=== PATIENT | female | born 1930 | race Caucasian/White ===

== ENCOUNTER 2017-06-29 17:35 | Observation (INO) | payer MEDICARE, BC ==
[2017-06-29] MEDS ORDERED: Labetalol IV* 5 MG/ML 20 ML VIAL IV PUSH ONE ×2 (18:03→19:36)
[2017-06-29 18:31] LABS: Hematocrit 44 % (35-47); Hemoglobin 14.5 g/dl (12.0-16.0); Mean Corpuscular HGB Conc 33 g/dl (31-36); Mean Corpuscular Hemoglobin 30 pg (27-31); Mean Corpuscular Volume 90 fL (80-97); Mean Platelet Volume 8 um3 (7.4-10.4); Red Blood Count 4.85 10^6/ul (4.0-5.4); Red Cell Distribution Width 14 % (10.5-15); White Blood Count 6.7 10^3/ul (3.5-10.8)
[2017-06-29 18:48] LABS: BUN/Creatinine Ratio 17.7 (8-20); Calcium 9.4 mg/dL (8.6-10.3); EGFR African American 88.3 (>60); EGFR Non-African American 68.7 (>60); Globulin 3.7 g/dL (2-4); Potassium 3.5 mmol/L (3.5-5.0); Total Bilirubin 0.4 mg/dL (0.2-1.0); Total Protein 7.7 g/dL (6.4-8.9)
[2017-06-29 18:49] LABS: Troponin I 0.01 ng/mL (<0.04)
[2017-06-29 19:21] LABS: Urine Bacteria Absent (Absent); Urine Bilirubin Negative (Negative); Urine Glucose Negative (Negative); Urine Nitrite Negative (Negative)
[2017-06-29 19:27] LABS: TSH (Thyroid Stimulating Horm) 6.06 mcIU/mL (0.34-5.60)
--- NOTE | 2017-06-29 19:29 | RAD ---
INDICATION: Headache and hypertension COMPARISON: CT of the brain dated November 24, 2015 TECHNIQUE: Contiguous axial sections of the brain were obtained from the skull base to the vertex without contrast. FINDINGS: The ventricles, cisterns and sulci exhibit symmetrical extensive involutional changes unchanged from the prior CT examination. There is mild to moderate periventricular and subcortical white matter hypoattenuation, similar in appearance to the prior CT examination, most consistent with chronic microvascular disease.. The haynes-white matter differentiation is adequately maintained and there is no sulcal effacement. No significant focal abnormality or mass effect is present. There is no evidence for intracranial hemorrhage. Similar the prior CT examination, the left vertebral artery is either absent or extremely diminutive relative to the right. No significant focal osseous abnormality is present. The visualized portion of the paranasal sinuses and mastoid air cells appear clear. IMPRESSION: Chronic involutional and microvascular changes not significantly changed since the November 24, [address]
--- NOTE | 2017-06-29 19:33 | RAD ---
INDICATION: Hypertension COMPARISON: Chest x-ray dated November 24, 2015 TECHNIQUE: Single AP portable view of the chest was obtained. FINDINGS: Image quality is compromised due to the relative inferiority of a portable chest x-ray. The left upper chest cardiac pacemaker with 2 leads overlying the heart is unchanged from prior chest x-ray. The heart and mediastinum exhibit normal size and contour. Similar the prior chest x-ray, the lungs appear hyperaerated on the AP view. The lungs are grossly clear. There is no evidence of a large pleural effusion. Visualized bones are normal for the patient's age. IMPRESSION: No radiographic evidence for acute cardiopulmonary abnormality on this portable chest x-ray.
[2017-06-29] MEDS ORDERED: Ondansetron INJ* 2 MG/ML VIAL IV ONE (19:54)
[2017-06-29] MEDS ORDERED: Morphine INJ* 2 MG/ML 1 ML CARPUJECT IV ONE (19:54)
[2017-06-29] MEDS ORDERED: Iohexol 350* (CONTRAST) 500 ML MDV IV ONE (20:00)
[2017-06-29] MEDS ORDERED: Morphine INJ* 4 MG/ML 1 ML CARPUJECT ONE (20:36)
[2017-06-29] MEDS ORDERED: Morphine INJ* 4 MG/ML 1 ML CARPUJECT IV ONE (20:40)
--- NOTE | 2017-06-29 21:27 | RAD ---
CPT II: CPT II Codes: 3100F INDICATION: High blood pressure, diaphoresis and neck pain COMPARISON: None TECHNIQUE: A CT angiogram of the head and neck was performed with 80 cc of Omnipaque 350. Contiguous axial sections were obtained from the thoracic inlet through the the [place]. Images were reconstructed in the sagittal, coronal planes and in a 3-D volume rendered format. The distal cervical internal carotid artery diameter is used as the denominater for stenosis measurement. 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 The left common carotid artery branches directly from the arch of the aorta. The branch vessels of the aorta are tortuous and there are distribution but appear to be thoroughly patent. The common and internal carotid arteries are patent without hemodynamically significant stenosis. Right: Below the carotid bifurcation the common carotid artery measures 7 mm in short axis diameter. There is partially calcified atherosclerosis of the carotid bulb narrowing the lumen to 6 mm yielding 14% degree stenosis Left: Below the carotid bifurcation the common carotid artery measures 6 mm in diameter. There is mixed attenuation atherosclerosis of the carotid bulb narrowing the lumen to just under 5 mm yielding approximately 17% degree stenosis. The left vertebral artery is diminutive relative to the right. CTA of the brain: The internal carotid, anterior and middle cerebral arteries appear are patent without high grade stenosis or occlusion. The vertebral, basilar and posterior cerebral arteries appear patent without high grade stenosis or occlusion. The the [place] is complete with bilateral posterior communicating arteries identified. No focal luminal filling defect, aneurysm or vascular malformation is seen. NON-ARTERIAL FINDINGS: Degenerative changes of the cervical spine includes kyphotic deformity of the upper cervical spine and multilevel loss of intervertebral disc height. IMPRESSION: 1. No acute arterial abnormalities. 2. Degenerative changes as well as congenital variants described in body the report.
[2017-06-29] MEDS ORDERED: Acetaminophen TAB* 325 MG PO PRN (22:28)
[2017-06-29] MEDS ORDERED: Ondansetron INJ* 2 MG/ML VIAL IV PRN (22:28)
[2017-06-29] MEDS: hydrALAZINE IV* 20 MG/ML VIAL IV SLOW PU PRN (22:54)
[2017-06-29] MEDS ORDERED: amLODIPine TAB* 5 MG PO SCH (23:00)
[2017-06-29 23:16] LABS: T4 8.85 mcg/mL (6.09-12.23)
[2017-06-29 23:20] LABS: Free T3 3.4 pg/mL (2.5-3.9)
[2017-06-29 23:21] LABS: Free T4 1.24 ng/dL (0.61-1.12)
[2017-06-29 23:25] LABS: Total T3 0.83 ng/mL (0.87-1.78)
[2017-06-30] MEDS: cloNIDine TAB* 0.1 MG PO SCH ×2 (00:10→08:17)
[2017-06-30] MEDS: Carvedilol TAB* 6.25 MG PO SCH ×2 (00:10→08:18)
[2017-06-30] MEDS: hydrALAZINE IV* 20 MG/ML VIAL IV SLOW PU PRN (00:41)
--- NOTE | 2017-06-30 01:37 | HP ---
CC: Dr. Mitchell * HISTORY AND PHYSICAL: DATE OF ADMISSION: 06/29/17 PRIMARY CARE PROVIDER: Dr. Mitchell. ATTENDING PHYSICIAN WHILE IN THE HOSPITAL: Rajinder Urena MD * (report dictated by Vinnie Shah NP) CHIEF COMPLAINT: Headache. HISTORY OF PRESENT ILLNESS: Ms. Morgan is an 87-year-old female who over the last week has been having difficulty with blood pressure management. She has been checking it at home, following it closely and she has been following with her primary with attempts to get control of the blood pressure. She does have a visiting nurse who came in today and checked the blood pressure, it was noted to be in the 200s systolically. They tried getting in touch with her PCP but they were unsuccessful. The patient was instructed that should she have any symptoms of headache or chest pain that she should be evaluated. Later this afternoon she started developing pain in the back of her head, having headache, it was very severe. She did not have vision change, no chest pain, no shortness of breath. There has been no swelling or weight gain. There was concern though, because she was starting to have symptoms of headache. The patient decided to come into the ER today to be evaluated. Again, she denied having any chest pain. No weight change. When she came in here, blood pressures were in the 200s and initially responded to blood pressure medication here. They were coming down in the 160s systolically; however, she still had headache and the blood pressure was noted to go back up in the 180s and because of this we were asked to evaluate for admission. She does state that she has been under some stress recently as her sister did earlier this fall and that has been causing her some increased stress. She denies having any increased salt in her diet and states that she has not missed any blood pressure medications and there has not been any recent stoppages of blood pressure meds or changes. She came into the ER, was evaluated because of the labile blood pressure and the fact that her symptoms still had returned, but not as severe as previously, we were asked to evaluate for admission. PAST MEDICAL HISTORY: Significant for: 1. Hypertension. 2. Hiatal hernia. 3. GERD. 4. Depression. 5. Anxiety. 6. History of small bowel obstruction. PAST SURGICAL HISTORY: 1. She has had a pacemaker placement. 2. Appendectomy. 3. She has had small bowel resection. MEDICATIONS: Home meds, this is from Dr. Mitchell. We will try to clarify this tomorrow, but includes: 1. Ativan 0.5 mg p.o. daily as needed. 2. Catapres 0.3 mg p.o. b.i.d. 3. Lisinopril 40 mg daily. 4. B12, 1000 mcg p.o. daily. 5. D3, 1000 units p.o. daily. 6. Coreg 12.5 mg p.o. b.i.d. 7. Aspirin 81 mg daily. 8. Norvasc 5 mg at bedtime. 9. Tylenol 325 mg every 6 hours as needed. 11. Colace 200 mg p.o. at bedtime. ALLERGIES TO MEDICATIONS: No known drug allergies. FAMILY HISTORY: Mother had history of CAD. Father had history of prostate cancer. SOCIAL HISTORY: She does not smoke, does not drink. Surrogate decision maker is her son. REVIEW OF SYSTEMS: There is no documented fever. She denied having any significant weight changes. There was no double vision. There was no ear discharge. She denied having any rhinorrhea. There was no sore throat, no thyroid enlargement. Denied having any chest pain. There was no orthopnea, no nocturnal dyspnea. There was no abdominal pain. No nausea, no vomiting, no dysuria, no frequency, no seizure. There was no loss of consciousness. No pruritus. No skin ulceration. Review of 14 systems was completed, all others negative. PHYSICAL EXAMINATION GENERAL: At this time, Ms. Morgan is an 87-year-old female patient. She appears to be well nourished, well developed. She does not appear to be in any acute distress. She is sitting in the ER stretcher. VITAL SIGNS: Blood pressure 177/77, the last one in the room was 186/80. Heart rate was 65, respirations 16, O2 sat 96%, temperature 97.4. HEENT: Head: Atraumatic, normocephalic. Eyes: EOMs are intact. Sclerae anicteric and not pale. Throat: Oral mucosa appears to be moist. No oropharyngeal erythema. NECK: Supple. LUNGS: Clear to auscultation bilaterally. No wheezes, rales or rhonchi. HEART: Sounds S1 and S2. Regular rate and rhythm. No murmurs, rubs or gallops. ABDOMEN: Soft, flat, nontender. Bowel sounds present. EXTREMITIES: Pulses 2+ throughout. She is able to move all 4 extremities with 5/5 strength. NEUROLOGIC: The patient is awake. She is alert. She is oriented x3. Tongue is midline. Kettle Skimmer are equal. Hwxlzx-ip-hsho intact bilaterally. No gross focal deficits. SKIN: Intact. LABORATORY DATA/DIAGNOSTIC STUDIES: Labs revealed WBC of 6.7, RBC of 4.85, hemoglobin 14.5, hematocrit 44, platelet count 183,000. Sodium 133, potassium 3.5, chloride 99, bicarb 29, BUN 14, creatinine 0.79, glucose 94, calcium 9.4. Total bilirubin 0.4. AST 17, ALT 10, alk phos of 70. Troponin 0.01. BNP 114. TSH of 6.06. Urine obtained showed low specific gravity, 2+ protein, 1+ blood , 1+ RBC. The patient had a chest x-ray obtained today, impression: Showed no radiographic evidence for acute cardiopulmonary abnormality on this portable x- ray. She had a brain CT obtained today, showed chronic involutional change and microvascular changes not significantly changed since 2016 exam. Head CTA was obtained today, which showed no acute arterial abnormalities, degenerative changes, as well as congenital variants described in the body of the report. EKG obtained today shows a normal sinus rhythm, rate of 69. She did have some ST depressions in V5 and V6. No ST elevations. It was reviewed with previous EKGs, previous EKGs were paced. I looked back to unpaced rhythms previously, this ST depression is similar. Old medical records were reviewed. ASSESSMENT AND PLAN: Ms. Morgan is an 87-year-old female patient coming into the ER today with complaints of headache, found to have uncontrolled blood pressure. She will be admitted under observation status for: 1. Hypertensive urgency. Blood pressure now is in the 180s, it has gone up, they had it down in the 160s here in the ED. She has a little bit of pain in the back of her head, it is not as bad as it was before. I am going to give her p.r.n. hydralazine now. We will increase her Norvasc. We will give her her p.m. medications and we will increase the Norvasc to 10 mg daily. We could consider increasing the carvedilol as well that she is on 12.5, we could go up to 25 b.i.d., but I would like to do stepwise approach. We will place her on telemetry, cycle her troponins and get an echo. 2. Gastroesophageal reflux disease. Continue meds as prescribed. 3. Depression and anxiety. She has p.r.n. Ativan, we will continue with supportive care. 4. Hiatal hernia. Again she has a PPI therapy. 5. DVT prophylaxis. Because of the elevated blood pressure, I am just going to put her on SCDs and once the blood pressure is better controlled, we can consider adding heparin. 6. Code status, full code. 7. Fluid, electrolytes and nutrition. She can have a heart healthy diet. TIME SPENT: On the admission 60 minutes; greater than half the time was spent face- to-face with the patient obtaining my history and physical, other half of time was spent going over the plan of care and implementing plan of care. I did discuss the plan of care with my attending, Dr. Urena; he is in agreement. VINNIE SHAH, ANGELIQUE [id number]/CPS #: [id number] CHAYO
[2017-06-30 06:35] LABS: Hematocrit 42 % (35-47); Hemoglobin 14.2 g/dl (12.0-16.0); Mean Corpuscular HGB Conc 34 g/dl (31-36); Mean Corpuscular Hemoglobin 30 pg (27-31); Mean Corpuscular Volume 89 fL (80-97); Mean Platelet Volume 8 um3 (7.4-10.4); Red Blood Count 4.78 10^6/ul (4.0-5.4); Red Cell Distribution Width 14 % (10.5-15); White Blood Count 7.8 10^3/ul (3.5-10.8)
[2017-06-30 06:48] LABS: BUN/Creatinine Ratio 15.9 (8-20); Calcium 9.7 mg/dL (8.6-10.3); EGFR African American 84.6 (>60); EGFR Non-African American 65.8 (>60)
[2017-06-30] MEDS ORDERED: Lisinopril TAB* 10 MG PO SCH (09:00)
[2017-06-30] MEDS ORDERED: Aspirin EC Low Dose* 81 MG TAB.EC PO SCH (09:00)
[2017-06-30] MEDS ORDERED: Omeprazole CAP* 20 MG PO SCH (09:00)
--- NOTE | 2017-06-30 10:25 | ECHO ---
Patient: GINETTE CARR Rec#: [id number] : 1930 Date: 06/30/2017 Age: 87y Weight: kg / NaN lbs Sex: F Room#: 451 Admit Date#: 06/29/2017 Type: Inpatient Referring: Vinnie Shah NP Reading: Bahman Hannah MD Offc Spec: Belkys Lindsay RDCS CC: Jake Mitchell DO Transthoracic Echocardiogram Indication: Hypertension BP: 124/58 HR: 61 Rhythm: Paced Findings History: HTN,GERD,depression-anxiety,s/p Pacer for SSS. Technical Comments: The study quality is good. Completed at 0840. Left Ventricle: The left ventricular chamber size is decreased. Mild to moderate concentric left ventricular hypertrophy is observed. Global left ventricular wall motion and contractility are within normal limits. There is normal left ventricular systolic function. The estimated ejection fraction is 60-65%. There is abnormal ventricular septal wall motion consistent with right ventricular pacemaker. Left Atrium: The left atrial chamber size is normal. Right Ventricle: The right ventricular cavity size is normal. The right ventricular global systolic function is normal. The septum has abnormal paradoxical motion consistent with RV pacemaker. A pacemaker wire is visualized in the right ventricle. Right Atrium: The right atrial cavity size is normal. A pacemaker wire is visualized in the right atrium. Aortic Valve: The aortic valve is trileaflet. There is mild to moderate aortic regurgitation. There is no evidence of aortic stenosis. Mitral Valve: The mitral valve leaflets appear normal. There is mitral annular calcification. The mitral valve leaflets are mildly thickened. Tricuspid Valve: There is mild to moderate tricuspid regurgitation. There is evidence of mild to moderate pulmonary hypertension. There is no tricuspid stenosis. Pulmonic Valve: The pulmonic valve appears normal. There is a trace pulmonic regurgitation. There is no pulmonic stenosis. Pericardium: The pericardium appears normal. Aorta: There is no dilatation of the ascending aorta. There is no dilatation of the aortic arch. There is no dilation of the aortic root. Pulmonary Artery: The main pulmonary artery appears normal. Venous: The inferior vena cava appears normal in size. There is a greater than 50% respiratory change in the inferior vena cava dimension. Conclusions The left ventricular chamber size is decreased. Mild to moderate concentric left ventricular hypertrophy is observed. There is normal left ventricular systolic function. The estimated ejection fraction is 60-65%. There is abnormal ventricular septal wall motion consistent with right ventricular pacemaker. A pacemaker wire is visualized in the right ventricle. A pacemaker wire is visualized in the right atrium. There is mild to moderate aortic regurgitation. There is mild to moderate tricuspid regurgitation. There is evidence of mild to moderate pulmonary hypertension. There is a trace pulmonic regurgitation. Compared to report of study from 02/28/2010 the LV hypertrophy is now seen. The aortic regurgitation is mildly increased (was mild). Measurements Name Value Normal Range RVIDd (AP) 2D 3 cm (0.9 - 2.6) RVDdMajor (2D) 3.3 cm (2.2 - 4.4) RAd ISD 4CH 5.1 cm (3.4 - 4.9) RA (A4C)W 3.5 cm (2.9 - 4.6) IVSd (2D) 1.5 cm (0.6 - 1) LVPWd (2D) 1.2 cm (0.6 - 1) LVIDd (2D) 3.1 cm (3.6 - 5.4) LVIDs (2D) 2.5 cm - LV FS (2D) 19 % (25 - 45) Aortic Annulus 1.9 cm (1.4 - 2.6) Ao root diameter (2D) 3.2 cm (2.1 - 3.5) Ascending Ao 3.2 cm (2.1 - 3.4) Aortic arch 2.2 cm (1.8 - 3.4) Descending Ao 0.3 cm - LA dimension (AP) 2D 2.6 cm (2.3 - 3.8) LAd ISD 4CH 5.2 cm (2.9 - 5.3) LA ISD 4CH W 3.5 cm (2.5 - 4.5) Name Value Normal Range LA ESV SP 4CH (A/L) 49 ml - LA ESV SP 2CH (A/L) 62 ml - LA ESV BP (A/L) 59 ml - LA ESV BP (A/L) index 43.01 ml/m2 - LA ESV SP 4CH (MOD) 41 ml - LA ESV SP 2CH (MOD) 58 ml - Name Value Normal Range MV E-wave Vmax 0.4 m/sec - MV deceleration time 304 msec - MV A-wave Vmax 1.2 m/sec - MV E:A ratio 0.34 ratio - LV septal e' Vmax 0.02 m/sec - LV lateral e' Vmax 0.08 m/sec - LV E:e' septal ratio 20 ratio - LV E:e' lateral ratio 5 ratio - Name Value Normal Range AV Vmax 1.4 m/sec - AV VTI 31.7 cm - AV peak gradient 7.99 mmHg - AV mean gradient 3.96 mmHg - LVOT Vmax 1 m/sec - LVOT VTI 27.8 cm - LVOT peak gradient 4.4 mmHg - LVOT mean gradient 1.97 mmHg - AR PHT 539 msec - AR peak gradient 74.17 mmHg - Name Value Normal Range TR Vmax 3.2 m/sec - TR peak gradient 40 mmHg - RAP 3 mmHg - RVSP 43 mmHg - IVC diameter 1.4 cm - Name Value Normal Range PV Vmax 0.7 m/sec - PV peak gradient 2.08 mmHg -
[2017-06-30 11:46] VITALS: BP 117/57
--- NOTE | 2017-07-01 10:34 | DS ---
CC: Dr. Jake Mitchell * DISCHARGE SUMMARY: DATE OF ADMISSION: 06/29/17 DATE OF DISCHARGE: 06/30/17 ADMISSION DIAGNOSES: 1. Headache. 2. Hypertensive urgency. 3. GERD. 4. Hiatal hernia. 5. Depression. 6. Anxiety. DISCHARGE DIAGNOSES: 1. Headache. 2. Hypertensive urgency. 3. GERD. 4. Hiatal hernia. 5. Depression. 6. Anxiety. HOSPITAL COURSE: The patient is an 87-year-old woman who presents to the [facility] with a chief complaint of headache. She had been having difficulty with blood pressure management. Please see HPI for further details. The patient was admitted with systolic in 180s. The patient was placed on hydralazine. Her Norvasc was increased. The patient improved dramatically overnight. Her blood pressure on discharge was 117/57. Her headache resolved. The patient was stable for discharge to home. PHYSICAL EXAMINATION: On the day of discharge, well-developed, well-nourished woman, sitting up in bed, in no acute distress. Vital Signs: Temperature 97.8 degrees, heart rate 62 beats per minute, respiratory rate 16 breaths per minute , pulse ox 98%, blood pressure 117/57. HEENT: Normocephalic and atraumatic. Pupils are equal, round, and reactive to light. Moist mucous membranes. Neck: Supple. No JVD, bruits, palpable thyroid or lymphadenopathy. Chest: Clear to auscultation and percussion bilaterally. Cardiovascular: S1, S2 appreciated. Abdominal Exam: Positive bowel sounds in all 4 quadrants. Soft, nontender, and nondistended. No hepatosplenomegaly. Extremities: No cyanosis , clubbing, or edema. +2 peripheral pulses bilaterally. Neuro: Alert and oriented x3. Moves all extremities. Skin: No rashes or abnormalities. STUDIES DONE WHILE IN THE HOSPITAL: Chest x-ray, 06/29/17. Impression: No radiographic evidence for acute cardiopulmonary abnormality on this portable chest x-ray. Brain CT, 06/29/17. Impression: Chronic involutional microvascular changes, not significantly changed since 12/04/[address] Head CTA, 06/29/17. Impression: No acute arterial abnormalities, degenerative changes, as well as congenital variant described in the body of the report. Transthoracic echocardiogram, 06/29/17. Impression: Left ventricular chamber size is decreased, [id number] left ventricular hypertrophy observed. Normal left ventricular systolic function. Estimated ejection fraction is 60% to 65%. Abnormal ventricular septal wall motion consistent with right ventricular pacemaker. Pacemaker wire is visualized in the right ventricle. Pacemaker wire is visualized in the right atrium. Zjbo-vk-weactyes aortic regurg , riko-co-umodepie tricuspid regurg, evidence feuc-ex-jacojtch pulmonary hypertension, trace pulmonic regurgitation. Compared to report and study of 31/05, LV hypertrophy is now seen, the aortic regurgitation is mildly increased , it was mild. DISCHARGE MEDICATIONS: 1. Lorazepam 0.5 mg daily as needed. 2. Clonidine 0.3 mg twice daily. 3. Omeprazole 20 mg daily. 4. Lisinopril 40 mg daily. 5. Vitamin B12 1000 micrograms daily. 6. Cholecalciferol 1000 units daily. 7. Carvedilol 12.5 mg twice daily. 8. Aspirin 81 mg daily. 9. Acetaminophen 325 mg every 6 hours as needed. 10. Docusate 200 mg at bedtime. 11. Amlodipine 10 mg at bedtime. DISCHARGE PLAN: The patient will be discharged home. She is to follow up with her PCP within 1 week. The patient will return to the ED if symptoms recur. TIME SPENT: Over 35 minutes were spent on this discharge, more than 20 minutes of which was spent in direct qxwj-ts-fgrm contact with the patient, in evaluation, physical exam, counseling, and coordination of care. [id number]/CPS #: [id number] MTDD
--- NOTE | 2017-07-01 13:15 | ED ---
Navya Dumont Alfonso, scribed for Geoff Barksdale MD on 06/29/17 at 1802 . Complex/Multi-Sys Presentation - HPI Summary HPI Summary: This patient is an 87 year old F presenting to [facility] accompanied by son with a chief complaint of high blood pressure since two weeks ago. The patient rates the aching pain 5/10 in severity. Symptoms aggravated and alleviated by nothing. Patient reports diaphoresis, fatigue, and occipital headache. Patient denies extremity weakness, and blurred vision. - History Of Current Complaint Chief Complaint: EDHypertension Time Seen by Provider: 06/29/17 17:52 Hx Obtained From: Patient Onset/Duration: Gradual Onset, Lasting Weeks - 2, Still Present Timing: Constant Aggravating Factor(s): nothing Alleviating Factor(s): nothing Associated Signs And Symptoms: Positive: Other - diaphoresis, fatigue, and occipital headache. Patient denies extremity weakness, and blurred vision. - Allergies/Home Medications Allergies/Adverse Reactions: Allergies Allergy/AdvReac Type Severity Reaction Status Date / Time No Known Allergies Allergy Verified 02/25/17 15:19 PMH/Surg Hx/FS Hx/Imm Hx Cardiovascular History: Reports: Hx Hypertension, Hx Pacemaker/ICD - ICD GI History: Reports: Hx Hiatal Hernia, Hx Obstructive Bowel Sensory History: Reports: Hx Contacts or Glasses Opthamlomology History: Reports: Hx Contacts or Glasses EENT History: Denies: Hx Deafness - Surgical History Surgery Procedure, Year, and Place: pacemaker, bowels x2, appendectomy Infectious Disease History: No Infectious Disease History: Denies: Traveled Outside the [place] in Last 30 Days - Family History Known Family History: Positive: Hypertension - Social History Alcohol Use: Daily Alcohol Amount: 1 glass of wine a day Hx Substance Use: No Substance Use Type: Reports: None Hx Tobacco Use: No Smoking Status (MU): Never Smoked Tobacco Review of Systems Positive: Fatigue, Skin Diaphoresis. Negative: Fever Negative: Blurred Vision Positive: Other - High blood pressure Positive: Headache. Negative: Weakness All Other Systems Reviewed And Are Negative: Yes Physical Exam - Summary Physical Exam Summary: VITAL SIGNS: Reviewed. GENERAL: Patient is an elderly and nourished female who is lying comfortable in the stretcher. Patient is not in any acute respiratory distress. HEAD AND FACE: No signs of trauma. No ecchymosis, hematomas or skull depressions. No sinus tenderness. EYES: PERRLA, EOMI x 2, No injected conjunctiva, no nystagmus. Normal fundoscopy exam. EARS: Hearing grossly intact. Ear canals and tympanic membranes are within normal limits. MOUTH: Oropharynx within normal limits. NECK: Supple, trachea is midline, no adenopathy, no JVD, no carotid bruit, no c- spine tenderness, neck with full ROM. CHEST: Symmetric, no tenderness at palpation LUNGS: Clear to auscultation bilaterally. No wheezing or crackles. CVS: Regular rate and rhythm, S1 and S2 present, no murmurs or gallops appreciated. ABDOMEN: Soft, non-tender. No signs of distention. No rebound no guarding, and no masses palpated. Bowel sounds are normal. EXTREMITIES: FROM in all major joints, no edema, no cyanosis or clubbing. NEURO: Alert and oriented x 3. No acute neurological deficits. Speech is normal and follows commands. SKIN: Dry and warm Triage Information Reviewed: Yes Vital Signs On Initial Exam: Initial Vitals Temp Pulse Resp BP Pulse Ox 97.4 F 80 14 200/102 97 06/29/17 17:41 06/29/17 17:41 06/29/17 17:41 06/29/17 17:41 06/29/17 17:41 Vital Signs Reviewed: Yes - [place] Coma Scale Best Eye Response: 4 - Spontaneous Best Motor Response: 6 - Obeys Commands Best Verbal Response: 5 - Oriented Coma Scale Total: 15 Diagnostics - Vital Signs Vital Signs Temp Pulse Resp BP Pulse Ox 06/29/17 17:41 97.4 F 80 14 200/102 97 - Laboratory Result Diagrams: 06/29/17 18:25 06/29/17 18:25 Lab Statement: Any lab studies that have been ordered have been reviewed, and results considered in the medical decision making process. - Radiology CXR Radiology Interpretation Completed By: Radiologist - Pending official interpretation from radiologist. See [employer] - CT Brain CT Interpretation Completed By: Radiologist - Pending official interpretation from radiologist. See [employer] - EKG 1813 Cardiac Rate: NL EKG Rhythm: Sinus Rhythm - 71 BPM EKG Interpretation: Q waves in II and AVF. LVH. EKG Comparison: No Significant Change - 02/26/17 Complex Multi-Symp Course/Dx Assessment/Plan: This patient is an 87 year old F presenting to [facility] accompanied by son with a chief complaint of high blood pressure since two weeks ago. The patient rates the aching pain 5/10 in severity. Symptoms aggravated and alleviated by nothing. Patient reports diaphoresis, fatigue, and occipital headache. Patient denies extremity weakness, and blurred vision. An EKG reveals Sinus Rhythm, Q waves in II and AVF, and LVH. Initially the patient was placed on panel monitor, IV access was obtained, and she was given labetalol for the hypertension. The patient is still waiting CT brain, CXR, and blood results. The patients blood pressure has improved to 180/85 at this time. This patient will be signed out to Dr. Garcia to follow up test results, and for further assessment and disposition. The patient is hemodynamically stable, alert and oriented x3. - Diagnoses Provider Diagnoses: Uncontrolled hypertension Discharge - Discharge Plan Condition: Stable Disposition: OTHER Discharge Disposition Comment: Signed out to Dr. Garcia, pending disposition, awaiting CT, CXR, and labs. Referrals: Jake Mitchell DO [Primary Care Provider] - The documentation as recorded by the Navya fairbanks Alfonso accurately reflects the service I personally performed and the decisions made by , Geoff Barksdale MD.
== END 2017-06-30 16:33 | disposition home or self-care (01) ==
LOC: ED 17:35 → MEDTELE 22:26
PROVIDERS: ADMIT Hospitalist; ATTEND Internal Medicine
DX: I16.0 Hypertensive urgency (principal); R51 Headache; K21.9 Gastro-esophageal reflux disease without esophagitis; K44.9 Diaphragmatic hernia without obstruction or gangrene; F32.9 Major depressive disorder, single episode, unspecified; F41.9 Anxiety disorder, unspecified; Z95.0 Presence of cardiac pacemaker; Z79.82 Long term (current) use of aspirin; Z79.899 Other long term (current) drug therapy
CPT/HCPCS: 36415; 70450; 70496; 70498; 71010; 80048; 80053; 81003; 81015; 83880; 84436; 84439; 84443; 84479; 84481; 84484; 85025; 85610; 93005; 93306; 96374; 96375; 99285; A9270-GY; G0378; J0360; J2270; J2405; Q9967

== ENCOUNTER 2017-07-01 16:16 | Inpatient (IN) | payer MEDICARE, BC ==
[2017-07-01] MEDS ORDERED: NS 0.9% 1000 ML* 1,000 ML IV ONE (17:01)
[2017-07-01] MEDS ORDERED: fentaNYL* 50 MCG/ML 2 ML VIAL (100 MCG VIAL) IV SLOW PU ONE (17:28)
--- NOTE | 2017-07-01 18:08 | RAD ---
INDICATION: Fainting COMPARISON: Most recent comparison chest x-rays dated June 29, 2017 TECHNIQUE: Single AP portable view of the chest was obtained. FINDINGS: Image quality is compromised due to the relative inferiority of a portable chest x-ray. Again seen is a left upper chest cardiac pacemaker with 2 leads overlying the heart. The heart and mediastinum exhibit normal size and contour. The lungs are grossly clear. There is no evidence of a large pleural effusion. Visualized bones are normal for the patient's age. IMPRESSION: No radiographic evidence for acute cardiopulmonary abnormality on this portable chest x-ray.
[2017-07-01 18:13] LABS: Urine Bacteria Absent (Absent); Urine Bilirubin Negative (Negative); Urine Glucose Negative (Negative); Urine Nitrite Negative (Negative)
[2017-07-01 18:26] LABS: Hematocrit 42 % (35-47); Mean Corpuscular HGB Conc 33 g/dl (31-36); Mean Corpuscular Hemoglobin 30 pg (27-31); Mean Corpuscular Volume 90 fL (80-97); Mean Platelet Volume 8 um3 (7.4-10.4); Red Blood Count 4.66 10^6/ul (4.0-5.4); Red Cell Distribution Width 14 % (10.5-15); White Blood Count 17.9 10^3/ul (3.5-10.8)
[2017-07-01 18:42] LABS: Albumin 3.5 g/dL (3.2-5.2); BUN/Creatinine Ratio 23.1 (8-20); Calcium 8.6 mg/dL (8.6-10.3); EGFR African American 64.3 (>60); Globulin 3.2 g/dL (2-4); Potassium 3.7 mmol/L (3.5-5.0); Total Bilirubin 0.8 mg/dL (0.2-1.0); Total Protein 6.7 g/dL (6.4-8.9)
[2017-07-01 18:43] LABS: Troponin I 0.01 ng/mL (<0.04)
--- NOTE | 2017-07-01 19:01 | ED ---
Eun Dumont Gabriel, scribed for Sherry Sherman MD on 07/01/17 at 1657 . Syncope/Near Syncope - HPI Summary HPI Summary: This patient is an 87 year old F BIBA to [facility] accompanied by family with a chief complaint of a near syncopal episode that occurred this afternoon. Patient reports pain in the back of her neck, body tremors, weakness, and BP spikes. 5 days prior her BP was elevated and went to her PCP there a PA suggested upping her medication by 5mg but it did not prevent future spikes. She was hospitalized for it 2 nights ago. Today she drank prune juice for BM which induced diarrhea. - History Of Current Complaint Chief Complaint: EDGeneral Time Seen by Provider: 07/01/17 16:28 Hx Obtained From: Patient Onset/Duration: Lasting Hours - earlier in the day, Still Present Alleviating Factor(s): Nothing Associated Signs And Symptoms: Other - reports pain in the back of her neck, body tremors, weakness, and BP spikes Related History: Similar Episode/Dx as - 5 and 2 days ago - Allergies/Home Medications Allergies/Adverse Reactions: Allergies Allergy/AdvReac Type Severity Reaction Status Date / Time No Known Allergies Allergy Verified 02/25/17 15:19 Home Medications: Home Medications Acetaminophen TAB* [Tylenol TAB*] 325 mg PO Q6H PRN 07/01/17 [History Confirmed 07/01/17] Carvedilol TAB* [Coreg TAB*] 12.5 mg PO BID 07/01/17 [History Confirmed 07/01/17 ] Lisinopril [Lisinopril 40 MG-] 40 mg PO DAILY 07/01/17 [History Confirmed ] PMH/Surg Hx/FS Hx/Imm Hx Previously Healthy: No Cardiovascular History: Reports: Hx Auto Implanted Cardiovert Defib, Hx Hypertension, Hx Pacemaker/ICD - ICD GI History: Reports: Hx Hiatal Hernia, Hx Obstructive Bowel Sensory History: Reports: Hx Contacts or Glasses Denies: Hx Deafness, Hx Hearing Aid Opthamlomology History: Reports: Hx Contacts or Glasses - Surgical History Surgery Procedure, Year, and Place: pacemaker, bowels x2, appendectomy Infectious Disease History: No Infectious Disease History: Denies: Traveled Outside the [place] in Last 30 Days - Family History Known Family History: Positive: Hypertension Negative: Diabetes - Social History Alcohol Use: Daily Alcohol Amount: 1 glass of wine a day Hx Substance Use: No Substance Use Type: Reports: None Hx Tobacco Use: No Smoking Status (MU): Never Smoked Tobacco Review of Systems Constitutional: Other - body tremors Positive: Other - BP spikes Positive: Diarrhea - due to prune juice Positive: Other - pain in the back of neck Positive: Weakness Positive: Other - near syncopal episode All Other Systems Reviewed And Are Negative: Yes Physical Exam - Summary Physical Exam Summary: General: Well appearing, no pain distress Skin: Warm, Skin Color Reflects Adequate Perfusion, Dry Eyes: EOMI, DARRYN ENT: Pharynx normal, TMs normal Neck: Supple, nontender Respiratory: CTA, breath sounds present, no rhonchi, no wheezes, no rales Cardiovascular: RRR, no murmur, no rub, no gallop Abdomen: Soft, nontender, Non-distended, no guarding, no rebound Bowel: Present Musculoskeletal: JOEL, No edema, pain with raising right leg Neuro: Sensory/motor intact, A&Ox3, CN intact 2-12 Psych: Affect/mood appropriate Triage Information Reviewed: Yes Vital Signs On Initial Exam: Initial Vitals Temp Pulse Resp BP Pulse Ox 100.3 F 84 16 178/84 96 07/01/17 16:31 07/01/17 16:31 07/01/17 16:31 07/01/17 16:31 07/01/17 16:31 Vital Signs Reviewed: Yes Diagnostics - Vital Signs Vital Signs Temp Pulse Resp BP Pulse Ox 07/01/17 16:31 100.3 F 84 16 178/84 96 - Laboratory Lab Results: Lab Results 07/01/17 07/01/17 07/01/17 Range/Units 17:42 18:15 18:15 WBC 17.9 H (3.5-10.8) 10^3/ul RBC 4.66 (4.0-5.4) 10^6/ul Hgb 14.0 (12.0-16.0) g/dl Hct 42 (35-47) % MCV 90 (80-97) fL MCH 30 (27-31) pg MCHC 33 (31-36) g/dl RDW 14 (10.5-15) % Plt Count 154 (150-450) 10^3/ul MPV 8 (7.4-10.4) um3 Neut % (Auto) 94.7 H (38-83) % Lymph % (Auto) 1.3 L (25-47) % [place] % (Auto) 3.6 (1-9) % Eos % (Auto) 0.3 (0-6) % Baso % (Auto) 0.1 (0-2) % Absolute Neuts (auto) 16.9 H (1.5-7.7) 10^3/ul Absolute Lymphs (auto) 0.2 L (1.0-4.8) 10^3/ul Absolute Monos (auto) 0.6 (0-0.8) 10^3/ul Absolute Eos (auto) 0.1 (0-0.6) 10^3/ul Absolute Basos (auto) 0 (0-0.2) 10^3/ul Absolute Nucleated RBC 0 10^3/ul Nucleated RBC % 0 INR (Anticoag Therapy) 0.93 (0.89-1.11) APTT 26.9 (26.0-36.3) seconds Sodium (133-145) mmol/L Potassium (3.5-5.0) mmol/L Chloride (101-111) mmol/L Carbon Dioxide (22-32) mmol/L Anion Gap (2-11) mmol/L BUN (6-24) mg/dL Creatinine (0.51-0.95) mg/dL Est GFR ( Amer) (>60) Est GFR (Non-Af Amer) (>60) BUN/Creatinine Ratio (8-20) Glucose (70-100) mg/dL Lactic Acid (0.5-2.0) mmol/L Calcium (8.6-10.3) mg/dL Total Bilirubin (0.2-1.0) mg/dL AST (13-39) U/L ALT (7-52) U/L Alkaline Phosphatase (34-104) U/L Troponin I (<0.04) ng/mL Total Protein (6.4-8.9) g/dL Albumin (3.2-5.2) g/dL Globulin (2-4) g/dL Albumin/Globulin Ratio (1-3) Urine Color Yellow Urine Appearance Clear Urine pH 5.0 (5-9) Ur Specific [place] 1.010 (1.010-1.030) Urine Protein Negative (Negative) Urine Ketones Negative (Negative) Urine Blood 1+ H (Negative) Urine Nitrate Negative (Negative) Urine Bilirubin Negative (Negative) Urine Urobilinogen Negative (Negative) Ur Leukocyte Esterase Negative (Negative) Urine WBC (Auto) Trace(0-5/hpf) (Absent) Urine RBC (Auto) Trace(0-2/hpf) (Absent) Ur Squamous Epith Cells Present H (Absent) Urine Bacteria Absent (Absent) Urine Glucose Negative (Negative) 07/01/17 07/01/17 Range/Units 18:15 18:15 WBC (3.5-10.8) 10^3/ul RBC (4.0-5.4) 10^6/ul Hgb (12.0-16.0) g/dl Hct (35-47) % MCV (80-97) fL MCH (27-31) pg MCHC (31-36) g/dl RDW (10.5-15) % Plt Count (150-450) 10^3/ul MPV (7.4-10.4) um3 Neut % (Auto) (38-83) % Lymph % (Auto) (25-47) % [place] % (Auto) (1-9) % Eos % (Auto) (0-6) % Baso % (Auto) (0-2) % Absolute Neuts (auto) (1.5-7.7) 10^3/ul Absolute Lymphs (auto) (1.0-4.8) 10^3/ul Absolute Monos (auto) (0-0.8) 10^3/ul Absolute Eos (auto) (0-0.6) 10^3/ul Absolute Basos (auto) (0-0.2) 10^3/ul Absolute Nucleated RBC 10^3/ul Nucleated RBC % INR (Anticoag Therapy) (0.89-1.11) APTT (26.0-36.3) seconds Sodium 131 L (133-145) mmol/L Potassium 3.7 (3.5-5.0) mmol/L Chloride 99 L (101-111) mmol/L Carbon Dioxide 24 (22-32) mmol/L Anion Gap 8 (2-11) mmol/L BUN 24 (6-24) mg/dL Creatinine 1.04 H (0.51-0.95) mg/dL Est GFR ( Amer) 64.3 (>60) Est GFR (Non-Af Amer) 50.0 (>60) BUN/Creatinine Ratio 23.1 H (8-20) Glucose 98 (70-100) mg/dL Lactic Acid 1.1 (0.5-2.0) mmol/L Calcium 8.6 (8.6-10.3) mg/dL Total Bilirubin 0.80 (0.2-1.0) mg/dL AST 19 (13-39) U/L ALT 10 (7-52) U/L Alkaline Phosphatase 64 (34-104) U/L Troponin I 0.01 (<0.04) ng/mL Total Protein 6.7 (6.4-8.9) g/dL Albumin 3.5 (3.2-5.2) g/dL Globulin 3.2 (2-4) g/dL Albumin/Globulin Ratio 1.1 (1-3) Urine Color Urine Appearance Urine pH (5-9) Ur Specific [place] (1.010-1.030) Urine Protein (Negative) Urine Ketones (Negative) Urine Blood (Negative) Urine Nitrate (Negative) Urine Bilirubin (Negative) Urine Urobilinogen (Negative) Ur Leukocyte Esterase (Negative) Urine WBC (Auto) (Absent) Urine RBC (Auto) (Absent) Ur Squamous Epith Cells (Absent) Urine Bacteria (Absent) Urine Glucose (Negative) Result Diagrams: 07/01/17 18:15 07/01/17 18:15 Lab Statement: Any lab studies that have been ordered have been reviewed, and results considered in the medical decision making process. - Radiology CXR Radiology Interpretation Completed By: Radiologist - No radiographic evidence for acute cardiopulmonary abnormality on this portable chest x-ray. ED physician has reviewed this radiology report and agrees. Course/Dx Course Of Treatment: 87 yo female who went home yesterday from [facility] [place] with dx of hypertension had rigors a recorded low bp at home followed by a normal bp and she was brought back in. her wbc is 18 and the case has been discussed with Dr. Bear for admission - Diagnoses Provider Diagnoses: Near syncope, Leukocytosis - Physician Notifications Discussed Care of Patient With: Zak Hearn Time Discussed With Above Provider: 18:40 Instructed by Provider To: Other - We discussed patient care with Dr. Hearn, hospitalist and they have agreed to admit the patient. Discharge - Discharge Plan Condition: Stable Disposition: ADMITTED TO [facility] Referrals: Jake Mitchell DO [Primary Care Provider] - The documentation as recorded by the Eun fairbanks Gabriel accurately reflects the service I personally performed and the decisions made by me, Sherry Sherman MD.
[2017-07-01 19:43] LABS: Hematocrit 41 % (35-47); Hemoglobin 13.5 g/dl (12.0-16.0); Mean Corpuscular HGB Conc 33 g/dl (31-36); Mean Corpuscular Hemoglobin 30 pg (27-31); Mean Corpuscular Volume 89 fL (80-97); Mean Platelet Volume 8 um3 (7.4-10.4); Red Blood Count 4.57 10^6/ul (4.0-5.4); Red Cell Distribution Width 14 % (10.5-15); White Blood Count 17.3 10^3/ul (3.5-10.8)
[2017-07-01] MEDS ORDERED: Ondansetron INJ* 2 MG/ML VIAL IV PRN (20:25)
[2017-07-01] MEDS ORDERED: LORazepam TAB(*) 0.5 MG PO PRN (20:29)
[2017-07-01] MEDS ORDERED: NS 0.9% 1000 ML* 1,000 ML IV SCH (20:30)
[2017-07-01] MEDS ORDERED: Iodixanol* (CONTRAST) 320 MG/ML 100 ML SDV IV ONE (20:51)
[2017-07-01 20:52] LABS: C Reactive Protein 2.29 mg/L (< 5.00)
[2017-07-01] MEDS ORDERED: cefTRIAXone(*) 2 GM in NS 0.9% 100 ML* 100 ML IVPB SCH (21:00)
[2017-07-01] MEDS ORDERED: NS 0.9% IVPB SCH (21:00)
[2017-07-01] MEDS ORDERED: ACYCLOVIR IVPB SCH (21:00)
[2017-07-01] MEDS ORDERED: cefTRIAXone(*) 2 GM in NS 0.9% 100 ML* 100 ML IVPB ONE (21:00)
[2017-07-01 21:24] LABS: Erythrocyte Sed Rate 10 mm/Hr (0-40)
--- NOTE | 2017-07-01 21:46 | RAD ---
CLINICAL HISTORY: High blood pressure. Relevant surgical history includes appendectomy and "bowels x 2" COMPARISON: CT abdomen pelvis dated June 08, 2015 TECHNIQUE: Contrast enhanced CT examination of the abdomen and pelvis from the lung bases through the initial tuberosities. The patient received 80 mL Visipaque 320 intravenously prior to imaging.The patient received oral contrast as well prior to imaging. FINDINGS: VISUALIZED LUNG BASES: There is a stable moderate hiatal hernia causing compressive atelectasis along the medial margin of the left lower lobe with air bronchograms. There is pleural-based density along the lateral margin of the right middle lobe similar in appearance to the previous CT examination. The remaining visualized lung bases are clear. ABDOMEN AND PELVIS: In the right lobe of the liver there is an 8 mm hypodensity that is incompletely characterized on this CT examination. The remainder the liver is homogenous in attenuation. The spleen, pancreas and adrenal glands are grossly normal in appearance. The gallbladder is normal. Low-density foci are seen in the kidney that are too small to characterize completely on this CT examination. At the lower pole left kidney there is a low-density cyst measuring 23 Hounsfield unit likely a minimally complex benign cyst. Otherwise the kidneys are normal in appearance without focal mass, calcification or signs of hydronephrosis. Contrast is excreted in the bilateral collecting systems and proximal ureters on the delayed phase imaging. Evaluation of the gastrointestinal tract is limited without oral contrast. The small bowel is nondilated. There is surgical material the base of the cecum and the appendix is not seen consistent with the patient's reported surgical history. At the distal transverse colon and splenic flexure there appears to be wall thickening measuring up to 1.4 cm (axial image 38). Determination of wall thickening is limited without oral contrast. There are rectosigmoid diverticula without definite focal inflammatory change. There is no gross retroperitoneal or mesenteric lymphadenopathy. The pelvic viscera is normal in appearance. There is a small amount of simple fluid in the left inguinal canal. The moderately calcified abdominal aorta and iliac arteries exhibit ectatic curvature bladder otherwise grossly normal Degenerative changes include multilevel loss of intervertebral disc height involving the lower thoracic and lumbar spine, multilevel vacuum disc phenomenon and marginal osteophyte formation.There are no sinister bone lesions. IMPRESSION: 1. At the distal transverse and splenic flexure of the colon there is likely wall thickening measuring up to 1.4 cm in thickness. Evaluation is limited without oral contrast. Please correlate to signs or symptoms of colitis. A neoplastic etiology is not completely excluded. 2. Extensive chronic, degenerative and postsurgical changes that are not substantially changed when compared to the June 08, 2015 CT examination.
--- NOTE | 2017-07-01 21:53 | RAD ---
INDICATION: High blood pressure COMPARISON: None TECHNIQUE: A CT scan of the neck was performed with intravenous contrast following intravenous injection of 50 ml of Omnipaque 300 nonionic contrast. Contiguous axial sections were obtained from the skull base through the lung apices. Images were reconstructed in the coronal and sagittal planes. FINDINGS: The airway is patent. The epiglottis and aryepiglottic folds appear within normal limits. No retropharyngeal soft tissue swelling is noted. No significant enlarged nodes are seen. The parotid and submandibular glands appear to be within normal limits. The thyroid gland appears normal. At the right thyroid there is an 8 mm low-attenuation focus. The lung apices appear clear. The visualized portion of the paranasal sinuses and mastoid air cells appear clear. Degenerative changes of the cervical spine include loss of intervertebral disc height most severely affecting C4/C5 where there is articulating endplates sclerosis. There is a small degree of grade 1 anterolisthesis of C5 over C6. The visualized arteries including the arch of the aorta and branch vessels are adequately patent. There is calcified atherosclerosis at the bilateral carotid bulbs. The left carotid artery appears to become diminutive in its distal portion and is not well seen joining with the right to form the basilar artery. IMPRESSION: 1. Age-appropriate chronic and degenerative changes described above without CT apparent acute pathologic abnormality. 2. 8 mm low-attenuation focus in the right lobe of the thyroid that can be further characterized with nonemergent ultrasound if clinically warranted.
[2017-07-01] MEDS: amLODIPine TAB* 5 MG PO SCH (22:34)
[2017-07-01] MEDS: Carvedilol TAB* 6.25 MG PO SCH (22:35)
--- NOTE | 2017-07-01 22:35 | HP ---
CC: Dr. Mitchell * HISTORY AND PHYSICAL: DATE OF ADMISSION: 07/01/17 PRIMARY CARE PROVIDER: Dr. Mitchell. ATTENDING PHYSICIAN WHILE IN THE HOSPITAL: Rajinder Urena MD * (report dictated by Vinnie Shah NP) CHIEF COMPLAINT: 1. Neck pain. 2. Rigors. 3. Fever. HISTORY OF PRESENT ILLNESS: Ms. Morgan is an 87-year-old female patient who was recently here 2 days ago with uncontrolled hypertension. She had a headache then that seemed to be responsive to decreasing in her blood pressure. She was admitted overnight. She was discharged yesterday. She said she was feeling good yesterday, not having any complaints of neck pain or headache. She was not feeling weak, not having any cough, chills, shortness of breath, chest discomfort, or any diarrhea or vomiting. There was no fevers documented and her white count and labs remained stable. She went to home and around 3 o' clock today it was noted that she was shaking. The family was concerned, they checked her blood pressure, it was significantly low in the 70s systolic. They were concerned, called 911 immediately, 911 got there and they said her systolic blood pressures were in the 200s. They gave her 5 of Lopressor and the patient came into the ER. Unfortunately, her temperature was not documented or taken according to the family and when she got here, it was 100.3. She says the only thing that the family and the patient has been complaining of is that she is having some neck pain. There has been no confusion, no headache, no photophobia. There has been no recent illnesses except that she did have a stye in her right eye which is improving. The family is putting ointment in the eye and has also been using compresses. There has been no congestion, no sore throat, no shortness of breath. She does admit to having some left hip pain and there has been no open areas or rashes noted as well. She is just complaining of feeling weak. There has been no dysuria or any vomiting or any focal joint pain. The patient came in today, was evaluated in the ED, was noted to have a fever and noted to have a white count of 17,000. Noted to have a procalcitonin of 2.6 and because of this, the hospitalist service was asked to evaluate for admission. PAST MEDICAL HISTORY: Significant for: 1. Hypertension. 2. Hiatal hernia. 3. GERD. 4. Depression. 5. Anxiety. 6. History of SBO. PAST SURGICAL HISTORY: 1. The patient has had a pacemaker. 2. Appendectomy. MEDICATIONS: Home medications from yesterday's discharge include: 1. Tylenol 325 mg every 6 hours as needed. 2. Amlodipine 10 mg at bedtime. 3. Prilosec 20 mg daily. 4. Colace 200 mg at bedtime. 5. Vitamin D3, 1000 units p.o. daily. 6. Coreg 12.5 mg p.o. b.i.d. 7. Aspirin 81 mg daily. 8. Catapres 0.3 mg p.o. b.i.d. 9. Lisinopril 40 mg daily. 10. Ativan 0.5 mg daily as needed. 11. B12, 1000 mcg p.o. daily. ALLERGIES TO MEDICATIONS: Include no known drug allergies. FAMILY HISTORY: Mother had a history of CAD, father had prostate cancer. SOCIAL HISTORY: She does not smoke, does not drink. Surrogate decision maker is her son. REVIEW OF SYSTEMS: There is a documented fever here. She denied any significant weight change. No double vision, no ear discharge, no rhinorrhea, no sore throat, and no thyroid enlargement. Denies having any chest pain. There is no orthopnea. There is no nocturnal dyspnea. There was no abdominal pain, no nausea, no vomiting. There was no dysuria, no frequency. There was no seizure. No loss of consciousness, no pruritus, and no skin ulcerations. Review of 14 systems completed and all others negative. PHYSICAL EXAMINATION GENERAL: At this time, Mrs. Morgan is an 87-year-old female patient. She appears to be well nourished and well developed. She does not appear to be in any acute distress. VITAL SIGNS: Blood pressure 156/76, pulse 86, respirations 22, O2 sat 96%, and temperature 100.3. HEENT: Head atraumatic and normocephalic. Eyes: EOMs are intact. Sclerae anicteric and not pale. NECK: Supple. Throat; oral mucosa appears to be dry. No oropharyngeal erythema. LUNGS: Clear to auscultation. No wheezes, rales, or rhonchi. HEART: Sounds S1 and S2. Regular rate and rhythm. No murmurs, rubs, or gallops. ABDOMEN: Soft, flat, and nontender. Bowel sounds present. EXTREMITIES: Pulses were 2+ throughout. She did have pain with manipulation and movement of the left hip. There was no obvious erythema and no obvious pain when palpating the joint. The joint is mobile, but it has pain with movement. She had no pain with neck flexion or extension or rotation. It appeared to be supple at this point. She complains subjectively as having pain. NEUROLOGIC: She is awake, alert, and oriented x3. Tongue midline, chemical waste management technician are equal. No gross focal deficits were noted. SKIN: Intact. LABORATORY DATA/DIAGNOSTIC STUDIES: Today revealed a WBC of 17.3, RBC of 4.57 , hemoglobin 13.5, hematocrit 41, and platelet count of 127,000. She did have a left shift. ESR pending. INR 0.93. PTT of 26.9. Sodium of 131, potassium 3.7, chloride of 99, bicarb 24, BUN 24, creatinine of 1.04 which is up from her baseline of 0.8. Glucose was 98, lactic 1.1, calcium 8.6, total bili 0.8. AST is 19, ALT 10, alk phos 54, troponin 0.01. Albumin was 3.5. Her CRP was normal at 2.29, procalcitonin was 2.6. Urine was obtained, it showed 1+ blood. Serology was obtained; it was negative for flu. She had a chest x-ray obtained today which revealed no radiographic evidence for acute cardiopulmonary abnormality on the portable chest. Old medical records were reviewed. ASSESSMENT AND PLAN: Ms. Morgan is an 87-year-old female patient coming into the emergency department today with complaints of having neck pain, again now having fevers, chills, and now noted to have a white count and elevated procalcitonin. We were asked to evaluate for admission. She will be admitted under inpatient status for: 1. Systemic inflammatory response syndrome. Etiology is unclear. I would like to get a CT of the neck with contrast to make sure that there is not any underlying abscess. If this is negative, I would proceed with a spinal tap which I have asked the ER provider to do if the CT of neck is negative. I also placed her empirically on vanco, ceftriaxone, and acyclovir. I have also ordered CSF studies for cell count, culture, Gram stain, glucose, total protein , and herpes simplex virus. Should we need to proceed if the CT is positive, then I will cancel those orders. I am also ordering a CT of the abdomen and pelvis because of the hip pain she was having to make sure there is no underlying abscesses that we are missing. We did get bryan cultures. I did put her on empiric antibiotics and will hydrate her and will continue to follow her closely. 2. Hypertension. Her blood pressure is controlled in the setting of acute illness. I am going to hold that Salvador inhibitor, but I will continue her other meds. 3. Hiatal hernia and a history of gastroesophageal reflux disease. Continue her PPI therapy. 4. Depression and anxiety. Continue supportive care. 5. DVT prophylaxis. She will be placed on heparin subcu. 6. Code status. Full code. 7. Fluids, electrolytes, and nutrition. She can have a heart-healthy diet. TIME SPENT: On admission 60 minutes, greater than half the time was spent face- to- face with the patient obtaining my history and physical, other half of the time spent going over the plan of care with the patient and implementing the plan of care. I discussed the plan of care with my attending, Dr. Urena, who is in agreement. VINNIE SHAH, ANGELIQUE [id number]/[facility] #: [id number] CHAYO
[2017-07-01] MEDS: cloNIDine TAB* 0.1 MG PO SCH (22:36)
[2017-07-01] MEDS: Docusate CAP* 100 MG PO SCH (22:36)
[2017-07-01] MEDS ORDERED: Ciprofloxacin IV(*) 400 MG in D5W 250 ML BAG* 160 ML IVPB SCH (23:00)
--- NOTE | 2017-07-01 23:21 | HP ---
H&P (Free Text) History and Physical: Mrs Morgan is an 87YO female recently admitted to [facility] for hypertensive urgency, discharged yesterday who today developed rigors and chills and was brought in to [facility] ED via EMS for re-evaluation which found colitis on CT. She continues to have neck pain likely of musculoskeletal etiology. CT C-spine W is negative for acute finding or infection. She cannot have an MRI 2nd pacer. She will be admitted for IV ABX and monitoring.
[2017-07-02] MEDS: metroNIDAZOLE TAB* 250 MG PO SCH ×4 (00:34→20:43)
[2017-07-02] MEDS: Ciprofloxacin 400MG IVPREMIX(* 400 MG/200 ML BAG IVPB SCH ×3 (00:34→22:41)
[2017-07-02] MEDS: Heparin VIAL(*) 5000 UNITS/ML VIAL (FIVE THOUSAND) SUBCUT SCH ×4 (00:34→22:41)
[2017-07-02 07:20] LABS: Hematocrit 38 % (35-47); Hemoglobin 12.7 g/dl (12.0-16.0); Mean Corpuscular HGB Conc 33 g/dl (31-36); Mean Corpuscular Hemoglobin 30 pg (27-31); Mean Corpuscular Volume 91 fL (80-97); Mean Platelet Volume 9 um3 (7.4-10.4); Red Blood Count 4.23 10^6/ul (4.0-5.4); Red Cell Distribution Width 14 % (10.5-15); White Blood Count 10.5 10^3/ul (3.5-10.8)
[2017-07-02 07:21] LABS: BUN/Creatinine Ratio 21.6 (8-20); Blood Urea Nitrogen 21 mg/dL (6-24); CO2 Carbon Dioxide 22 mmol/L (22-32); Calcium 8.4 mg/dL (8.6-10.3); Chloride 102 mmol/L (101-111); EGFR African American 69.7 (>60); EGFR Non-African American 54.2 (>60); Glucose 91 mg/dL (70-100); Sodium 129 mmol/L (133-145)
[2017-07-02 08:10] LABS: Anion Gap 5 mmol/L (2-11)
[2017-07-02] MEDS ORDERED: Pneumococcal *Vac Polyvalent 0.5 ML VIAL IM ONE (09:00)
[2017-07-02] MEDS: cloNIDine TAB* 0.1 MG PO SCH ×2 (09:55→20:41)
[2017-07-02] MEDS: Carvedilol TAB* 6.25 MG PO SCH ×2 (09:55→20:42)
[2017-07-02] MEDS: Cyanocobalamin TAB* 500 MCG PO SCH (09:55)
[2017-07-02] MEDS: Omeprazole CAP* 20 MG PO SCH (09:55)
[2017-07-02] MEDS: Aspirin EC Low Dose* 81 MG TAB.EC PO SCH (09:56)
--- NOTE | 2017-07-02 10:46 | PN ---
Subjective Date of Service: 07/02/17 Interval History: This is an 87 yo female who presented with c/o fever and neck pain after recent hospitalization for hypertensive urgency. Imaging revealed possible colitis in LUQ, but patient denies abd pain, n/v/d. She was empirically treated with Cipro and Flagyl and she feels much better this am. The neck pain she was complaining of has resolved. No new symptoms. Objective Active Medications: Amlodipine Besylate (Norvasc Tab*) 10 mg PO BEDTIME [facility] Last Admin: 07/01/17 22:34 Dose: 10 mg Aspirin (Aspirin Ec Low Dose*) 81 mg PO DAILY [facility] Last Admin: 07/02/17 09:56 Dose: 81 mg Carvedilol (Coreg Tab*) 12.5 mg PO BID [facility] Last Admin: 07/02/17 09:55 Dose: 12.5 mg Clonidine HCl (Catapres Tab*) 0.3 mg PO BID [facility] Last Admin: 07/02/17 09:55 Dose: 0.3 mg Cyanocobalamin (Vitamin B12 Tab*) 1,000 mcg PO DAILY [facility] Last Admin: 07/02/17 09:55 Dose: 1,000 mcg Docusate Sodium (Colace Cap*) 200 mg PO BEDTIME [facility] Last Admin: 07/01/17 22:36 Dose: 200 mg Heparin Sodium (Porcine) (Heparin Vial(*)) 5,000 units SUBCUT Q8HR [facility] Last Admin: 07/02/17 05:30 Dose: 5,000 units Sodium Chloride (Ns 0.9% 1000 Ml*) 1,000 mls @ 100 mls/hr IV PER RATE [facility] Stop: 07/03/17 06:29 Last Admin: 07/02/17 00:34 Dose: 100 mls/hr Ciprofloxacin/Dextrose (Cipro 400 Mg Ivpremix(*)) 400 mg in 200 mls @ 200 mls/ hr IVPB Q12H [facility] Last Admin: 07/02/17 00:34 Dose: 200 mls/hr Lorazepam (Ativan Tab(*)) 0.5 mg PO DAILY PRN PRN Reason: ANXIETY Last Admin: 07/01/17 22:47 Dose: 0.5 mg Metronidazole (Flagyl Tab*) 500 mg PO TID [facility] Last Admin: 07/02/17 09:55 Dose: 500 mg Omeprazole (Prilosec Cap*) 20 mg PO DAILY [facility] Last Admin: 07/02/17 09:55 Dose: 20 mg Ondansetron HCl (Zofran Inj*) 4 mg IV Q6H PRN PRN Reason: NAUSEA Vital Signs: Temp Pulse Resp BP Pulse Ox 97.6 F 65 16 143/65 99 07/02/17 08:02 07/02/17 08:02 07/02/17 08:02 07/02/17 08:02 07/02/17 08:02 Oxygen Devices in Use Now: None Appearance: Well appearing elderly female in NAD. She is sitting up in a chair and accompanied by family. Respiratory: Symmetrical Chest Expansion and Respiratory Effort, Clear to Auscultation Cardiovascular: NL Sounds; No Murmurs; No JVD, RRR Abdominal: NL Sounds; No Tenderness; No Distention Extremities: - - trace LE edema Skin: No Rash or Ulcers Neurological: Alert and Oriented x 3 Result Diagrams: 07/02/17 06:48 07/02/17 08:47 Additional Lab and Data: . Diagnostic Imaging: CT neck - NAD, incidental finding a thyroid nodule CT abd/pelvis - focal wall thickening at the splenic flexure, possibly indicative of colitis CXR - NAD Assess/Plan/Problems-Billing Assessment: This is an 87 yo female with HTN, GERD, depression and anxiety who was recently hospitalized with a hypertensive urgency who returned with fever and neck pain. - Patient Problems (1) Febrile illness Comment: Etiology is not clear CT was suggestive of colitis, but no corresponding symptoms Fever and leukocytosis have resolved Cont Cipro/Flagyl (2) Hyponatremia Comment: h/o SIADH Stop IVF, repeat BMP in am (3) Hypertension Comment: Recent admission for hypertensive urgency Appears well controlled at this time Cont home antihypertensives (4) GERD (gastroesophageal reflux disease) (5) Depression Comment: Stable, no home medications (6) Full code status (7) DVT prophylaxis Comment: HSQ Status and Disposition: Inpatient. Anticipate possible dc tomorrow
[2017-07-02] MEDS ORDERED: Calcium Carbonate CHEW TAB* 500 MG (TUMS) PO PRN (14:32)
[2017-07-02] MEDS: Docusate CAP* 100 MG PO SCH (20:42)
[2017-07-02] MEDS: amLODIPine TAB* 5 MG PO SCH (20:43)
[2017-07-03] MEDS: Heparin VIAL(*) 5000 UNITS/ML VIAL (FIVE THOUSAND) SUBCUT SCH (05:41)
[2017-07-03 06:53] LABS: BUN/Creatinine Ratio 18.2 (8-20); EGFR Non-African American 60.6 (>60)
[2017-07-03 07:12] LABS: Hematocrit 37 % (35-47); Hemoglobin 12.2 g/dl (12.0-16.0); Mean Corpuscular HGB Conc 33 g/dl (31-36); Mean Corpuscular Hemoglobin 30 pg (27-31); Mean Corpuscular Volume 89 fL (80-97); Mean Platelet Volume 8 um3 (7.4-10.4); Red Blood Count 4.14 10^6/ul (4.0-5.4); Red Cell Distribution Width 14 % (10.5-15); White Blood Count 7.1 10^3/ul (3.5-10.8)
[2017-07-03] MEDS: Aspirin EC Low Dose* 81 MG TAB.EC PO SCH (07:44)
[2017-07-03] MEDS: Carvedilol TAB* 6.25 MG PO SCH (07:44)
[2017-07-03] MEDS: cloNIDine TAB* 0.1 MG PO SCH (07:45)
[2017-07-03] MEDS: Cyanocobalamin TAB* 500 MCG PO SCH (07:46)
[2017-07-03] MEDS: metroNIDAZOLE TAB* 250 MG PO SCH (07:47)
[2017-07-03] MEDS: Omeprazole CAP* 20 MG PO SCH (07:47)
[2017-07-03] MEDS ORDERED: Lisinopril TAB* 10 MG PO SCH (09:00)
[2017-07-03 09:20] VITALS: BP 177/76
--- NOTE | 2017-07-04 00:18 | DS ---
CC: Dr. Jake Mitchell * DISCHARGE SUMMARY: DATE OF ADMISSION: 07/01/17 DATE OF DISCHARGE: 07/03/17 PRIMARY CARE PROVIDER: Dr. Jake Mitchell. DISCHARGING PROVIDER: AKSHAT Amato SUPERVISING PHYSICIAN: Aneta Blunt DO * (DICTATED BY AKSHAT AMATO) PRIMARY DISCHARGE DIAGNOSES: 1. Febrile illness with elevated procalcitonin and of unclear source. 2. Hyponatremia. SECONDARY DISCHARGE DIAGNOSES: 1. Hypertension. 2. Gastroesophageal reflux disease. 3. Depression and anxiety. DISCHARGE MEDICATIONS: 1. Amlodipine 10 mg p.o. at bedtime. 2. Aspirin 81 mg p.o. daily. 3. Carvedilol 12.5 mg p.o. twice daily. 4. Vitamin D3, 1000 units p.o. daily. 5. Cipro 500 mg p.o. twice daily x5 days. 6. Clonidine 0.3 mg p.o. twice daily. 7. Vitamin B12, 1000 mcg p.o. daily. 8. Docusate 200 mg p.o. at bedtime. 9. Lisinopril 40 mg p.o. daily. 10. Lorazepam 0.5 mg p.o. daily. 11. Omeprazole 20 mg p.o. daily. MEDICATION CHANGES: Cipro x5 days. HOSPITAL IMAGIN. Chest x-ray shows no acute process. 2. CT of the abdomen and pelvis shows splenic flexure, bowel wall thickening with limited evaluation without oral contrast. 3. CT of the neck shows chronic and degenerative changes but no acute pathology. HOSPITAL COURSE: This is an 87-year-old female with history of hypertension, GERD, depression and anxiety who was admitted earlier in the week with hypertensive urgency and returned to the emergency department for re-evaluation within 24 hours due to fever and rigors with some associated neck pain. The patient did not have any similar episodes during her hospital stay earlier in the week. Her initial labs demonstrated significant leukocytosis with a white blood cell count of 17,900. Chemistry panel was significant for mild hyponatremia, procalcitonin was significantly elevated to 2.6, lactic acid was normal at 1.1. CRP interestingly within normal limits. Her urinalysis was unremarkable. Influenza testing was negative. Chest x-ray negative. Imaging including a CT scan of the cervical spine was unremarkable. She had a CT completed of her abdomen and pelvis as well, which showed some nonspecific thickening at the splenic flexure, possibly indicative of colitis. The patient had no complaints of abdominal pain. She was nontender in the left upper quadrant and had no complaints of nausea, vomiting or diarrhea, making colitis much less likely. The patient was empirically treated with Cipro and Flagyl for a presumed GI source of infection and her white blood cell count returned to normal and she remained afebrile. Her complaints of neck pain also resolved spontaneously. The exact etiology of patient's infection is not clear at the time of discharge. The only focal evidence of infection was bowel wall thickening on the CT, but her symptoms did not correspond. She has improved with antibiotics. DISPOSITION AND FOLLOWUP PLAN: The patient is being discharged to home with an additional 5 days of Cipro. Her blood pressure was noted to be well controlled during her hospital stay. We would recommend following up with her primary care provider next week to reevaluate symptoms. AKSHAT AMATO [id number]/[facility] #: [id number] MTDGuille
== END 2017-07-03 10:20 | disposition home health service (06) | DRG 392 ==
LOC: ED 16:16 → MED 20:23
PROVIDERS: ADMIT Hospitalist; ATTEND Hospitalist
DX: K52.9 Noninfective gastroenteritis and colitis, unspecified (principal); E87.1 Hypo-osmolality and hyponatremia; I10 Essential (primary) hypertension; F32.9 Major depressive disorder, single episode, unspecified; K21.9 Gastro-esophageal reflux disease without esophagitis; K44.9 Diaphragmatic hernia without obstruction or gangrene; R79.89 Other specified abnormal findings of blood chemistry; M54.2 Cervicalgia; F41.9 Anxiety disorder, unspecified; Z80.42 Family history of malignant neoplasm of prostate; Z23 Encounter for immunization; Z79.82 Long term (current) use of aspirin; Z95.810 Presence of automatic (implantable) cardiac defibrillator; Z82.49 Family history of ischemic heart disease and other diseases of the circulatory system
CPT/HCPCS: 36415; 70491; 71010; 74177; 80048; 80053; 81003; 81015; 83605; 84145; 84484; 85025; 85610; 85652; 85730; 86140; 87040; 87502; 90732; 94760; A9270-GY; J0744; J1644; J3010; Q9967

== ENCOUNTER 2017-07-05 10:42 | Observation (INO) | payer MEDICARE, BC ==
--- NOTE | 2017-07-05 12:18 | RAD ---
INDICATION: Syncope. COMPARISON: Comparison is made with a prior CT of the brain from June 29, 2017. Correlation is also made with a prior study from November 24, 2015. TECHNIQUE: Contiguous axial sections of the brain were obtained from the skull base to the vertex without contrast. FINDINGS: The ventricles, cisterns and sulci are enlarged. The ventricles are disproportionately enlarged although unchanged from prior studies. There are areas of decreased attenuation in the subcortical and periventricular white matter most consistent with moderate chronic small vessel ischemic changes. No other focal abnormality or mass effect is seen. There is no evidence for hemorrhage. No significant focal osseous abnormality is seen. The visualized portion of the paranasal sinuses and mastoid air cells appear clear. IMPRESSION: 1. NO EVIDENCE FOR ACUTE INTRACRANIAL ABNORMALITY. 2. ATROPHY AND FINDINGS CONSISTENT WITH CHRONIC SMALL VESSEL ISCHEMIC CHANGES WHICH APPEAR UNCHANGED FROM THE PRIOR STUDY.
--- NOTE | 2017-07-05 12:56 | RAD ---
INDICATION: Syncope. COMPARISON: Comparison is made with a prior chest x-ray study from June 29, 2017. TECHNIQUE: AP and lateral views of the chest were obtained. FINDINGS: The heart appears mildly enlarged and unchanged from the prior exam. There is a dual-chamber transvenous pacemaker present. The lungs are hyperinflated and clear. No pleural effusion is seen. IMPRESSION: NO EVIDENCE FOR ACUTE FINDING.
--- NOTE | 2017-07-05 13:01 | RAD ---
INDICATION: Right shoulder injury. TECHNIQUE: 4 views of the right shoulder were obtained. FINDINGS: The bones are osteopenic. There is widening of the acromioclavicular joint consistent with acromioclavicular separation. No fracture is seen. There is decreased space between the top of the humeral head and acromion process consistent with an underlying rotator cuff tear. There is severe osteoarthritic change in the glenohumeral joint. IMPRESSION: 1. AC SEPARATION, AGE INDETERMINATE, NO FRACTURE IS SEEN. 2. SEVERE OSTEOARTHRITIC CHANGE IN THE GLENOHUMERAL JOINT. 3. DECREASED ACROMIAL HUMERAL INTERVAL CONSISTENT WITH UNDERLYING ROTATOR CUFF TEAR.
--- NOTE | 2017-07-05 13:05 | RAD ---
INDICATION: Right humerus injury. TECHNIQUE: 2 views of the right humerus were obtained. FINDINGS: The bones are in normal alignment. No fracture is seen. There is severe osteoarthritic change in the glenohumeral joint and decreased humeral acromial interval consistent with a rotator cuff tear. IMPRESSION: NO EVIDENCE FOR FRACTURE.
[2017-07-05 13:11] LABS: Hematocrit 41 % (35-47); Hemoglobin 13.5 g/dl (12.0-16.0); Mean Corpuscular HGB Conc 33 g/dl (31-36); Mean Corpuscular Hemoglobin 30 pg (27-31); Mean Corpuscular Volume 90 fL (80-97); Mean Platelet Volume 8 um3 (7.4-10.4); Red Cell Distribution Width 14 % (10.5-15); White Blood Count 10.1 10^3/ul (3.5-10.8)
[2017-07-05 13:28] LABS: Albumin 3.5 g/dL (3.2-5.2); BUN/Creatinine Ratio 16.2 (8-20); EGFR African American 63.6 (>60); EGFR Non-African American 49.5 (>60); Globulin 3.3 g/dL (2-4); Magnesium 1.8 mg/dL (1.9-2.7); Potassium 3.6 mmol/L (3.5-5.0); Total Bilirubin 0.7 mg/dL (0.2-1.0); Total Protein 6.8 g/dL (6.4-8.9)
[2017-07-05 13:30] LABS: Troponin I 0.02 ng/mL (<0.04)
[2017-07-05] MEDS ORDERED: Magnesium Oxide TAB* 400 MG PO ONE (13:30)
[2017-07-05 13:46] LABS: TSH (Thyroid Stimulating Horm) 4.97 mcIU/mL (0.34-5.60)
[2017-07-05 14:12] LABS: Urine Bacteria 1+ (Absent); Urine Bilirubin Negative (Negative); Urine Glucose Negative (Negative); Urine Nitrite Negative (Negative)
[2017-07-05] MEDS ORDERED: Acetaminophen TAB* 325 MG PO PRN (17:17)
[2017-07-05] MEDS ORDERED: LORazepam TAB(*) 0.5 MG PO PRN (17:27)
[2017-07-05] MEDS ORDERED: Enoxaparin(*) 30 MG/0.3 ML SYR SUBCUT SCH (18:00)
--- NOTE | 2017-07-05 18:27 | ED ---
Navya Dumont Alfonso scribed for Geoff Barksdale MD on 07/05/17 at 1152 . Syncope/Near Syncope - HPI Summary HPI Summary: This patient is an 87 year old F BIBA to [facility] accompanied by male with a chief complaint of a witnessed syncopal episode earlier today. Male reports her eyes rolled, she was going backwards, and I caught her. The patient rates the pain 6/10 in severity. Symptoms aggravated by nothing. Symptoms alleviated by spontaneous resolution. Male reports confusion and RUE pain (since yesterday) . Male denies trauma. Patient denies abdominal pain. - History Of Current Complaint Chief Complaint: EDSyncope Time Seen by Provider: 07/05/17 11:20 Hx Obtained From: Patient Onset/Duration: Sudden Onset, Resolved Timing: Constant Context: Witnessed, Loss Of Consciousness Aggravating Factor(s): Nothing Alleviating Factor(s): Spontaneous Resolution Associated Signs And Symptoms: Other - Male reports confusion and RUE pain ( since yesterday). Male denies trauma. Patient denies abdominal pain. 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 Musculoskeletal History: Reports: Other Musculoskeletal History - CT scan shows DDD Sensory History: Reports: Hx Contacts or Glasses Denies: Hx Deafness, Hx Hearing Aid Opthamlomology History: Reports: Hx Contacts or Glasses - Surgical History Surgery Procedure, Year, and Place: pacemaker, bowels x2, appendectomy Infectious Disease History: No Infectious Disease History: Denies: Traveled Outside the [place] in Last 30 Days - Family History Known Family History: Positive: Hypertension Negative: Diabetes - Social History Alcohol Use: one glass of wine a day Alcohol Amount: 1 glass of wine a day Hx Substance Use: No Substance Use Type: Reports: None Hx Tobacco Use: No Smoking Status (MU): Never Smoked Tobacco Review of Systems Negative: Abdominal Pain Positive: Other - RUE pain (since yesterday); negative trauma Neurological: Other - Confusion Positive: Syncope All Other Systems Reviewed And Are Negative: Yes Physical Exam - Summary Physical Exam Summary: VITAL SIGNS: Reviewed. GENERAL: Patient is an elderly, fragile and nourished female who is lying comfortable in the stretcher. Patient is not in any acute respiratory distress. HEAD AND FACE: No signs of trauma. No ecchymosis, hematomas or skull depressions. No sinus tenderness. EYES: PERRLA, EOMI x 2, No injected conjunctiva, no nystagmus. EARS: Hearing grossly intact. Ear canals and tympanic membranes are within normal limits. MOUTH: Oropharynx within normal limits. Dry nasal and oral mucosa. NECK: Supple, trachea is midline, no adenopathy, no JVD, no carotid bruit, no c- spine tenderness, neck with full ROM. CHEST: Symmetric, no tenderness at palpation LUNGS: Clear to auscultation bilaterally. No wheezing or crackles. CVS: Regular rate and rhythm, S1 and S2 present, no gallops appreciated. Ejection systolic murmur 2/6. ABDOMEN: Soft, non-tender. No signs of distention. No rebound no guarding, and no masses palpated. Bowel sounds are normal. EXTREMITIES: FROM in all major joints, no edema, no cyanosis or clubbing. Multiple bruises at RUE. NEURO: Alert and oriented x 3. No acute neurological deficits. Speech is normal and follows commands. SKIN: Dry and warm Triage Information Reviewed: Yes Vital Signs On Initial Exam: Initial Vitals BP 110/55 07/05/17 11:05 Vital Signs Reviewed: Yes - Hewett Coma Scale Best Eye Response: 4 - Spontaneous Best Motor Response: 6 - Obeys Commands Best Verbal Response: 5 - Oriented Coma Scale Total: 15 Diagnostics - Vital Signs Vital Signs Temp Pulse Resp BP Pulse Ox 07/05/17 11:12 102/55 07/05/17 11:09 65 96 07/05/17 11:07 97.3 F 65 18 110/55 96 07/05/17 11:05 110/55 - Laboratory Result Diagrams: 07/05/17 12:40 07/05/17 12:40 Lab Statement: Any lab studies that have been ordered have been reviewed, and results considered in the medical decision making process. - Radiology Shoulder XR Radiology Interpretation Completed By: Radiologist - 1. AC SEPARATION, AGE INDETERMINATE, NO FRACTURE IS SEEN. 2. SEVERE OSTEOARTHRITIC CHANGE IN THE GLENOHUMERAL JOINT. 3. DECREASED ACROMIAL HUMERAL INTERVAL CONSISTENT WITH UNDERLYING ROTATOR CUFF TEAR. ED physician has reviewed this radiology report and agrees. Humerus XR Radiology Interpretation Completed By: Radiologist - NO EVIDENCE FOR FRACTURE. ED physician has reviewed this radiology report and agrees. CXR Radiology Interpretation Completed By: Radiologist - NO EVIDENCE FOR ACUTE FINDING. ED physician has reviewed this radiology report and agrees. - CT Brain CT Interpretation Completed By: Radiologist - 1. NO EVIDENCE FOR ACUTE INTRACRANIAL ABNORMALITY. 2. ATROPHY AND FINDINGS CONSISTENT WITH CHRONIC SMALL VESSEL ISCHEMIC CHANGES WHICH APPEAR UNCHANGED FROM THE PRIOR STUDY. ED physician has reviewed this radiology report and agrees. - EKG 1154 Cardiac Rate: NL EKG Rhythm: Sinus Rhythm - 67 BPM EKG Interpretation: Q wave in III and aVF. EKG Comparison: No Significant Change - 06/29/17 Course/Dx Assessment/Plan: This patient is an 87 year old F BIBA to [facility] accompanied by male with a chief complaint of a witnessed syncopal episode earlier today. Male reports her eyes rolled, she was going backwards, and I caught her. The patient rates the pain 6/10 in severity. Symptoms aggravated by nothing. Symptoms alleviated by spontaneous resolution. Male reports confusion and RUE pain (since yesterday). Male denies trauma. Patient denies abdominal pain. An EKG reveals Sinus Rhythm at 67 BPM, and Q wave in III and aVF. CXR reveals, per radiologist, NO EVIDENCE FOR ACUTE FINDING. ED physician has reviewed this radiology report and agrees. CT Brain reveals, per radiologist, 1. NO EVIDENCE FOR ACUTE INTRACRANIAL ABNORMALITY. 2. ATROPHY AND FINDINGS CONSISTENT WITH CHRONIC SMALL VESSEL ISCHEMIC CHANGES WHICH APPEAR UNCHANGED FROM THE PRIOR STUDY. ED physician has reviewed this radiology report and agrees. Humerus XR reveals, per radiologist, NO EVIDENCE FOR FRACTURE. ED physician has reviewed this radiology report and agrees. Shoulder XR reveals, per radiologist, 1. AC SEPARATION, AGE INDETERMINATE, NO FRACTURE IS SEEN. 2. SEVERE OSTEOARTHRITIC CHANGE IN THE GLENOHUMERAL JOINT. 3. DECREASED ACROMIAL HUMERAL INTERVAL CONSISTENT WITH UNDERLYING ROTATOR CUFF TEAR. ED physician has reviewed this radiology report and agrees. Test results with no significant abnormalities. In the ED course the patient has remained asymptomatic; however had a true witnessed syncopal episode with LOC. I consulted Dr. Velasquez (hospitalist) at 1611 who recommends pacemaker integration and admission. Patient will be admitted to [facility] with follow up from Dr. Velasquez. The patient is agreeable with this plan. The patient is hemodynamically stable, alert and oriented x3. - Diagnoses Provider Diagnoses: Syncope - Physician Notifications Discussed Care of Patient With: Stephanie Velasquez Time Discussed With Above Provider: 16:11 Instructed by Provider To: Other - Consulted Dr. Velasquez (hospitalist) at 1611 who agrees to admit. Discharge - Discharge Plan Condition: Stable Disposition: ADMITTED TO [facility] Referrals: Jake Mitchell DO [Primary Care Provider] - The documentation as recorded by the Navya fairbanks Alfonso accurately reflects the service I personally performed and the decisions made by , Geoff Barksdale MD.
[2017-07-05] MEDS ORDERED: amLODIPine TAB* 5 MG PO SCH (21:00)
[2017-07-05] MEDS: cloNIDine TAB* 0.1 MG PO SCH (21:02)
[2017-07-05] MEDS: Carvedilol TAB* 6.25 MG PO SCH (21:02)
--- NOTE | 2017-07-05 22:32 | HP ---
CC: Dr. Jake Mitchell * HISTORY AND PHYSICAL: DATE OF ADMISSION: 07/05/17 PRIMARY CARE PROVIDER: Dr. Jake Mitchell. ADMITTING PROVIDER: AKSHAT Amato SUPERVISING PHYSICIAN: Dr. Aneta Blunt* (DICTATED BY AKSHAT AMATO) CHIEF COMPLAINT: Syncope. HISTORY OF PRESENT ILLNESS: This is an 87-year-old female with hypertension, depression, and anxiety, who unfortunately has returned for the third time in nearly a week to the emergency department for a different complaint. The patient was seen for hypertensive urgency just about 1 week ago. At that time, her amlodipine was increased from 5 mg daily to 10 mg daily. No other medication changes are made. The patient then returned about 24 hours later with fever and chills. She had leukocytosis, but no obvious source of infection. CT scan of the abdomen and pelvis at that time identified a possible colitis, but her symptoms were not consistent with this. She was empirically treated with Cipro and Flagyl and discharged with ciprofloxacin. Since the time of discharge, the patient states that she did develop some diarrhea. No complaints of abdominal pain, nausea, or vomiting. She also developed some spontaneous right arm pain, which seems to be difficult to locate but somewhere in the shoulder or elbow region, but did not have any trauma. She denies any dizziness, head congestion, ear pain, or presyncopal events. Earlier this morning, the patient walked herself into the bathroom with the use of a walker. Her daughter states that she seems kind of slumped over, but was able to make it into the bathroom where she urinated and then upon leaving the bathroom, the patient called out for help and her daughter and son-in-law rushed in, when she was losing consciousness and helped her slowly lower to the floor. The patient was without consciousness for only a couple of seconds, at which point, she came to and stated that she was hungry. She did not lose bowel or bladder control, no tonic- clonic movements and she quickly became reoriented to the situation. PAST MEDICAL HISTORY: 1. Hypertension. 2. GERD. 3. Depression and anxiety. 4. Pacemaker in place. PAST SURGICAL HISTORY: 1. Pacemaker insertion. 2. Appendectomy. HOME MEDICATIONS: 1. Acetaminophen 325 mg p.o. q.6 hours as needed for pain. 2. Amlodipine 10 mg p.o. at bedtime. 3. Aspirin 81 mg p.o. daily. 4. Carvedilol 12.5 mg p.o. twice daily. 5. Vitamin D3 1000 units p.o. daily. 6. Cipro 500 mg p.o. twice daily for 5 days. 7. Clonidine 0.3 mg p.o. twice daily. 8. Vitamin B12 1000 mg p.o. daily. 9. Docusate 200 mg p.o. at bedtime. 10. Lisinopril 40 mg p.o. daily. 11. Ativan 0.5 mg p.o. daily as needed for anxiety. 12. Prilosec 20 mg p.o. daily. SOCIAL HISTORY: The patient lives at home with her daughter and son-in-law. REVIEW OF SYSTEMS: As noted above in the HPI. All other systems reviewed and considered negative. PHYSICAL EXAMINATION GENERAL: This is a very pleasant 87-year-old female accompanied by her son and [id number]. VITAL SIGNS: Temperature 97.3 degrees Fahrenheit, pulse 66 beats per minute, respiratory rate 18 per minute, oxygen saturation 96% on room air, blood pressure 110/55 mmHg. HEENT: Head is normocephalic, atraumatic. Mucous membranes are pink and moist. RESPIRATORY: Lungs are clear to auscultation without wheezes, crackles, or rhonchi. CARDIOVASCULAR: Heart has a regular rate and rhythm without murmurs, rubs, or gallops. ABDOMEN: Soft and nontender to palpation. EXTREMITIES: No edema appreciated. PSYCH: The patient is alert and appropriately oriented. DIAGNOSTIC STUDIES/LAB DATA: CBC is essentially within normal limits with a white blood cell count of 10,100, hemoglobin of 13.5 g/dL, and a platelet count of 193,000. INR normal at 0.96, PTT normal at 30. Sodium slightly low at 130 mmol/L, BUN 17, creatinine 1.05, random glucose of 102, magnesium was 1.8. BNP 336. Troponin negative at 0.02. TSH was 4.9. Urinalysis within normal limits. Imagin. CT brain shows no acute process. 2. Chest x-ray shows no acute disease. 3. EKG is sinus rhythm without acute ischemia. 4. X-ray of the humerus shows no fracture or other acute process. 5. Shoulder x-ray shows AC separation of uncertain acuity and some degenerative changes. ASSESSMENT AND PLAN: This is an 87-year-old female, who presents for the third time in a week to the emergency department after a syncopal episode. She will be admitted to a period of observation for further evaluation. 1. Syncope - etiology is unclear. Orthostatic vital signs were completed in the emergency department, which were within normal limits. The patient did express dizziness while standing with those, but no change in heart rates or really any change in blood pressure whatsoever. Review of EMS records showed that her blood pressure was 140/90 when they arrived to the home. The only recent medication change is the introduction of Cipro for an unspecified infection with some mild diarrhea, but again no evidence of orthostasis or dehydration on exam. Her pacemaker will be interrogated, [facility] has already been contacted and apparently the information that can be reviewed remotely was unremarkable. We will plan to place her on continuous telemetry monitoring to evaluate for dysrhythmia. Based on the circumstances of her complaints of right arm pain along with a trip to the bathroom that preceded her syncopal episode, I feel like the most likely explanation is vasovagal, maybe associated orthostasis. She is on very high doses of clonidine, which can certainly be associated with orthostatic hypotension and her dose of the amlodipine was also recently increased. We will decrease her clonidine dose to 0.1 mg twice daily from 0.3 mg and continue amlodipine at 10 mg daily. I plan to discontinue her Cipro altogether as she is having some nonspecific orthopedic complaints in her right arm. Imaging of her head and neck vasculature has recently been completed. She had a CTA of the head and neck on 06/29/17, which showed no significant stenosis or aneurysm. 2. Hypertension - the patient is normotensive in the emergency department. We will change antihypertensive medications as described above. 3. Depression and anxiety. The patient appears euthymic. 4. Code status. The patient is full code. 5. DVT prophylaxis. The patient will be started on Lovenox subcu. 6. Healthcare proxy is the patient's son. DISPOSITION: The patient is being admitted to observation status with anticipated discharge tomorrow. AKSHAT AMATO [id number]/[facility] #: [id number] [facility] CENTERGuille
[2017-07-06 06:21] LABS: Hematocrit 38 % (35-47); Hemoglobin 12.7 g/dl (12.0-16.0); Mean Corpuscular HGB Conc 34 g/dl (31-36); Mean Corpuscular Hemoglobin 30 pg (27-31); Mean Corpuscular Volume 89 fL (80-97); Mean Platelet Volume 9 um3 (7.4-10.4); Red Blood Count 4.23 10^6/ul (4.0-5.4); Red Cell Distribution Width 14 % (10.5-15); White Blood Count 8.3 10^3/ul (3.5-10.8)
[2017-07-06 06:38] LABS: BUN/Creatinine Ratio 17.6 (8-20); EGFR African American 81.2 (>60); EGFR Non-African American 63.1 (>60)
[2017-07-06 07:48] LABS: Potassium 3.8 mmol/L (3.5-5.0)
[2017-07-06] MEDS ORDERED: Omeprazole CAP* 20 MG PO SCH (09:00)
[2017-07-06] MEDS ORDERED: Lisinopril TAB* 10 MG PO SCH (09:00)
[2017-07-06] MEDS: cloNIDine TAB* 0.1 MG PO SCH (09:32)
[2017-07-06] MEDS: Carvedilol TAB* 6.25 MG PO SCH (09:34)
[2017-07-06 12:21] VITALS: BP 124/75
--- NOTE | 2017-07-06 13:34 | DCNOTE ---
Subjective Date of Service: 07/06/17 Interval History: Patient seen and examined at bedside. Patient denies dizziness at this time. Has not yet been out of bed. Patient does not remember being dizzy before her episode yesterday. BP controlled here. Not orthostatic. Family History: Unchanged from Admission Social History: Unchanged from Admission Past Medical History: Unchanged from Admission Objective Active Medications: Acetaminophen (Tylenol Tab*) 650 mg PO Q4H PRN Amlodipine Besylate (Norvasc Tab*) 10 mg PO BEDTIME QASIM Carvedilol (Coreg Tab*) 12.5 mg PO BID QASIM Clonidine HCl (Catapres Tab*) 0.1 mg PO BID QASIM Enoxaparin Sodium (Lovenox(*)) 30 mg SUBCUT Q24H QASIM Lisinopril (Prinivil Tab*) 40 mg PO DAILY QASIM Lorazepam (Ativan Tab(*)) 0.5 mg PO DAILY PRN Omeprazole (Prilosec Cap*) 20 mg PO DAILY QASIM Vital Signs Temp Pulse Resp BP Pulse Ox 99.1 F 90 16 124/75 98 07/06/17 11:56 07/06/17 12:19 07/06/17 11:56 07/06/17 12:19 07/06/17 11:56 Oxygen Devices in Use Now: None Appearance: sitting up in bed, NAD Eyes: No Scleral Icterus, PERRLA Ears/Nose/Mouth/Throat: NL Teeth, Lips, Gums Neck: NL Appearance and Movements; NL JVP Respiratory: Symmetrical Chest Expansion and Respiratory Effort, Clear to Auscultation Cardiovascular: NL Sounds; No Murmurs; No JVD, RRR Abdominal: NL Sounds; No Tenderness; No Distention Extremities: No Edema Skin: No Rash or Ulcers Neurological: Alert and Oriented x 3, NL Muscle Strength and Tone Lines/Tubes/Other Access: Clean, Dry and Intact Peripheral IV Nutrition: Taking PO's Result Diagrams: 07/06/17 05:43 07/06/17 05:43 Assess/Plan/Problems-Billing 87 y/o F w/ hx of HTN, GERD, SSS s/p pacer, with 2 recent admissions to [facility] who presented to the ED 07/05 after a syncopal episode. - Patient Problems (1) Syncope (2) GERD (gastroesophageal reflux disease) (3) Hypertension (4) DVT prophylaxis (5) Full code status Status and Disposition: OBV for syncope. Pt stable to be discharged home. See full dictated discharge summary for detail.
--- NOTE | 2017-07-07 06:19 | DS ---
CC: Dr. Reilly * DISCHARGE SUMMARY: DATE OF ADMISSION: 07/05/17 DATE OF DISCHARGE: 07/06/17 PRIMARY CARE PROVIDER: Dr. Mitchell. ATTENDING PHYSICIAN: Dr. Aneta Blunt * (reported dictated by Torin Aragon NP ). FRAME ASSEMBLER: Dr. Reilly. PRIMARY DIAGNOSES: 1. Syncope. 2. Hypertension. 3. Gastroesophageal reflux disease. 4. Sick sinus syndrome, with pacemaker in place. 5. Depression and anxiety. STUDIES WHILE IN THE HOSPITAL: 1. Right humerus x-ray: No evidence for acute fracture. 2. Chest x-ray, 07/05/17: No evidence for acute finding. 3. Shoulder, right, 2 views, 07/05/17: AC separation, age indeterminate, no fracture seen, severe osteoarthritic change in the glenohumeral joint. Decreased acromiohumeral interval consistent with underlying rotator cuff tear. 4. CT of the brain, 07/05/17: No evidence for acute intracranial abnormality, atrophy, and findings consistent with chronic small vessel ischemic changes which appear unchanged from prior study. MEDICATIONS AT THE TIME OF DISCHARGE: Changed medications: 1. Clonidine decreased from 0.3 mg twice daily to 0.1 mg twice daily. Ciprofloxacin has been discontinued. Following medications are all medications the patient came in on: 1. Prilosec 20 mg oral daily. 2. Colace 200 mg oral at bedtime. 3. B12 1000 mcg oral daily. 4. Vitamin D3 1000 units oral daily. 5. Aspirin 81 mg oral daily. 6. Ativan 0.5 mg oral daily as needed. 7. Amlodipine 10 mg oral at bedtime. 8. Carvedilol 12.5 mg oral twice daily. 9. Lisinopril 40 mg in the evening. 10. Tylenol 325 mg oral every 6 hours as needed. HISTORY OF PRESENT ILLNESS AND HOSPITAL COURSE: Ms. Morgan is an 87-year- old female with a history of hypertension, depression, and anxiety, who returned to the emergency room on 07/05/17 for the third time in nearly a week after a syncopal episode. The patient was admitted earlier in the week for hypertensive urgency. At that time, her amlodipine was increased. She then returned 24 hours later with fever and chills. At that time, she was placed on Cipro and Flagyl and discharged on ciprofloxacin. Yesterday, when the patient was walking, she slumped over. The patient was placed on the telemetry floor. The patient recently had vascular imaging of her head and neck which was normal. In addition, the patient has also had recent echocardiogram. The patient's clonidine was decreased to 0.1 mg from 0.3 mg because of the fact it causes orthostatic hypotension. With this decrease, the patient's blood pressure has remained controlled. Around noon, the patient's blood pressure was 129/68. She had vital signs performed at this time, which were negative for any orthostasis. The patient's pacer was interrogated. The pacer interrogation will be faxed to Dr. Reilly's office. The pacer interrogation did show multiple very short AMS episodes that look to be atrial noise that were interpreted as atrial fibrillation. The patient's almond roaster was notified and the patient has followup on 07/14/17 with her almond roaster. Prior to discharge, the patient was ambulated with Nursing with a walker. At this point, the patient appeared to be at baseline and was stable to be discharged home. I gave strict instructions for both the patient and her son regarding monitoring of her blood pressure. They should take her blood pressure every morning and notify her primary care provider if the systolic is less than 120. The patient had a urinalysis done while she was here that was negative, yet the culture grew Staph aureus and Staph epidermidis; this appears to be a contaminant and she will not be treated as she is not symptomatic at this time. In addition, the patient had vague orthopedic complaints of her arm and x-ray was performed and this showed rotator cuff repair of unknown age. The patient should have orthopedic followup if she continues to have pain with her right arm. On 07/06/17, vitals were as follows: Temperature 99.1, heart rate 90, respiratory rate 16, blood pressure 124/75, oxygen saturation 98% on room air. At this point, the patient was stable for discharge. DISCHARGE PLAN: The patient is discharged on a low-sodium diet. The patient has an appointment with her primary care provider, Dr. Mitchell, tomorrow, 07/07/17 , and additionally has an appointment with her almond roaster, Dr. Reilly, on 12/24. The patient should return to the hospital if she experiences any further syncopal episodes or high fever. I have reviewed other instructions with the patient and she is agreeable with the discharge today. This is a summarized report of a complex medical history and hospital stay. For more details, please see the entire medical record. TIME SPENT: Time for the discharge was 50 minutes, and 25 minutes was spent with the patient discussing medications, discharge, and followup instructions. CONDITION ON DISCHARGE: Stable. TORIN ARAGON NP [id number]/[facility] #: [id number] [facility]
== END 2017-07-06 16:00 | disposition home or self-care (01) ==
LOC: ED 10:42 → MEDTELE 17:23
PROVIDERS: ADMIT Internal Medicine; ATTEND Hospitalist
DX: R55 Syncope and collapse (principal); I10 Essential (primary) hypertension; K21.9 Gastro-esophageal reflux disease without esophagitis; Z95.0 Presence of cardiac pacemaker; I49.5 Sick sinus syndrome; F32.9 Major depressive disorder, single episode, unspecified; F41.9 Anxiety disorder, unspecified; Z79.82 Long term (current) use of aspirin; Z79.899 Other long term (current) drug therapy; R94.31 Abnormal electrocardiogram [ECG] [EKG]
CPT/HCPCS: 36415; 70450; 71020; 80048; 80053; 81003; 81015; 83605; 83735; 83880; 84443; 84484; 85025; 85610; 85730; 87077; 87086; 87186; 93005; 96372; 99285; A9270-GY; G0378; J1650

== ENCOUNTER 2017-07-31 01:57 | Emergency (ER) | payer MEDICARE, BC ==
--- OUTSIDE RECORDS SUMMARY | 2017-07-31 02:11 | XMS REPORT ---
:1930 External Reference #:[id number] Author Organization [employer] [facility] Address [address] [place] [address] Phone [phone] Care Team Providers Name Role Phone Asad Bliss MD Primary Care Physician Unavailable Payers Type Date Identification Numbers Payment Provider Subscriber Medicare Primary Effective: Policy Number: Medicare - NGS Ynes Morgan 1995 [id number] PayID: [id number] [address] [place] [address] Commercial Policy Number: [id number] [place] Plan Ynes Morgan PayID: [id number] [address] [place] [address] Problems Date Description Provider Status Onset: Permanent cardiac pacemaker procedure Active Onset: Gastroesophageal reflux disease Active Onset: Essential hypertension Active Onset: Osteoarthritis Active Onset: Incontinence Active Onset: 12/21/2014 Venous retinal branch occlusion Ryann Villa O.D. Active Onset: 12/21/2014 Chalazion Ryann Villa O.D. Active Onset: 12/25/2014 Tear film insufficiency Kennedy Dominguez M.D. Active Onset: 12/25/2014 Pseudophakia Kennedy Dominguez M.D. Active Onset: 03/13/2015 Blepharitis Kennedy Dominguez M.D. Active Onset: 03/13/2015 Neoplastic disease Kennedy Dominguez M.D. Active Onset: 11/05/2015 Internal hordeolum Ryann Villa O.D. Active Onset: 11/05/2015 Myopia Ryann Villa O.D. Active Onset: 11/05/2015 Regular astigmatism Ryann Villa O.D. Active Onset: 11/05/2015 Presbyopia Ryann Villa O.D. 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 Active Family History Date Family Member(s) Problem(s) Comments Father Prostate Cancer Mother No Current Problems Social History Type Date Description Comments Marital Status Legal Status: Occupation [employer] Work Status Retired ETOH Use Consumes 1 glass of wine per day Smoking Patient has never smoked Recreational Drug Use Never Used Drugs Daily Caffeine Consumes on average 2 cups of regular coffee per day Allergies, Adverse Reactions, Alerts Date Description Reaction Status Severity Comments 12/21/2014 Codeine active 12/21/2014 Fosamax active Medications Medication Date Status Form Strength Qnty SIG Indications Ordering Provider Lid Scrubs 10/20/ Active once a Ryann Kaminski 2015 day Roxy Villa Systane Ultra 03/12/ Active Solution 0.4-0.3% 1 drop Kennedy Devries 2014 both eyes Arleo, 3-4 times M.D. a day Warm Compresses 12/20/ Active every day Ryann Kaminski 2014 Roxy Villa Tylenol / Active Tablets 325mg 1 tab Unknown 0000 four times a day as needed Lisinopril / Active Tablets 40mg Shackelford, 0000 Edith M.DKurt Clonidine HCL / Active Tablets 0.2mg Stephen, Cordell 0000 D.O Omeprazole / Active Capsules 40mg Stephen, Cordell 0000 DR D.O Vitamin D / Active Tablets 2000Unit every day Unknown 0000 Vitamin B12 / Active Tablets 100mcg Unknown 0000 Carvedilol / Active Tablets 12.5mg Unknown 0000 Amlodipine / Active Tablets 5mg Nephi, Cordell Besylate 0000 D.O Sertraline HCL / Active Tablets 25mg Stephen, Cordell 0000 D.O Erythromycin 03/14/ Hx Ointment 5mg/GM 1Tube apply to H01.001 Ryann Kaminski 2015 - all four Allen, 12/07/ lids at O.D. 2016 bedtime for 3 weeks Erythromycin 12/25/ Hx Ointment 5mg/GM 1Tubes apply Kennedy Devries 2014 - thin Soraidao, to M.Maribel 2014 left upper lid three times a day for five days Nadolol 00/00/ Hx Tablets 40mg Nephi, Cordell 0000 - D.O 2015 Amlodipine 00/00/ Hx Tablets 5mg Nephi, Cordell Besylate 0000 - D.O 2015 Tylenol Allergy / Hx Tablets 2-5-325mg Unknown Multi-Symptom - 2014 Medications Administered in Office Medication Date Status Form Strength Qnty SIG Indications Ordering Provider Avastin Administered Injection Shlomo Bevacizumab Ml Rosales M.D. Avastin Administered Injection Shlomo Bevacizumab Ml Rosales M.D. Avastin Administered Injection Shlomo Bevacizumab Ml Rosales M.D. Vital Signs Date Vital Result Comment 03/25/2017 BP Systolic 158 mmHg BP Diastolic 72 mmHg Heart Rate 64 /min Respiratory Rate 15 /min 01/28/2017 BP Systolic 159 mmHg BP Diastolic 90 mmHg Heart Rate 67 /min Respiratory Rate 14 /min 12/03/2016 BP Systolic 176 mmHg BP Diastolic 86 mmHg Heart Rate 74 /min Respiratory Rate 12 /min Results Description No Information Procedures Date CPT Code Description Status 04/09/2017 84144 Scanning Computerized Opthalmic Diagnostic Posterior Completed Seg Retina 03/25/2017 61313 Injection Intravitreal Of A Pharmacologic Agent Completed 01/28/2017 92622 Injection Intravitreal Of A Pharmacologic Agent Completed 12/03/2016 28104 Injection Intravitreal Of A Pharmacologic Agent Completed 11/27/2016 83636 Scanning Computerized Opthalmic Diagnostic Posterior Completed Seg Retina 11/27/2016 44642 Determination Of Refractive State Completed 11/27/2016 23095 Est Patient Comprehensive Exam Completed 11/27/2015 00258 Scanning Computerized Opthalmic Diagnostic Posterior Completed Seg Retina 11/27/2015 77149 Est Patient Comprehensive Exam Completed 11/05/2015 24296 Determination Of Refractive State Completed 10/22/2015 98839 Est Patient Intermediate Exam Completed 03/13/2015 62742 Est Patient Comprehensive Exam Completed 01/08/2015 96788 Excision Chalazion Single Completed 12/25/2014 23290 Est Patient Intermediate Exam Completed 05/08/2014 30266 Remove Secondary Cataract, Laser (Yag) Completed 03/28/2014 43796 Fundus Photography With Interpretation And Report Completed 03/28/2014 16925 Est Patient Comprehensive Exam Completed 03/31/2013 95084 Scanning Computerized Opthalmic Diagnostic Posterior Completed Seg Retina 03/31/2013 07169 Est Patient Intermediate Exam Completed 11/29/2012 11842 Scanning Computerized Opthalmic Diagnostic Posterior Completed Seg Retina 11/29/2012 39540 Est Patient Intermediate Exam Completed 08/31/2012 48898 Est Patient Intermediate Exam Completed 05/31/2012 54902 Destruction Lesion Retina, Photocoagulation Completed 03/23/2012 88589 Est Patient Comprehensive Exam Completed 03/23/2012 19044 Fundus Photography With Interpretation And Report Completed 03/19/2011 63780 Extracapsular Cataract Extraction W/Intraocular Lens Completed 03/12/2011 02271 Extracapsular Cataract Extraction W/Intraocular Lens Completed 03/03/2011 47216 Ophthalmic Biometry Completed 03/03/2011 81735 Ophthalmic Biometry Completed 03/03/2011 65547 Scanning Computerized Opthalmic Diagnostic Posterior Completed Seg Retina 02/06/2011 71546 Est Patient Comprehensive Exam Completed 02/05/2010 09319 Scanning Laser W/Interp And Report Completed 02/05/2010 18247 Determination Of Refractive State Completed 02/05/2010 91760 Est Patient Comprehensive Exam Completed 09/20/2007 09948 Est Patient Intermediate Exam Completed 09/20/2007 25796 Determination Of Refractive State Completed 09/20/2007 47589 Scanning Laser W/Interp And Report Completed 12/11/2006 16698 Destruction Lesion Retina, Photocoagulation Completed 12/03/2006 56972 Fluorescein Angiography Completed 11/27/2006 90471 Determination Of Refractive State Completed 11/27/2006 37441 Est Patient Comprehensive Exam Completed 11/18/2005 92900 Determination Of Refractive State Completed 11/18/2005 95184 Est Patient Comprehensive Exam Completed 11/22/2004 98293 Determination Of Refractive State Completed 11/22/2004 16043 Est Patient Comprehensive Exam Completed 08/13/2004 76862 Cancelled Appointment Completed 07/18/2004 48155 Rescheduled Appointment Completed 04/18/2004 25036 New Patient Comprehensive Exam Completed 04/03/2004 17464 Rescheduled Appointment Completed Encounters Type Date Location Provider CPT E/M Dx Office Visit 04/09/2017 Kennedy Dominguez MD, Shlomo Rosales, 47652 H34.8310 1:00p Angelo Z96.1 Office Visit 11/05/2015 2:00p Kennedy Dominguez MD, Ryann Villa O.D. 04825 H00.021 pc H00.024 H52.13 H52.223 H52.4 Office Visit 12/21/2014 1:45p Kennedy Dominguez MD, Ryann Villa O.D. 40415 373.2 pc Office Visit 03/03/2011 12:00p Kennedy Dominguez MD, Kennedy Dominguez M.D. 83490 366.16 pc 362.36 Office Visit 05/28/2005 1:45p Kennedy Dominguez MD, Jean-Pierre Paz M.D. 68197 373.00 pc Plan of Care 07/28/2017 - Shlomo Rosales M.D.H34.8310 [facility] vein occlusion, right eye , with macular edemaComments:Smoking can increase the risk of developing or worsening any eye related disease, as well as affect your overall health. If you are a smoker, we strongly recommend that you quit.If you are not a smoker, we strongly recommend that you do not start. 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 This is when the small veins of the retina have become blocked. Please follow any instructions given to you by Dr. Rosales.Follow up:6 Month Follow Up DFE OCT MAC You can expect to have your eyes dilated at your next visit. If Dr. Rosales orders any additional testing, it may require extra time. We recommend that you bring sunglasses, as dilation drops often make you light sensitive until they wear off. We always recommend you bring someone to drive you home if you are uncomfortable driving with your eyes dilated. If you have any questions before your next visit, feel free to call our office at .Z96.1 Presence of intraocular lensComments: The artificial lens implants in both eyes appear to be stable at this time.
[2017-07-31] MEDS ORDERED: cloNIDine TAB* 0.1 MG PO ONE (02:28)
[2017-07-31 02:44] LABS: Urine Bacteria Absent (Absent); Urine Bilirubin Negative (Negative); Urine Glucose Negative (Negative); Urine Nitrite Negative (Negative)
[2017-07-31 03:06] LABS: Hematocrit 42 % (35-47); Hemoglobin 14.2 g/dl (12.0-16.0); Mean Corpuscular HGB Conc 34 g/dl (31-36); Mean Corpuscular Hemoglobin 30 pg (27-31); Mean Corpuscular Volume 88 fL (80-97); Mean Platelet Volume 7 um3 (7.4-10.4); Red Blood Count 4.77 10^6/ul (4.0-5.4); Red Cell Distribution Width 14 % (10.5-15); White Blood Count 6.1 10^3/ul (3.5-10.8)
[2017-07-31 03:14] LABS: Albumin 3.8 g/dL (3.2-5.2); BUN/Creatinine Ratio 14.7 (8-20); Calcium 9.4 mg/dL (8.6-10.3); EGFR Non-African American 81.7 (>60); Globulin 3.8 g/dL (2-4); Potassium 3.5 mmol/L (3.5-5.0); Total Bilirubin 0.5 mg/dL (0.2-1.0); Total Protein 7.6 g/dL (6.4-8.9)
[2017-07-31 03:16] LABS: Troponin I 0.01 ng/mL (<0.04)
[2017-07-31] MEDS ORDERED: NS 0.9% 1000 ML* 1,000 ML IV ONE (03:50)
--- NOTE | 2017-07-31 04:29 | ED ---
Yonis Dumont Tiffany, scribcarlos alberto for Moses Castillo on 07/31/17 at 0230 . Complex/Multi-Sys Presentation - HPI Summary HPI Summary: This patient is an 87 year old F presenting to [facility] accompanied by son and [id number] with a chief complaint of headache since one hour ago. The patient rates the pain 8/10 in severity. Symptoms aggravated by nothing. Symptoms alleviated by nothing. Patient reports high blood pressure, frequent urination with little output, neck pain and weakness. Patient denies fever and numbness. Per [id number], the patient checks her blood pressure several times a day due to history of hypertension. The patients hypertension medication was recently changed. Yesterday was the patients first day on her new medication. - History Of Current Complaint Chief Complaint: EDHypertension Time Seen by Provider: 07/31/17 02:11 Hx Obtained From: Patient, Family/Document Reviewer - [id number] Onset/Duration: Lasting Hours - 1 hour ago, Still Present Timing: Constant Severity Currently: Severe - 8/10 Aggravating Factor(s): Nothing Alleviating Factor(s): Nothing Associated Signs And Symptoms: Positive: Other - high blood pressure, frequent urination with little output, neck pain and weakness; NEGATIVE: fever and numbness - Allergies/Home Medications Allergies/Adverse Reactions: Allergies Allergy/AdvReac Type Severity Reaction Status Date / Time No Known Allergies Allergy Verified 02/25/17 15:19 Home Medications: Home Medications Sertraline* [Zoloft*] 25 mg PO QAM 07/31/17 [History Confirmed 07/31/17] hydrALAZINE TAB* [Apresoline TAB*] 25 mg PO TID 07/31/17 [History Confirmed ] PMH/Surg Hx/FS Hx/Imm Hx Previously Healthy: No Cardiovascular History: Reports: Hx Auto Implanted Cardiovert Defib, Hx Hypertension, Hx Pacemaker/ICD GI History: Reports: Hx Hiatal Hernia, Hx Obstructive Bowel, Other GI Disorders - 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 Musculoskeletal History: Reports: Other Musculoskeletal History - CT scan shows DDD Sensory History: Reports: Hx Contacts or Glasses Denies: Hx Deafness, Hx Hearing Aid Opthamlomology History: Reports: Hx Contacts or Glasses Psychiatric History: Reports: Hx Anxiety, Hx Depression - Surgical History Surgery Procedure, Year, and Place: pacemaker, bowels x2, appendectomy Infectious Disease History: Yes Infectious Disease History: Denies: Traveled Outside the [place] in Last 30 Days - Family History Known Family History: Positive: Hypertension Negative: Diabetes - Social History Alcohol Use: Daily Alcohol Amount: 1 glass of wine a day Hx Substance Use: No Substance Use Type: Reports: None Hx Tobacco Use: No Smoking Status (MU): Never Smoked Tobacco Review of Systems Positive: Other - high blood pressure. Negative: Fever Positive: frequency - frequent urination with little output Positive: Other - Neck pain Neurological: Other - NEGATIVE: numbness Positive: Headache, Weakness All Other Systems Reviewed And Are Negative: Yes Physical Exam - Summary Physical Exam Summary: Appearance: Well appearing, no pain distress Skin: warm, dry, reflects adequate perfusion Head/face: normal Eyes: EOMI, DARRYN ENT: normal Neck: supple, non-tender Respiratory: CTA, breath sounds present Cardiovascular: RRR, pulses symmetrical Abdomen: non-tender, soft Bowel: present Musculoskeletal: normal, strength/ROM intact Neuro: normal, sensory motor intact, A&Ox3 Triage Information Reviewed: Yes Vital Signs On Initial Exam: Initial Vitals Temp Pulse Resp BP Pulse Ox 97.7 F 81 16 164/91 99 07/31/17 01:58 07/31/17 01:58 07/31/17 01:58 07/31/17 01:58 07/31/17 01:58 Vital Signs Reviewed: Yes Diagnostics - Vital Signs Vital Signs Temp Pulse Resp BP Pulse Ox 07/31/17 01:58 97.7 F 81 16 164/91 99 - Laboratory Lab Results: Lab Results 07/31/17 07/31/17 07/31/17 Range/Units 02:18 02:45 02:45 WBC 6.1 (3.5-10.8) 10^3/ul RBC 4.77 (4.0-5.4) 10^6/ul Hgb 14.2 (12.0-16.0) g/dl Hct 42 (35-47) % MCV 88 (80-97) fL MCH 30 (27-31) pg MCHC 34 (31-36) g/dl RDW 14 (10.5-15) % Plt Count 228 (150-450) 10^3/ul MPV 7 L (7.4-10.4) um3 Neut % (Auto) 78.4 (38-83) % Lymph % (Auto) 10.1 L (25-47) % [place] % (Auto) 9.0 (1-9) % Eos % (Auto) 2.2 (0-6) % Baso % (Auto) 0.3 (0-2) % Absolute Neuts (auto) 4.8 (1.5-7.7) 10^3/ul Absolute Lymphs (auto) 0.6 L (1.0-4.8) 10^3/ul Absolute Monos (auto) 0.6 (0-0.8) 10^3/ul Absolute Eos (auto) 0.1 (0-0.6) 10^3/ul Absolute Basos (auto) 0 (0-0.2) 10^3/ul Absolute Nucleated RBC 0.01 10^3/ul Nucleated RBC % 0.1 INR (Anticoag Therapy) 0.92 (0.77-1.02) APTT 31.9 (26.0-36.3) seconds Sodium (133-145) mmol/L Potassium (3.5-5.0) mmol/L Chloride (101-111) mmol/L Carbon Dioxide (22-32) mmol/L Anion Gap (2-11) mmol/L BUN (6-24) mg/dL Creatinine (0.51-0.95) mg/dL Est GFR ( Amer) (>60) Est GFR (Non-Af Amer) (>60) BUN/Creatinine Ratio (8-20) Glucose (70-100) mg/dL Lactic Acid (0.5-2.0) mmol/L Calcium (8.6-10.3) mg/dL Total Bilirubin (0.2-1.0) mg/dL AST (13-39) U/L ALT (7-52) U/L Alkaline Phosphatase (34-104) U/L Troponin I (<0.04) ng/mL Total Protein (6.4-8.9) g/dL Albumin (3.2-5.2) g/dL Globulin (2-4) g/dL Albumin/Globulin Ratio (1-3) Urine Color Straw Urine Appearance Clear Urine pH 8.0 (5-9) Ur Specific [place] 1.008 L (1.010-1.030) Urine Protein 2+(100 mg/dl) H (Negative) Urine Ketones Negative (Negative) Urine Blood Negative (Negative) Urine Nitrate Negative (Negative) Urine Bilirubin Negative (Negative) Urine Urobilinogen Negative (Negative) Ur Leukocyte Esterase Negative (Negative) Urine WBC (Auto) Absent (Absent) Urine RBC (Auto) 1+(3-5/hpf) H (Absent) Ur Squamous Epith Cells Present H (Absent) Urine Bacteria Absent (Absent) Urine Glucose Negative (Negative) 07/31/17 07/31/17 Range/Units 02:45 02:45 WBC (3.5-10.8) 10^3/ul RBC (4.0-5.4) 10^6/ul Hgb (12.0-16.0) g/dl Hct (35-47) % MCV (80-97) fL MCH (27-31) pg MCHC (31-36) g/dl RDW (10.5-15) % Plt Count (150-450) 10^3/ul MPV (7.4-10.4) um3 Neut % (Auto) (38-83) % Lymph % (Auto) (25-47) % [place] % (Auto) (1-9) % Eos % (Auto) (0-6) % Baso % (Auto) (0-2) % Absolute Neuts (auto) (1.5-7.7) 10^3/ul Absolute Lymphs (auto) (1.0-4.8) 10^3/ul Absolute Monos (auto) (0-0.8) 10^3/ul Absolute Eos (auto) (0-0.6) 10^3/ul Absolute Basos (auto) (0-0.2) 10^3/ul Absolute Nucleated RBC 10^3/ul Nucleated RBC % INR (Anticoag Therapy) (0.77-1.02) APTT (26.0-36.3) seconds Sodium 127 L (133-145) mmol/L Potassium 3.5 (3.5-5.0) mmol/L Chloride 93 L (101-111) mmol/L Carbon Dioxide 27 (22-32) mmol/L Anion Gap 7 (2-11) mmol/L BUN 10 (6-24) mg/dL Creatinine 0.68 (0.51-0.95) mg/dL Est GFR ( Amer) 105.0 (>60) Est GFR (Non-Af Amer) 81.7 (>60) BUN/Creatinine Ratio 14.7 (8-20) Glucose 123 H (70-100) mg/dL Lactic Acid 0.9 (0.5-2.0) mmol/L Calcium 9.4 (8.6-10.3) mg/dL Total Bilirubin 0.50 (0.2-1.0) mg/dL AST 17 (13-39) U/L ALT 10 (7-52) U/L Alkaline Phosphatase 98 (34-104) U/L Troponin I 0.01 (<0.04) ng/mL Total Protein 7.6 (6.4-8.9) g/dL Albumin 3.8 (3.2-5.2) g/dL Globulin 3.8 (2-4) g/dL Albumin/Globulin Ratio 1.0 (1-3) Urine Color Urine Appearance Urine pH (5-9) Ur Specific [place] (1.010-1.030) Urine Protein (Negative) Urine Ketones (Negative) Urine Blood (Negative) Urine Nitrate (Negative) Urine Bilirubin (Negative) Urine Urobilinogen (Negative) Ur Leukocyte Esterase (Negative) Urine WBC (Auto) (Absent) Urine RBC (Auto) (Absent) Ur Squamous Epith Cells (Absent) Urine Bacteria (Absent) Urine Glucose (Negative) Result Diagrams: 07/31/17 02:45 07/31/17 02:45 Lab Statement: Any lab studies that have been ordered have been reviewed, and results considered in the medical decision making process. - Radiology CXR Radiology Interpretation Completed By: ED Physician - CXR is normal - CT Brain CT Interpretation Completed By: Radiologist - No definitive evidence of acute intracranial hemorrhage, intracranial mass effect, hydrocephalus, or depressed calvarial fracture is appreciated. The visualized portions of the paranasal sinuses are clear. There is white matter that is likely the result of chronic ischemic demyelation. If symptoms or concern persists, correlation with follow up CT or MRI is advised, at your clinical discretion. ED physician has reviewed this radiology report. - EKG 02:31 Cardiac Rate: NL EKG Rhythm: Sinus Rhythm - 76 BPM EKG Interpretation: No acute changes Complex Multi-Symp Course/Dx Course Of Treatment: This patient is an 87 year old F presenting to [facility] accompanied by son and [id number] with a chief complaint of headache since one hour ago. An EKG sinus rhythm 76 BPM and no acute changes. CXR reveals, per ED physician, normal. CT Brain reveals, per radiologist, No definitive evidence of acute intracranial hemorrhage, intracranial mass effect, hydrocephalus, or depressed calvarial fracture is appreciated. The visualized portions of the paranasal sinuses are clear. There is white matter that is likely the result of chronic ischemic demyelation. If symptoms or concern persists, correlation with follow up CT or MRI is advised, at your clinical discretion. Bloodwork/UA obtained. In the ED course the patient was given Catapres. Patient will be discharged and follow up from PCP. The patient is agreeable with this plan. - Diagnoses Differential Diagnoses/HQI/PQRI: Urinary Tract Infection, Other - headache, htn Provider Diagnoses: Headache, Hypertension, Hyponatremia Discharge - Discharge Plan Condition: Stable Disposition: HOME Patient Education Materials: Hyponatremia (ED), Hypertension (ED), General Headache (ED) Referrals: Jake Mitchell, [Primary Care Provider] - 3 Days Additional Instructions: Follow up with your Primary Care Provider in 3 days. Return to the Emergency Room if current symptoms worsen or if new symptoms develop. The documentation as recorded by the Yonis fairbanks Tiffany accurately reflects the service I personally performed and the decisions made by Anna marques Emmanuel.
[2017-07-31 05:13] VITALS: BP 190/86
[2017-07-31 06:03] LABS: Urine Bacteria Absent (Absent); Urine Bilirubin Negative (Negative); Urine Glucose Negative (Negative); Urine Nitrite Negative (Negative)
--- NOTE | 2017-07-31 08:07 | RAD ---
Indication: Headache. CT of the brain was performed without IV contrast. Ventricular structures are midline. No midline shift is noted. Central and cortical atrophy is noted. There is no evidence of intracranial mass or hemorrhage. No other high or low density lesions are identified. IMPRESSION: There is no evidence of intracranial mass or hemorrhage noted.
--- NOTE | 2017-07-31 08:08 | RAD ---
HISTORY: Dizziness COMPARISONS: July 05, 2017, CT dated July 01, 2017 VIEWS: 1: frontal portable view of the chest at 2:38 AM FINDINGS: LINES AND TUBES: Left-sided pacemaker is noted CARDIOMEDIASTINAL SILHOUETTE: The aorta is tortuous. The cardiomediastinal silhouette is otherwise normal for portable technique. PLEURA: The costophrenic angles are sharp. No pleural abnormalities are noted. LUNG PARENCHYMA: There is hyperinflation. There is a focal density of the right lower lung corresponding to the findings noted on previous CT. ABDOMEN: The upper abdomen is clear. There is no subphrenic gas. BONES AND SOFT TISSUES: Degenerative changes are noted along the spine IMPRESSION: 1. HYPERINFLATION. 2. FOCAL DENSITY OF THE RIGHT LOWER LUNG CORRESPONDING TO THE FINDINGS NOTED ON PREVIOUS CT. 3. NO ACTIVE CARDIOPULMONARY DISEASE.
== END 2017-07-31 05:48 | disposition home or self-care (01) ==
LOC: ED 01:57
DX: R51 Headache (principal); I10 Essential (primary) hypertension; E87.1 Hypo-osmolality and hyponatremia; Z95.810 Presence of automatic (implantable) cardiac defibrillator
CPT/HCPCS: 36415; 70450; 71010; 80053; 81003; 81015; 83605; 84484; 85025; 85610; 85730; 93005; 96360; 99283; A9270-GY

== ENCOUNTER 2017-10-03 18:32 | Inpatient (IN) | payer MEDICARE, BC ==
[2017-10-03] MEDS ORDERED: Morphine INJ* 4 MG/ML 1 ML SYRINGE (NEW SYRINGE VERSION) IV ONE ×2 (19:09→21:04)
[2017-10-03] MEDS ORDERED: Ondansetron INJ* 2 MG/ML VIAL IV ONE (19:09)
--- NOTE | 2017-10-03 19:17 | ED ---
Lower Extremity - HPI Summary HPI Summary: 87F presents with left hip pain s/p fall today. She was using her walker which she normal uses. She tried to reach for a jelly brandt and step away from walker and fell onto her left side. She did hit her head. no LOC. she is not on blood thinners. She denies any previous injury to this area. She denies any neck or back pain. She denies any chest pain or shortness breath. All was mechanical fall. Fall was not witnessed. She denies any numbness or tingling. She denies any ankle or knee pain. She has a pacemaker and htn. Her leg is shortened and external rotated. 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 Musculoskeletal History: Reports: Other Musculoskeletal History - CT scan shows DDD Sensory History: Reports: Hx Contacts or Glasses Denies: Hx Deafness, Hx Hearing Aid Opthamlomology History: Reports: Hx Contacts or Glasses Psychiatric History: Reports: Hx Anxiety, Hx Depression - Surgical History Surgery Procedure, Year, and Place: pacemaker, bowels x2, appendectomy Infectious Disease History: No Infectious Disease History: Denies: Traveled Outside the [place] in Last 30 Days - Family History Known Family History: Positive: Hypertension Negative: Diabetes - Social History Alcohol Use: Daily Alcohol Amount: 1 glass of wine a day Hx Substance Use: No Substance Use Type: Reports: None Hx Tobacco Use: No Smoking Status (MU): Never Smoked Tobacco Review of Systems Negative: Fever Negative: Chest Pain Negative: Shortness Of Breath Positive: Myalgia - left hip pain All Other Systems Reviewed And Are Negative: Yes Physical Exam Triage Information Reviewed: Yes Vital Signs On Initial Exam: Initial Vitals Temp Pulse Resp BP Pulse Ox 98.3 F 76 16 183/77 96 10/03/17 18:39 10/03/17 18:39 10/03/17 18:39 10/03/17 18:39 10/03/17 18:39 Vital Signs Reviewed: Yes Appearance: Positive: Well-Appearing Skin: Positive: Warm, Dry Head/Face: Positive: Normal Head/Face Inspection Eyes: Positive: Normal, EOMI, DARRYN, Conjunctiva Clear ENT: Positive: Normal ENT inspection, Pharynx normal, TMs normal Respiratory/Lung Sounds: Positive: Clear to Auscultation, Breath Sounds Present Cardiovascular: Positive: Normal, RRR Musculoskeletal: Positive: Limited @ - left hip, Other - shortened and external rotated, good pulses, capillary refill<2secs, sensation grossly intact Neurological: Positive: Sensory/Motor Intact, CN Intact II-III Psychiatric: Positive: Normal - [place] Coma Scale Best Eye Response: 4 - Spontaneous Best Motor Response: 6 - Obeys Commands Best Verbal Response: 5 - Oriented Coma Scale Total: 15 Diagnostics - Vital Signs Vital Signs Temp Pulse Resp BP Pulse Ox 10/03/17 18:39 98.3 F 76 16 183/ 96 - Laboratory Result Diagrams: 10/03/17 19:55 10/03/17 19:55 Lab Statement: Any lab studies that have been ordered have been reviewed, and results considered in the medical decision making process. - Radiology hip Xray Interpretation: Positive (See Comments) - IMPRESSION: Intertrochanteric fracture of the left hip. Radiology Interpretation Completed By: Radiologist chest Xray Interpretation: Positive (See Comments) - IMPRESSION: LEFT HILAR ATELECTASIS. PACEMAKER LEADS ARE IN PLACE. Radiology Interpretation Completed By: Radiologist - CT brain CT Interpretation: No Acute Changes CT Interpretation Completed By: Radiologist - EKG No standard instances Cardiac Rate: NL EKG Rhythm: Sinus Rhythm EKG Interpretation: sinus rhythm EKG Comparison: No Significant Change Lower Extremity Course/Dx - Course Course Of Treatment: 87F presents with left hip pain s/p fall today. She was using her walker which she normal uses. She tried to reach for a jelly brandt and step away from walker and fell onto her left side. She did hit her head. no LOC. she is not on blood thinners. She denies any previous injury to this area. She denies any neck or back pain. She denies any chest pain or shortness breath. All was mechanical fall. Fall was not witnessed. She denies any numbness or tingling. She denies any ankle or knee pain. She has a pacemaker and htn. Her leg is shortened and external rotated. Neurovascularly intact. normal neuro exam. due to age got CT. CT brain normal. X-ray showed intratrochanteric fracture. Spoke with dr uriarte reccomends admission to hospitalist. Dr. Jimenez agrees to admit. - Diagnoses Differential Diagnosis/HQI/PQRI: Positive: Fracture (Closed), Sprain, Strain Provider Diagnoses: Fracture, intertrochanteric, left femur, Fall, Head injury - Physician Notifications Discussed Care Of Patient With: dr uriarte Time Discussed With Above Provider: 20:30 - will see in morning for surgery Discharge - Discharge Plan Condition: Stable Disposition: ADMITTED TO [facility] Referrals: Jake Mitchell DO [Primary Care Provider] -
--- NOTE | 2017-10-03 20:07 | RAD ---
Indication: Left hip fracture. 2 views of the left femur demonstrates intertrochanteric fracture of the left hip. The diaphysis intact. Degenerative changes of the knee joint is noted. IMPRESSION: Intertrochanteric fracture of the left hip. Remainder of the femur is intact with degenerative changes of the knee joint.
--- NOTE | 2017-10-03 20:08 | RAD ---
Indication: Left hip fracture. Single view of the pelvis demonstrates intertrochanteric fracture of the left hip. Pelvic ring is intact. IMPRESSION: Intertrochanteric fracture of the left hip.
--- NOTE | 2017-10-03 20:09 | RAD ---
Indication: Hip fracture, preop. Single frontal view of the chest performed at 1950 hours was reviewed. Comparison is made with previous exam dated July 29, 2017. No mediastinal shift is noted. Heart is of normal size and configuration. Left perihilar atelectasis is noted. Pacemaker leads are in place. IMPRESSION: LEFT HILAR ATELECTASIS. PACEMAKER LEADS ARE IN PLACE.
[2017-10-03 20:12] LABS: ABS Basophils 0 10^3/ul (0-0.2); ABS Eosinophils 0.1 10^3/ul (0-0.6); ABS Lymphocytes 0.7 10^3/ul (1.0-4.8); ABS Monocytes 0.6 10^3/ul (0-0.8); ABS Neutrophils 10.3 10^3/ul (1.5-7.7); ABS Nucleated RBC 0 10^3/ul; Eosinophil % 0.8 % (0-6); Hematocrit 38 % (35-47); Hemoglobin 12.5 g/dl (12.0-16.0); Lymphocyte % 5.7 % (25-47); Mean Corpuscular HGB Conc 33 g/dl (31-36); Mean Corpuscular Hemoglobin 29 pg (27-31); Mean Corpuscular Volume 88 fL (80-97); Mean Platelet Volume 8 um3 (7.4-10.4); Nucleated Red Blood Cells % 0; Platelet Count 243 10^3/ul (150-450); Red Blood Count 4.27 10^6/ul (4.0-5.4); Red Cell Distribution Width 15 % (10.5-15); White Blood Count 11.7 10^3/ul (3.5-10.8)
[2017-10-03 20:26] LABS: INR 0.91 (0.77-1.02)
[2017-10-03 20:31] LABS: EGFR Non-African American 69.7 (>60)
--- NOTE | 2017-10-03 20:46 | RAD ---
Indication: Head injury. CT of the brain was performed without IV contrast. Comparison is made with previous exam dated July 31, 2017. Ventricular structures are midline. No midline shift is noted. The extra-axial spaces are unremarkable. There is no evidence of intracranial mass or hemorrhage. No other high or low density lesions are identified. Periventricular lucency consistent with chronic ischemic white matter changes noted. No intracranial mass or hemorrhage is noted. Mastoid air cells and paranasal sinuses are clear. IMPRESSION: No intracranial mass or hemorrhage is noted.
[2017-10-03] MEDS ORDERED: fentaNYL* 50 MCG/ML 2 ML VIAL (100 MCG VIAL) ONE (22:45)
[2017-10-03] MEDS: fentaNYL* 50 MCG/ML 2 ML VIAL (100 MCG VIAL) IV SLOW PU PRN (22:47)
[2017-10-03] MEDS ORDERED: Ondansetron INJ* 2 MG/ML VIAL IV PRN (22:50)
[2017-10-03] MEDS ORDERED: CMCS Melatonin (NF) 3 MG TAB PO PRN (22:50)
[2017-10-04] MEDS: fentaNYL* 50 MCG/ML 2 ML VIAL (100 MCG VIAL) IV SLOW PU PRN (00:47)
[2017-10-04 00:51] LABS: Urine Appearance Clear; Urine Blood Negative (Negative); Urine Color Yellow; Urine Ketones Negative (Negative); Urine Protein 2+(100 mg/dL) (Negative); Urine Specific Gravity 1.011 (1.010-1.030); Urine Urobilinogen Negative (Negative)
[2017-10-04] MEDS: oxyCODONE TAB* 5 MG TAB PO PRN ×2 (01:39→18:15)
[2017-10-04] MEDS: HYDROmorphone INJ* 1 MG/ML CARPUJECT SYRINGE IV PRN ×3 (03:05→08:32)
--- NOTE | 2017-10-04 05:24 | HP ---
H&P (Free Text) History and Physical: PCP: Linda Mitchell DO Date/Time: 10/03/2017 0518 CC: L hip pain s/p mechanical fall HPI: Mrs Morgan is an 87YO female HX HTN, depression, anxiety who was walking through her home when she let go of her walker to bend and get some jelly beans from a bowl, lost her balance, & fell landing on her L hip and striking the back of her head. There was no LOC or prodromal symptoms, specifically no chest pain, focal weakness, palpitations, light-headedness, or other issue. She experienced immediate L hip pain and was unable to stand. Upon her arrival to ED it was noted her LLE was shortened and externally rotated. XRY confirmed displaced L intertrochanteric hip FX. Thiago Mclean MD orthopedic surgeon was consulted by ED & agreed to evaluate in the AM. She denies any recent chest pain, palpitations, or SOB. PMedHx HTN SBO hiatal hernia GERD depression/anxiety Ambulatory Orders Omeprazole CAP* [Prilosec CAP* 20 MG] 20 mg PO QPM 06/02/15 Aspirin EC Low Dose* [Ecotrin EC Low Dose 81 MG*] 81 mg PO QPM 11/24/15 Cholecalciferol (Vitamin D3) [Vitamin D3] 1,000 unit PO QAM 11/24/15 Cyanocobalamin TAB* [Vitamin B12 TAB*] 1,000 mcg PO QAM 11/24/15 Docusate CAP* [Colace Cap*] 200 mg PO BEDTIME 11/24/15 LORazepam TAB(*) [Ativan 0.5 MG TAB (*)] 0.25 mg PO QPM 06/29/17 amLODIPine TAB* [Norvasc 5 mg TAB*] 10 mg PO BEDTIME #30 tab 06/30/17 Acetaminophen TAB* [Tylenol TAB*] 325 mg PO Q6H PRN 07/01/17 Carvedilol TAB* [Coreg TAB*] 12.5 mg PO BID 07/01/17 Lisinopril [Lisinopril 40 MG-] 40 mg PO DAILY 07/01/17 Sertraline* [Zoloft*] 25 mg PO QAM 07/31/17 hydrALAZINE TAB* [Apresoline TAB*] 25 mg PO TID 07/31/17 Allergies No Known Allergies Allergy (Verified 02/25/17 15:19) PSurgHx pacer placement appendectomy SocHx: no tobacco, alcohol, or recreational drugs; full code status FamHx: reviewed, non-contributory to her presentation ROS: as above, otherwise reviewed and all were negative vitals: Vital Signs Temp 36.2 C 10/04/17 03:26 Pulse 78 10/04/17 03:26 Resp 18 10/04/17 04:23 BP 115/60 10/04/17 03:26 Pulse Ox 92 10/04/17 03:26 Intake & Output 10/03/17 10/03/17 10/04/17 11:59 23:59 11:59 Weight 51.256 kg 51.256 kg Constitutional: NAD, normally developed, well-nourished elderly white female HEENM: atraumatic; sclera/conjunctiva: anicteric/clear; hearing: clinically intact; oropharynx: clear, mucosa moist Neck: soft tissue: non-tender; thyroid: normal Pulmonary: clear to auscultation bilaterally, good aeration, no accessory muscle use CV: RR/RR, normal S1S2, no carotid bruit, no jugular venous distention, 2+ B DP/ PT, no edema Abdominal: soft, non-distended, non-tender, no rebound/guarding/rigidity, normoactive bowel sounds, no hepatosplenomegaly or masses, no costovertebral angle tenderness Musculoskeletal: general: LLE shortened and externally rotated; gait: currently non-ambulatory Integumental: normal appearance and texture of exposed skin Psychiatric orientation: AA&O to PPS affect: calm mood: cooperative eye contact: fair content: reliable responses: timely insight: good Testing: Lab Results 10/03/17 10/03/17 10/03/17 Range/Units 19:55 19:55 19:55 WBC 11.7 H (3.5-10.8) 10^3/ul RBC 4.27 (4.0-5.4) 10^6/ul Hgb 12.5 (12.0-16.0) g/dl Hct 38 (35-47) % MCV 88 (80-97) fL MCH 29 (27-31) pg MCHC 33 (31-36) g/dl RDW 15 (10.5-15) % Plt Count 243 (150-450) 10^3/ul MPV 8 (7.4-10.4) um3 Neut % (Auto) 88.2 H (38-83) % Lymph % (Auto) 5.7 L (25-47) % [place] % (Auto) 5.0 (0-7) % Eos % (Auto) 0.8 (0-6) % Baso % (Auto) 0.3 (0-2) % Absolute Neuts (auto) 10.3 H (1.5-7.7) 10^3/ul Absolute Lymphs (auto) 0.7 L (1.0-4.8) 10^3/ul Absolute Monos (auto) 0.6 (0-0.8) 10^3/ul Absolute Eos (auto) 0.1 (0-0.6) 10^3/ul Absolute Basos (auto) 0 (0-0.2) 10^3/ul Absolute Nucleated RBC 0 10^3/ul Nucleated RBC % 0 INR (Anticoag Therapy) 0.91 (0.77-1.02) APTT 36.0 (26.0-36.3) seconds Sodium 131 L (133-145) mmol/L Potassium 3.6 (3.5-5.0) mmol/L Chloride 99 L (101-111) mmol/L Carbon Dioxide 26 (22-32) mmol/L Anion Gap 6 (2-11) mmol/L BUN 16 (6-24) mg/dL Creatinine 0.78 (0.51-0.95) mg/dL Est GFR ( Amer) 89.6 (>60) Est GFR (Non-Af Amer) 69.7 (>60) BUN/Creatinine Ratio 20.5 H (8-20) Glucose 135 H (70-100) mg/dL Lactic Acid (0.5-2.0) mmol/L Calcium 9.3 (8.6-10.3) mg/dL Total Bilirubin 0.40 (0.2-1.0) mg/dL AST 17 (13-39) U/L ALT 10 (7-52) U/L Alkaline Phosphatase 72 (34-104) U/L Troponin I 0.00 (<0.04) ng/mL Total Protein 7.3 (6.4-8.9) g/dL Albumin 3.8 (3.2-5.2) g/dL Globulin 3.5 (2-4) g/dL Albumin/Globulin Ratio 1.1 (1-3) Urine Color Urine Appearance Urine pH (5-9) Ur Specific [place] (1.010-1.030) Urine Protein (Negative) Urine Ketones (Negative) Urine Blood (Negative) Urine Nitrate (Negative) Urine Bilirubin (Negative) Urine Urobilinogen (Negative) Ur Leukocyte Esterase (Negative) Urine WBC (Auto) (Absent) Urine RBC (Auto) (Absent) Urine Bacteria (Absent) Urine Glucose (Negative) Urine Ascorbic Acid (Negative) Blood Type Antibody Screen 10/03/17 10/03/17 10/04/17 Range/Units 19:55 19:55 00:18 WBC (3.5-10.8) 10^3/ul RBC (4.0-5.4) 10^6/ul Hgb (12.0-16.0) g/dl Hct (35-47) % MCV (80-97) fL MCH (27-31) pg MCHC (31-36) g/dl RDW (10.5-15) % Plt Count (150-450) 10^3/ul MPV (7.4-10.4) um3 Neut % (Auto) (38-83) % Lymph % (Auto) (25-47) % [place] % (Auto) (0-7) % Eos % (Auto) (0-6) % Baso % (Auto) (0-2) % Absolute Neuts (auto) (1.5-7.7) 10^3/ul Absolute Lymphs (auto) (1.0-4.8) 10^3/ul Absolute Monos (auto) (0-0.8) 10^3/ul Absolute Eos (auto) (0-0.6) 10^3/ul Absolute Basos (auto) (0-0.2) 10^3/ul Absolute Nucleated RBC 10^3/ul Nucleated RBC % INR (Anticoag Therapy) (0.77-1.02) APTT (26.0-36.3) seconds Sodium (133-145) mmol/L Potassium (3.5-5.0) mmol/L Chloride (101-111) mmol/L Carbon Dioxide (22-32) mmol/L Anion Gap (2-11) mmol/L BUN (6-24) mg/dL Creatinine (0.51-0.95) mg/dL Est GFR ( Amer) (>60) Est GFR (Non-Af Amer) (>60) BUN/Creatinine Ratio (8-20) Glucose (70-100) mg/dL Lactic Acid 1.2 (0.5-2.0) mmol/L Calcium (8.6-10.3) mg/dL Total Bilirubin (0.2-1.0) mg/dL AST (13-39) U/L ALT (7-52) U/L Alkaline Phosphatase (34-104) U/L Troponin I (<0.04) ng/mL Total Protein (6.4-8.9) g/dL Albumin (3.2-5.2) g/dL Globulin (2-4) g/dL Albumin/Globulin Ratio (1-3) Urine Color Yellow Urine Appearance Clear Urine pH 7.0 (5-9) Ur Specific [place] 1.011 (1.010-1.030) Urine Protein 2+(100 mg/dl) H (Negative) Urine Ketones Negative (Negative) Urine Blood Negative (Negative) Urine Nitrate Negative (Negative) Urine Bilirubin Negative (Negative) Urine Urobilinogen Negative (Negative) Ur Leukocyte Esterase Negative (Negative) Urine WBC (Auto) Absent (Absent) Urine RBC (Auto) Absent (Absent) Urine Bacteria Absent (Absent) Urine Glucose Negative (Negative) Urine Ascorbic Acid * H (Negative) Blood Type B Negative Antibody Screen Negative ECG, personally reviewed: NSR rate 79, no ischemia, Q-waves in II/III/AVF, poor R-wave progression CXR, personally reviewed: IMPRESSION: LEFT HILAR ATELECTASIS. PACEMAKER LEADS ARE IN PLACE. CT brain WO, personally reviewed: IMPRESSION: No intracranial mass or hemorrhage is noted. XRY pelvis/L hip, personally reviewed: IMPRESSION: Intertrochanteric fracture of the left hip. XRY L femur, personally reviewed: IMPRESSION: Intertrochanteric fracture of the left hip. Remainder of the femur is intact with degenerative changes of the knee joint. Impression: 87F HX HTN presents with L displaced intertrochanteric hip FX s/p mechanical fall DIAGNOSIS & PLAN Primary L displaced intertrochanteric hip FX s/p mechanical fall : pain control : Thiago Mclean MD orthopedic surgery consulted by ED, will evaluate in AM : obtain an ECHO in AM for further risk stratification, if no significant abnormality she may proceed to surgery : revised cardiac risk index is 0.4% : supportive care : executive secretary social welfare consult for fdc Secondary HTN : continue lisinopril, carvedilol, amlodipine, & hydralazine hiatal hernia : no acute issues GERD : continue omeprazole depression/anxiety : continue lorazepam & sertraline Admission Rational: inpatient for surgical management of L hip FX DVTp: heparin SQ x1 in ED, then post-op as approved by orthopedics Code Status: full HCP: son
[2017-10-04 05:34] LABS: Hematocrit 34 % (35-47); Hemoglobin 11.2 g/dl (12.0-16.0)
[2017-10-04] MEDS ORDERED: Omeprazole CAP* 20 MG PO SCH (06:00)
[2017-10-04] MEDS: Lisinopril TAB* 10 MG PO SCH ×2 (08:34→09:21)
[2017-10-04] MEDS: hydrALAZINE TAB* 25 MG PO SCH ×4 (08:34→20:27)
[2017-10-04] MEDS: Carvedilol TAB* 6.25 MG PO SCH ×2 (08:34→20:26)
[2017-10-04] MEDS: Sertraline* 25 MG TAB PO SCH ×2 (08:34→09:21)
[2017-10-04] MEDS: Docusate CAP* 100 MG PO SCH ×2 (08:34→20:27)
--- NOTE | 2017-10-04 09:16 | PN ---
Hospitalist Progress Note Pt seen and examined. Left Hip Fracture after mechanical fall. HTN, Depression, Anxiety, GERD. Uses walker at baseline ECHO done this morning, EF 60-65%, moder pHTN, moderate AR no EKG changes from prior. one from Jun 2017 with EF 60-65%, RVSP 43, moderate pHTN, mild-mod AVR, mild- mod TVR nausea 6/10 pain. does not want to talk. difficulty swallowing pills. Patient cleared and medically optimized for surgery. RCRI 0.4%
[2017-10-04] MEDS ORDERED: Ondansetron INJ* 2 MG/ML VIAL IV ONE (09:18)
--- NOTE | 2017-10-04 09:42 | ECHO ---
Patient: GINETTE CARR Rec#: [id number] : 1930 Date: 10/04/2017 Age: 87y Height: 149.86 cm / 59.0 in Weight: 50.8 kg / 112.0 lbs Sex: F BSA: 1.44 Room#: 334 Admit Date#: 10/03/2017 Type: Inpatient Referring: Rajinder Urena MD Reading: Buddy Alves DO Special Education Professional: Belkys Ramirez RDCS,RDMS CC: Jake Mitchell DO CC: Edith Reilly MD Transthoracic Echocardiogram Indication: Abnormal EKG BP: 115/60 HR: 78 Rhythm: NSR Findings History: HTN, GERD, SSS, pacemaker Technical Comments: The study quality is good. The study was technically limited due to the patient's inability to lay in the left lateral decubitus position. Left Ventricle: The left ventricular chamber size is decreased. Moderate concentric left ventricular hypertrophy is observed. There is normal left ventricular systolic function. The estimated ejection fraction is 60-65%. Unable to estimate diastolic function due to significant mitral annulus calcification. Left Atrium: The left atrium is mildly dilated. Right Ventricle: The right ventricular chamber size and systolic function are within normal limits. A pacemaker wire is visualized in the right ventricle. Right Atrium: The right atrial cavity size is normal. Aortic Valve: The aortic valve is trileaflet. Systolic excursion of the aortic valve is normal. There is moderate aortic regurgitation. There is no evidence of aortic stenosis. Mitral Valve: Moderate mitral annular calcification present. The mitral valve leaflets are mildly thickened. There is a trace of mitral regurgitation. Tricuspid Valve: The tricuspid valve leaflets are normal. There is mild tricuspid regurgitation. There is evidence of moderate pulmonary hypertension. Pulmonic Valve: The pulmonic valve appears normal. There is trace to mild pulmonic regurgitation. Pericardium: There is no significant pericardial effusion. Aorta: The aortic root appears normal. There is no dilatation of the aortic arch. Pulmonary Artery: The main pulmonary artery is not well visualized. Venous: The inferior vena cava appears normal in size. There is a greater than 50% respiratory change in the inferior vena cava dimension. Conclusions The left ventricular chamber size is decreased. Moderate concentric left ventricular hypertrophy is observed. There is normal left ventricular systolic function. The estimated ejection fraction is 60-65%. The left atrium is mildly dilated. The right ventricular chamber size and systolic function are within normal limits. A pacemaker wire is visualized in the right ventricle. There is moderate aortic regurgitation. There is evidence of moderate pulmonary hypertension. Compared to prior study from 06/2017, no clinically significant changes noted Measurements Name Value Normal Range RVIDd (AP) 2D 2.4 cm (0.9 - 2.6) RAd ISD 4CH 4.5 cm (3.4 - 4.9) RA (A4C)W 4.7 cm (2.9 - 4.6) IVSd (2D) 1.5 cm (0.6 - 1) LVPWd (2D) 1.6 cm (0.6 - 1) LVIDd (2D) 2.9 cm (3.6 - 5.4) LVIDs (2D) 2 cm - LV FS (2D) 31 % (25 - 45) Aortic Annulus 2.1 cm (1.4 - 2.6) Ao root diameter (2D) 2.8 cm (2.1 - 3.5) Ascending Ao 3.1 cm (2.1 - 3.4) Aortic arch 3.2 cm (1.8 - 3.4) LA dimension (AP) 2D 3.6 cm (2.3 - 3.8) LAd ISD 4CH 6.2 cm (2.9 - 5.3) LA ISD 4CH W 3.6 cm (2.5 - 4.5) Name Value Normal Range LA ESV SP 4CH (A/L) 39.3 ml - LA ESV SP 2CH (A/L) 41.5 ml - LA ESV BP (A/L) 42.86 ml - LA ESV BP (A/L) index 30 ml/m2 - LA ESV SP 4CH (MOD) 36.18 ml - LA ESV SP 2CH (MOD) 40.08 ml - Name Value Normal Range MV E-wave Vmax 0.3 m/sec - MV deceleration time 152 msec - MV A-wave Vmax 1.3 m/sec - MV E:A ratio 0.2 ratio - LV septal e' Vmax 0.04 m/sec - LV lateral e' Vmax 0.03 m/sec - LV E:e' septal ratio 8 ratio - LV E:e' lateral ratio 10 ratio - Name Value Normal Range AV Vmax 1.5 m/sec - AV VTI 27 cm - AV peak gradient 9 mmHg - AV mean gradient 4.5 mmHg - LVOT Vmax 1 m/sec - LVOT VTI 18.1 cm - LVOT peak gradient 4 mmHg - LVOT mean gradient 2.1 mmHg - AR PHT 416 msec - AR peak gradient 65.82 mmHg - GERALDO Vmax 0.4 m/sec - Name Value Normal Range MV Vmax 1.5 m/sec - MV VTI 28 cm - MV peak gradient 9 mmHg - MV mean gradient 2.6 mmHg - MV PHT 35 msec - MVA (PHT) 6.3 cm2 - Name Value Normal Range TR Vmax 3.2 m/sec - TR peak gradient 41 mmHg - RAP 8 mmHg - RVSP 49 mmHg - IVC diameter 1.5 cm - Name Value Normal Range PV Vmax 0.7 m/sec - PV peak gradient 2 mmHg -
[2017-10-04] MEDS ORDERED: ceFAZolin 2 GM in 100 MLS NS (*) BAG IVPB ONE (11:58)
[2017-10-04] MEDS ORDERED: Midazolam* 1 MG/ML 2 ML VIAL (2 MG) ONE (12:10)
[2017-10-04] MEDS ORDERED: fentaNYL* 50 MCG/ML 2 ML VIAL (100 MCG VIAL) ONE (12:10)
[2017-10-04] MEDS ORDERED: Bupivacaine 0.5% SDV PF* 10-30ML VIAL ONE ×2 (12:11→13:14)
[2017-10-04] MEDS ORDERED: Naloxone* 0.4 MG/ML 1 ML VIAL IV PRN (13:07)
[2017-10-04] MEDS ORDERED: oxyCODONE/Acetamin 5/325 MG* TAB PO PRN (13:07)
[2017-10-04] MEDS ORDERED: fentaNYL* 50 MCG/ML 2 ML VIAL (100 MCG VIAL) IV PRN (13:07)
--- NOTE | 2017-10-04 14:38 | RAD ---
CPT II Codes: 6045F INDICATION: Traumatic left hip fracture Fluoroscopic services provided for referring physician. 30.1 seconds of fluoroscopy time was used. This placement of a dynamic compression screw into the left hip. IMPRESSION: Status post internal fixation left hip fracture.
[2017-10-04] MEDS: Omeprazole CAP* 20 MG PO SCH (18:15)
[2017-10-04] MEDS: LORazepam TAB(*) 0.5 MG PO SCH (18:15)
[2017-10-04] MEDS ORDERED: Oxycodone IR 10 MG(NF) TAB PO PRN (19:16)
[2017-10-04] MEDS: Acetaminophen TAB* 325 MG PO PRN (20:27)
[2017-10-04] MEDS: ceFAZolin 1 GM in Dextrose (*) 1 GM/50 ML BAG IVPB SCH (20:28)
[2017-10-04] MEDS ORDERED: amLODIPine TAB* 5 MG PO SCH (21:00)
[2017-10-04] MEDS ORDERED: Heparin VIAL(*) 5000 UNITS/ML VIAL (FIVE THOUSAND) SUBCUT ONE (22:50)
[2017-10-04] MEDS ORDERED: NS 0.9% 500 ML* 500 ML IV ONE (23:00)
[2017-10-05] MEDS: NS 0.9% 1000 ML* 1,000 ML IV SCH ×3 (00:25→23:47)
--- NOTE | 2017-10-05 01:52 | OP ---
DATE OF OPERATION: 10/04/17 - ROOM #334 DATE OF : [birth year] SURGEON: Dr. Mclean. TORCH SHEARER: AKSHAT Mcdonald ANESTHESIA: Spinal. PRE-OP DIAGNOSIS: Intertrochanteric fracture of the left hip. POST-OP DIAGNOSIS: Intertrochanteric fracture of the left hip. OPERATIVE PROCEDURE: Left hip open reduction and internal fixation. ESTIMATED BLOOD LOSS: About 50 mL. INDICATIONS FOR PROCEDURE: Ynes is an 87-year-old female who fell at home injuring her left hip. X-ray shows a comminuted fracture, displaced, of the intertrochanteric area of the left hip. She presents for ORIF of the left hip. DESCRIPTION OF PROCEDURE: The patient was brought to the operating room and was given a spinal anesthetic and placed on the fracture table with the left leg in traction and the right leg in stirrups. Preop x-rays showed an adequate reduction in the AP and lateral view. Skin of her left hip and thigh area was prepped and draped in the usual sterile fashion. A lateral longitudinal incision was made and we dissected sharply through the fascia giles and vastus lateralis. The muscle was elevated off the lateral aspect of the femur and then a guidewire from the DHS set was driven through the lateral cortex and into the center of the femoral head on the AP and lateral view. We measured for a 100 mm lag screw and then drilled and reamed over the guidewire, tapped over the guidewire and placed the lag screw. A 4-hole 135 degree side plate was secured with 4 bicortical screws. The position of the hardware and fracture fragments were checked on the C-arm in the AP and lateral views and found to be satisfactory. Wound was copiously irrigated with saline. Hemovac drain was placed. The vastus lateralis was repaired in running fashion with #1 Vicryl suture. Fascia giles was closed in interrupted fashion with #1 Vicryl. Subcutaneous tissue was closed with 2-0 Polysorb and the skin with skin santiago. The wound was dressed with Xeroform, 4x4, and ABD. The patient tolerated the procedure well and was brought to the recovery room in good condition. [id number]/[facility] #: [id number] [facility]
[2017-10-05] MEDS: oxyCODONE TAB* 5 MG TAB PO PRN ×4 (02:52→23:37)
[2017-10-05] MEDS: ceFAZolin 1 GM in Dextrose (*) 1 GM/50 ML BAG IVPB SCH ×2 (03:49→11:43)
[2017-10-05] MEDS: Acetaminophen TAB* 325 MG PO PRN (05:07)
[2017-10-05] MEDS: Lisinopril TAB* 10 MG PO SCH (07:53)
[2017-10-05] MEDS: Carvedilol TAB* 6.25 MG PO SCH ×2 (07:55→20:42)
[2017-10-05] MEDS: Sertraline* 25 MG TAB PO SCH (07:55)
[2017-10-05] MEDS: hydrALAZINE TAB* 25 MG PO SCH (07:55)
[2017-10-05] MEDS: Docusate CAP* 100 MG PO SCH ×2 (07:55→20:41)
--- NOTE | 2017-10-05 08:42 | PN ---
Subjective Date of Service: 10/05/17 Interval History: s/p ORIF left hip. 8/10 pain currently, getting oxycodone 10 now. no nausea. Slept well. low UOP overnight. given 500cc bolus then 75cc/hr ----- labs back later. Hgb to 7.2 from 11.2, repeat in afternoon stable. BP fell and 4 antihypertensives stopped, bolused 1L. Sat 99% on 1L NC Objective Active Medications: Acetaminophen (Tylenol Tab*) 650 mg PO Q6H PRN PRN Reason: FEVER/PAIN Last Admin: 10/05/17 05:07 Dose: 650 mg Amlodipine Besylate (Norvasc Tab*) 10 mg PO BEDTIME [facility] Last Admin: 10/04/17 20:27 Dose: 10 mg Carvedilol (Coreg Tab*) 12.5 mg PO BID [facility] Last Admin: 10/05/17 07:55 Dose: 12.5 mg Docusate Sodium (Colace Cap*) 200 mg PO BID [facility] Last Admin: 10/05/17 07:55 Dose: 200 mg Enoxaparin Sodium (Lovenox(*)) 30 mg SUBCUT DAILY@1200 [facility] Fentanyl Citrate (Fentanyl*) 25 mcg IV Q5M PRN PRN Reason: PAIN - MODERATE Hydralazine HCl (Apresoline Tab*) 25 mg PO TID [facility] Last Admin: 10/05/17 07:55 Dose: 25 mg Hydromorphone HCl (Dilaudid Injic*) 0.5 mg IV Q2H PRN PRN Reason: PAIN Last Admin: 10/04/17 08:32 Dose: 0.5 mg Sodium Chloride (Ns 0.9% 1000 Ml*) 1,000 mls @ 75 mls/hr IV PER RATE [facility] Last Admin: 10/05/17 07:24 Dose: 75 mls/hr Cefazolin Sodium/Dextrose (Kefzol 1 Gm In Dextrose Duplex (*)) 1 gm in 50 mls @ 200 mls/hr IVPB Q8H [facility] Stop: 10/05/17 12:14 Last Admin: 10/05/17 03:49 Dose: 200 mls/hr Lisinopril (Prinivil Tab*) 40 mg PO DAILY [facility] Last Admin: 10/05/17 07:53 Dose: 40 mg Lorazepam (Ativan Tab(*)) 0.25 mg PO QPM [facility] Last Admin: 10/04/17 18:15 Dose: 0.25 mg Melatonin (Melatonin (Nf)) 3 mg PO BEDTIME PRN; Protocol PRN Reason: Sleep Last Admin: 10/04/17 01:39 Dose: 3 mg Omeprazole (Prilosec Cap*) 20 mg PO QPM [facility] Last Admin: 10/04/17 18:15 Dose: 20 mg Ondansetron HCl (Zofran Inj*) 4 mg IV Q6H PRN PRN Reason: NAUSEA Last Admin: 10/04/17 06:43 Dose: 4 mg Oxycodone HCl (Roxycodone Tab*) 10 mg PO Q4H PRN PRN Reason: PAIN Last Admin: 10/05/17 07:52 Dose: 10 mg Polyethylene Glycol/Electrolytes (Miralax*) 17 gm PO DAILY [facility] Senna (Senokot Tab*) 1 tab PO DAILY [facility] Sertraline HCl (Zoloft*) 25 mg PO QAM [facility] Last Admin: 10/05/17 07:55 Dose: 25 mg Vital Signs - 8 hr 10/05/17 10/05/17 10/05/17 02:49 02:52 05:10 Temperature 98.6 F Pulse Rate 70 Respiratory 18 18 20 Rate Blood Pressure 116/49 (mmHg) O2 Sat by Pulse 100 Oximetry 10/05/17 10/05/17 07:16 07:52 Temperature 98.5 F Pulse Rate 77 Respiratory 18 18 Rate Blood Pressure 115/53 (mmHg) O2 Sat by Pulse 97 Oximetry Oxygen Devices in Use Now: Nasal Cannula Appearance: NAD Eyes: No Scleral Icterus, PERRLA Respiratory: Symmetrical Chest Expansion and Respiratory Effort, Clear to Auscultation, - - slight inspiratory wheeze, likely upper airway. Cardiovascular: NL Sounds; No Murmurs; No JVD, RRR Abdominal: NL Sounds; No Tenderness; No Distention, No Hepatosplenomegaly Lymphatic: No Cervical Adenopathy Extremities: No Edema, No Clubbing, Cyanosis, - - left lateral thigh gauze w/o strikethrough Skin: No Rash or Ulcers Neurological: Alert and Oriented x 3 Nutrition: Taking PO's Result Diagrams: 10/05/17 15:35 10/05/17 09:23 Microbiology and Other Data: Microbiology 10/04/17 18:40 Nasal Screen MRSA (PCR)(SHE) - Final Nasal Mrsa Not Detected Assess/Plan/Problems-Billing Assessment: 87 yo female PMH HTN, moderate pHTN, moderate aortic valve regurgitation, GERD, depression p/w mechanical fall and left intertrochanteric femur fx s/p ORIF. - Patient Problems (1) Fracture, intertrochanteric, left femur Current Visit: Yes Status: Acute Code(s): S72.142A - DISPLACED INTERTROCHANTERIC FRACTURE OF LEFT FEMUR, INIT SNOMED Code(s): 723582132 Comment: s/p ORIF with Dr. Mclean 10/04 pain control, currently oxycodone 10mg q6. zofran prn miralax prn, senna and colace standing. PT. uses walker at [facility]. (2) Hypertension Current Visit: No Status: Acute Priority: Medium Code(s): I10 - ESSENTIAL (PRIMARY) HYPERTENSION SNOMED Code(s): 51638183 Comment: blood pressures fell so Hold home lisinopril 40mg, coreg 12.5mg BID , amlodipine 10mg qpm, hydralazine 10mg TID (3) GERD (gastroesophageal reflux disease) Current Visit: No Status: Acute Priority: Medium Code(s): K21.9 - GASTRO- ESOPHAGEAL REFLUX DISEASE WITHOUT ESOPHAGITIS SNOMED Code(s): 972289677 Comment: Continue prilosec 20mg daily. (4) Hyponatremia Current Visit: No Status: Acute Code(s): E87.1 - HYPO-OSMOLALITY AND HYPONATREMIA SNOMED Code(s): 53386514 Comment: Na 131 on admission, BMP daily -> 130. h/o SIADH add uric acid. [facility], [facility] are send outs, pt likely discharged before would be back. (5) Depression Current Visit: No Status: Acute Priority: Medium Code(s): F32.9 - MAJOR DEPRESSIVE DISORDER, SINGLE EPISODE, UNSPECIFIED SNOMED Code(s): 07176756 Comment: continue zoloft 25mg daily. (6) Anemia Current Visit: Yes Status: Acute Code(s): D64.9 - ANEMIA, UNSPECIFIED SNOMED Code(s): 904708305 Comment: post operative blood loss. monitor cbc q12. Status and Disposition: medicine inpatient. PMRU and [facility] referrals out.
--- NOTE | 2017-10-05 09:14 | PN ---
Progress Note - Progress Note Date of Service: 10/05/17 SOAP: Subjective: []Patient seen OOB in chair after transfer by physical therapy. Her pain level is 7/10 localized to the left hip, worse after movement. She confirms feeling SOB, she has oxygen at 1L, her nurse and the hospitalist service are aware. She denies any chest pain or calf pain. Denies numbness of LLE. Objective: [] Vital Signs Temp 98.5 F 10/05/17 07:16 Pulse 77 10/05/17 07:16 Resp 18 10/05/17 07:52 BP 115/53 10/05/17 07:16 Pulse Ox 97 10/05/17 07:16 Intake & Output 10/04/17 10/05/17 10/05/17 18:59 06:59 18:59 Intake Total 1000 1635 Output Total 275 225 Balance 725 1410 Intake: IV Fluids 1000 890 LR 1000 NS (0.9%) 890 IVPB 65 ABX - CEFAZOLIN 65 Oral 680 Output: Hemovac Amount #1 0 Urine 225 Ng 75 Estimated Blood Loss 200 Other: # Bowel Movements 0 Laboratory Last Values WBC 11.7 10^3/ul (3.5-10.8) H 10/03/17 19:55 RBC 4.27 10^6/ul (4.0-5.4) 10/03/17 19:55 Hgb 11.2 g/dl (12.0-16.0) L 10/04/17 04:55 Hct 34 % (35-47) L 10/04/17 04:55 MCV 88 fL (80-97) 10/03/17 19:55 MCH 29 pg (27-31) 10/03/17 19:55 MCHC 33 g/dl (31-36) 10/03/17 19:55 RDW 15 % (10.5-15) 10/03/17 19:55 Plt Count 243 10^3/ul (150-450) 10/03/17 19:55 MPV 8 um3 (7.4-10.4) 10/03/17 19:55 Neut % (Auto) 88.2 % (38-83) H 10/03/17 19:55 Lymph % (Auto) 5.7 % (25-47) L 10/03/17 19:55 [place] % (Auto) 5.0 % (0-7) 10/03/17 19:55 Eos % (Auto) 0.8 % (0-6) 10/03/17 19:55 Baso % (Auto) 0.3 % (0-2) 10/03/17 19:55 Absolute Neuts (auto) 10.3 10^3/ul (1.5-7.7) H 10/03/17 19:55 Absolute Lymphs (auto) 0.7 10^3/ul (1.0-4.8) L 10/03/17 19:55 Absolute Monos (auto) 0.6 10^3/ul (0-0.8) 10/03/17 19:55 Absolute Eos (auto) 0.1 10^3/ul (0-0.6) 10/03/17 19:55 Absolute Basos (auto) 0 10^3/ul (0-0.2) 10/03/17 19:55 Absolute Nucleated RBC 0 10^3/ul 10/03/17 19:55 Nucleated RBC % 0 10/03/17 19:55 INR (Anticoag Therapy) 0.91 (0.77-1.02) 10/03/17 19:55 APTT 36.0 seconds (26.0-36.3) 10/03/17 19:55 Sodium 131 mmol/L (133-145) L 10/03/17 19:55 Potassium 3.6 mmol/L (3.5-5.0) 10/03/17 19:55 Chloride 99 mmol/L (101-111) L 10/03/17 19:55 Carbon Dioxide 26 mmol/L (22-32) 10/03/17 19:55 Anion Gap 6 mmol/L (2-11) 10/03/17 19:55 BUN 16 mg/dL (6-24) 10/03/17 19:55 Creatinine 0.78 mg/dL (0.51-0.95) 10/03/17 19:55 Est GFR ( Amer) 89.6 (>60) 10/03/17 19:55 Est GFR (Non-Af Amer) 69.7 (>60) 10/03/17 19:55 BUN/Creatinine Ratio 20.5 (8-20) H 10/03/17 19:55 Glucose 135 mg/dL (70-100) H 10/03/17 19:55 Lactic Acid 1.2 mmol/L (0.5-2.0) 10/03/17 19:55 Calcium 9.3 mg/dL (8.6-10.3) 10/03/17 19:55 Total Bilirubin 0.40 mg/dL (0.2-1.0) 10/03/17 19:55 AST 17 U/L (13-39) 10/03/17 19:55 ALT 10 U/L (7-52) 10/03/17 19:55 Alkaline Phosphatase 72 U/L (34-104) 10/03/17 19:55 Troponin I 0.00 ng/mL (<0.04) 10/03/17 19:55 Total Protein 7.3 g/dL (6.4-8.9) 10/03/17 19:55 Albumin 3.8 g/dL (3.2-5.2) 10/03/17 19:55 Globulin 3.5 g/dL (2-4) 10/03/17 19:55 Albumin/Globulin Ratio 1.1 (1-3) 10/03/17 19:55 Urine Color Yellow 10/04/17 00:18 Urine Appearance Clear 10/04/17 00:18 Urine pH 7.0 (5-9) 10/04/17 00:18 Ur Specific [place] 1.011 (1.010-1.030) 10/04/17 00:18 Urine Protein 2+(100 mg/dl) (Negative) H 10/04/17 00:18 Urine Ketones Negative (Negative) 10/04/17 00:18 Urine Blood Negative (Negative) 10/04/17 00:18 Urine Nitrate Negative (Negative) 10/04/17 00:18 Urine Bilirubin Negative (Negative) 10/04/17 00:18 Urine Urobilinogen Negative (Negative) 10/04/17 00:18 Ur Leukocyte Esterase Negative (Negative) 10/04/17 00:18 Urine WBC (Auto) Absent (Absent) 10/04/17 00:18 Urine RBC (Auto) Absent (Absent) 10/04/17 00:18 Urine Bacteria Absent (Absent) 10/04/17 00:18 Urine Glucose Negative (Negative) 10/04/17 00:18 Urine Ascorbic Acid * (Negative) H 10/04/17 00:18 Blood Type B Negative 10/03/17 19:55 Antibody Screen Negative 10/03/17 19:55 General: Well appearing, NAD. O2 sat read at 100% on 1 L oxygen LLE: Drain pulled without complication and with tip intact. Dressing CDI without surrounding erythema or edema. DF/PF intact. Sensation intact distally. 2+ DP pulse. BL LE: calves supple and nontender without erythema, edema or palpable cords. Assessment: []SP ORIF left hip Plan: []WBAT PT/OT Awaiting today's lab values First dressing change tomorrow Lovenox 30 mg sq qd x 3 weeks F/U in [address] Mclean [facility] referral in
[2017-10-05 09:31] LABS: ABS Basophils 0.1 10^3/ul (0-0.2); ABS Eosinophils 0.1 10^3/ul (0-0.6); ABS Lymphocytes 0.6 10^3/ul (1.0-4.8); ABS Monocytes 1.1 10^3/ul (0-0.8); ABS Neutrophils 10.5 10^3/ul (1.5-7.7); ABS Nucleated RBC 0 10^3/ul; Eosinophil % 0.6 % (0-6); Hematocrit 21 % (35-47); Hemoglobin 7.2 g/dl (12.0-16.0); Lymphocyte % 5.1 % (25-47); Mean Corpuscular HGB Conc 34 g/dl (31-36); Mean Corpuscular Hemoglobin 30 pg (27-31); Mean Corpuscular Volume 89 fL (80-97); Mean Platelet Volume 8 um3 (7.4-10.4); Nucleated Red Blood Cells % 0; Platelet Count 150 10^3/ul (150-450); Red Blood Count 2.42 10^6/ul (4.0-5.4); Red Cell Distribution Width 15 % (10.5-15); White Blood Count 12.4 10^3/ul (3.5-10.8)
[2017-10-05 09:47] LABS: EGFR Non-African American 54.8 (>60)
[2017-10-05] MEDS: Senna TAB PO SCH (10:11)
[2017-10-05] MEDS: Polyethylene Glycol 3350* 17 GM PACKET PO SCH (10:11)
[2017-10-05] MEDS ORDERED: Magnesium Sulfate IV* 3 GM in NS 0.9% 100 ML* 100 ML IVPB ONE (11:12)
[2017-10-05] MEDS ORDERED: Enoxaparin(*) 30 MG/0.3 ML SYR SUBCUT SCH (12:00)
[2017-10-05] MEDS ORDERED: Magnesium Sulfate 2 GM IV IVPB ONE (12:00)
[2017-10-05] MEDS ORDERED: Magnesium Sulfate 1 GM IV* 1 GM/100 ML BAG IV ONE (13:00)
[2017-10-05] MEDS ORDERED: NS 0.9% 1000 ML* 1,000 ML IV ONE (13:37)
[2017-10-05 15:47] LABS: ABS Basophils 0 10^3/ul (0-0.2); ABS Eosinophils 0 10^3/ul (0-0.6); ABS Lymphocytes 0.5 10^3/ul (1.0-4.8); ABS Monocytes 1.1 10^3/ul (0-0.8); ABS Neutrophils 11.7 10^3/ul (1.5-7.7); ABS Nucleated RBC 0 10^3/ul; Eosinophil % 0.3 % (0-6); Hematocrit 21 % (35-47); Hemoglobin 7.1 g/dl (12.0-16.0); Lymphocyte % 3.8 % (25-47); Mean Corpuscular HGB Conc 33 g/dl (31-36); Mean Corpuscular Hemoglobin 30 pg (27-31); Mean Corpuscular Volume 90 fL (80-97); Mean Platelet Volume 8 um3 (7.4-10.4); Nucleated Red Blood Cells % 0; Platelet Count 142 10^3/ul (150-450); Red Blood Count 2.38 10^6/ul (4.0-5.4); Red Cell Distribution Width 15 % (10.5-15); White Blood Count 13.3 10^3/ul (3.5-10.8)
[2017-10-05] MEDS ORDERED: Albuterol/Ipratropium NEB.SOL* Albuterol 2.5 MG/Ipratropium 0.5 MG 3 ML INH ONE (15:51)
[2017-10-05] MEDS: Albuterol/Ipratropium NEB.SOL* Albuterol 2.5 MG/Ipratropium 0.5 MG 3 ML ONE ×2 (16:09→16:10)
[2017-10-05] MEDS: LORazepam TAB(*) 0.5 MG PO SCH (17:38)
[2017-10-05] MEDS: Omeprazole CAP* 20 MG PO SCH (17:39)
[2017-10-06] MEDS: Acetaminophen TAB* 325 MG PO PRN (03:36)
--- NOTE | 2017-10-06 07:54 | RAD ---
HISTORY: Fever COMPARISONS: October 03, 2017 VIEWS: 1: frontal portable view of the chest at 7:20 AM FINDINGS: LINES AND TUBES: A left-sided pacemaker is noted. CARDIOMEDIASTINAL SILHOUETTE: The cardiomediastinal silhouette is normal for portable technique. PLEURA: The costophrenic angles are sharp. No pleural abnormalities are noted. LUNG PARENCHYMA: There is patchy alveolar opacification of left lung base. ABDOMEN: There is a probable hiatal hernia. BONES AND SOFT TISSUES: Degenerative changes are noted of the shoulders. IMPRESSION: 1. LEFT BASILAR ATELECTASIS VERSUS EARLY CONSOLIDATION. RECOMMEND FOLLOW-UP UNTIL RESOLUTION TO EXCLUDE UNDERLYING PULMONARY PARENCHYMAL PATHOLOGY. 2. PROBABLE HIATAL HERNIA
[2017-10-06] MEDS ORDERED: Artificial Tears* 15 ML BTL BOTH EYES PRN (08:18)
--- NOTE | 2017-10-06 08:35 | PN ---
Progress Note - Progress Note Date of Service: 10/06/17 SOAP: Subjective: []Patient seen at bedside. She reports Objective: [] Vital Signs Temp 99.3 F 10/06/17 07:40 Pulse 74 10/06/17 07:40 Resp 18 10/06/17 08:00 BP 121/49 10/06/17 07:40 Pulse Ox 99 10/06/17 08:00 Intake & Output 10/05/17 10/06/17 10/06/17 18:59 06:59 18:59 Intake Total 1770 525 Output Total 100 420 Balance 1670 105 Intake: IV Fluids 1470 ABX - CEFAZOLIN 55 Magnesium 55 NS (0.9%) 1360 Oral 300 525 Output: Ng 100 420 Laboratory Last Values WBC 7.7 10^3/ul (3.5-10.8) 10/06/17 09:01 RBC 1.90 10^6/ul (4.0-5.4) L 10/06/17 09:01 Hgb 5.8 g/dl (12.0-16.0) L* 10/06/17 09:01 Hct 17 % (35-47) L 10/06/17 09:01 MCV 89 fL (80-97) 10/06/17 09:01 MCH 30 pg (27-31) 10/06/17 09:01 MCHC 34 g/dl (31-36) 10/06/17 09:01 RDW 15 % (10.5-15) 10/06/17 09:01 Plt Count 111 10^3/ul (150-450) L 10/06/17 09:01 MPV 8 um3 (7.4-10.4) 10/06/17 09:01 Neut % (Auto) 87.4 % (38-83) H 10/05/17 15:35 Lymph % (Auto) 3.8 % (25-47) L 10/05/17 15:35 [place] % (Auto) 8.3 % (0-7) H 10/05/17 15:35 Eos % (Auto) 0.3 % (0-6) 10/05/17 15:35 Baso % (Auto) 0.2 % (0-2) 10/05/17 15:35 Absolute Neuts (auto) 11.7 10^3/ul (1.5-7.7) H 10/05/17 15:35 Absolute Lymphs (auto) 0.5 10^3/ul (1.0-4.8) L 10/05/17 15:35 Absolute Monos (auto) 1.1 10^3/ul (0-0.8) H 10/05/17 15:35 Absolute Eos (auto) 0 10^3/ul (0-0.6) 10/05/17 15:35 Absolute Basos (auto) 0 10^3/ul (0-0.2) 10/05/17 15:35 Absolute Nucleated RBC 0 10^3/ul 10/05/17 15:35 Nucleated RBC % 0 10/05/17 15:35 INR (Anticoag Therapy) 0.91 (0.77-1.02) 10/03/17 19:55 APTT 36.0 seconds (26.0-36.3) 10/03/17 19:55 Sodium 131 mmol/L (133-145) L 10/06/17 09:01 Potassium 3.8 mmol/L (3.5-5.0) 10/06/17 09:01 Chloride 104 mmol/L (101-111) 10/06/17 09:01 Carbon Dioxide 23 mmol/L (22-32) 10/06/17 09:01 Anion Gap 4 mmol/L (2-11) 10/06/17 09:01 BUN 22 mg/dL (6-24) 10/06/17 09:01 Creatinine 0.75 mg/dL (0.51-0.95) 10/06/17 09:01 Est GFR ( Amer) 93.8 (>60) 10/06/17 09:01 Est GFR (Non-Af Amer) 72.9 (>60) 10/06/17 09:01 BUN/Creatinine Ratio 29.3 (8-20) H 10/06/17 09:01 Glucose 99 mg/dL (70-100) 10/06/17 09:01 Lactic Acid 1.2 mmol/L (0.5-2.0) 10/03/17 19:55 Uric Acid 3.9 mg/dL (2.3-6.6) 10/06/17 04:41 Calcium 8.2 mg/dL (8.6-10.3) L 10/06/17 09:01 Magnesium 2.1 mg/dL (1.9-2.7) 10/06/17 09:01 Total Bilirubin 0.50 mg/dL (0.2-1.0) 10/06/17 09:01 AST 30 U/L (13-39) 10/06/17 09:01 ALT 9 U/L (7-52) 10/06/17 09:01 Alkaline Phosphatase 41 U/L (34-104) 10/06/17 09:01 Troponin I 0.00 ng/mL (<0.04) 10/03/17 19:55 Total Protein 4.8 g/dL (6.4-8.9) L 10/06/17 09:01 Albumin 2.4 g/dL (3.2-5.2) L 10/06/17 09:01 Globulin 2.4 g/dL (2-4) 10/06/17 09:01 Albumin/Globulin Ratio 1.0 (1-3) 10/06/17 09:01 Urine Color Yellow 10/04/17 00:18 Urine Appearance Clear 10/04/17 00:18 Urine pH 7.0 (5-9) 10/04/17 00:18 Ur Specific [place] 1.011 (1.010-1.030) 10/04/17 00:18 Urine Protein 2+(100 mg/dl) (Negative) H 10/04/17 00:18 Urine Ketones Negative (Negative) 10/04/17 00:18 Urine Blood Negative (Negative) 10/04/17 00:18 Urine Nitrate Negative (Negative) 10/04/17 00:18 Urine Bilirubin Negative (Negative) 10/04/17 00:18 Urine Urobilinogen Negative (Negative) 10/04/17 00:18 Ur Leukocyte Esterase Negative (Negative) 10/04/17 00:18 Urine WBC (Auto) Absent (Absent) 10/04/17 00:18 Urine RBC (Auto) Absent (Absent) 10/04/17 00:18 Urine Bacteria Absent (Absent) 10/04/17 00:18 Urine Glucose Negative (Negative) 10/04/17 00:18 Urine Ascorbic Acid * (Negative) H 10/04/17 00:18 Blood Type B Negative 10/03/17 19:55 Antibody Screen Negative 10/03/17 19:55 Crossmatch See Detail 10/03/17 19:55 General: Well appearing, NAD. Carries on appropriate conversation. LLE: Dressing changed, incision CDI without surrounding erythema. Thigh is soft and supple without erythema. DF/PF intact. Sensation intact distally. 2+ DP pulse. BL LE: Calves supple and nontender without erythema, edema or palpable cords. Assessment: []S/P ORIF left hip Acute bloodloss anemia Plan: [] WBAT PT/OT HGB 5.8, two units PRBC ordered. CBC Q 12 per hospitalist service Lovenox 30 mg sq qd x 3 weeks intended, monitor H&H F/U in [address] Mclean [facility] referral in
[2017-10-06] MEDS ORDERED: Carvedilol TAB* 3.125 MG PO SCH (09:00)
[2017-10-06] MEDS: Sertraline* 25 MG TAB PO SCH (09:22)
[2017-10-06] MEDS: Polyethylene Glycol 3350* 17 GM PACKET PO SCH (09:22)
[2017-10-06] MEDS: Senna TAB PO SCH (09:22)
[2017-10-06] MEDS: Docusate CAP* 100 MG PO SCH ×2 (09:22→20:13)
[2017-10-06 09:35] LABS: Hematocrit 17 % (35-47); Hemoglobin 5.8 g/dl (12.0-16.0); Mean Corpuscular HGB Conc 34 g/dl (31-36); Mean Corpuscular Hemoglobin 30 pg (27-31); Mean Corpuscular Volume 89 fL (80-97); Mean Platelet Volume 8 um3 (7.4-10.4); Platelet Count 111 10^3/ul (150-450); Red Cell Distribution Width 15 % (10.5-15); White Blood Count 7.7 10^3/ul (3.5-10.8)
[2017-10-06 09:44] LABS: EGFR Non-African American 72.9 (>60)
[2017-10-06 10:11] LABS: ABS Basophils 0 10^3/ul (0-0.2); ABS Eosinophils 0.1 10^3/ul (0-0.6); ABS Lymphocytes 0.5 10^3/ul (1.0-4.8); ABS Monocytes 0.8 10^3/ul (0-0.8); ABS Neutrophils 6.4 10^3/ul (1.5-7.7); ABS Nucleated RBC 0 10^3/ul; Eosinophil % 0.8 % (0-6); Lymphocyte % 5.9 % (25-47); Nucleated Red Blood Cells % 0
[2017-10-06 12:09] LABS: INR 0.9 (0.77-1.02)
--- NOTE | 2017-10-06 12:40 | PN ---
Subjective Date of Service: 10/06/17 Interval History: Hgb down to 5.8 from 7.1. Ordered 2u prbc by Ortho Tmax 101.1 3am. UOP 520 BP improved 1L NC. CXR with atlectasis vs early consolidation. Objective Active Medications: Acetaminophen (Tylenol Tab*) 650 mg PO Q6H PRN PRN Reason: FEVER/PAIN Last Admin: 10/06/17 03:36 Dose: 650 mg Carvedilol (Coreg Tab*) 3.125 mg PO BID [facility] Last Admin: 10/06/17 09:22 Dose: 3.125 mg Docusate Sodium (Colace Cap*) 200 mg PO BID [facility] Last Admin: 10/06/17 09:22 Dose: 200 mg Fentanyl Citrate (Fentanyl*) 25 mcg IV Q5M PRN PRN Reason: PAIN - MODERATE Hydromorphone HCl (Dilaudid Injic*) 0.5 mg IV Q2H PRN PRN Reason: PAIN Last Admin: 10/04/17 08:32 Dose: 0.5 mg Sodium Chloride (Ns 0.9% 1000 Ml*) 1,000 mls @ 75 mls/hr IV PER RATE [facility] Last Admin: 10/05/17 23:47 Dose: 75 mls/hr Lorazepam (Ativan Tab(*)) 0.25 mg PO QPM [facility] Last Admin: 10/05/17 17:38 Dose: 0.25 mg Melatonin (Melatonin (Nf)) 3 mg PO BEDTIME PRN; Protocol PRN Reason: Sleep Last Admin: 10/04/17 01:39 Dose: 3 mg Omeprazole (Prilosec Cap*) 20 mg PO QPM [facility] Last Admin: 10/05/17 17:39 Dose: 20 mg Ondansetron HCl (Zofran Inj*) 4 mg IV Q6H PRN PRN Reason: NAUSEA Last Admin: 10/04/17 06:43 Dose: 4 mg Oxycodone HCl (Roxycodone Tab*) 10 mg PO Q4H PRN PRN Reason: PAIN Last Admin: 10/05/17 23:37 Dose: 10 mg Polyethylene Glycol/Electrolytes (Miralax*) 17 gm PO DAILY [facility] Last Admin: 10/06/17 09:22 Dose: 17 gm Polyvinyl Alcohol (Polyvinyl Alcohol 1.4% Opth*) 1 drop BOTH EYES Q2H PRN PRN Reason: DRY EYE Last Admin: 10/06/17 09:23 Dose: 1 drop Senna (Senokot Tab*) 1 tab PO DAILY [facility] Last Admin: 10/06/17 09:22 Dose: 1 tab Sertraline HCl (Zoloft*) 25 mg PO QAM [facility] Last Admin: 10/06/17 09:22 Dose: 25 mg Vital Signs - 8 hr 10/06/17 10/06/17 10/06/17 05:45 07:40 08:00 Temperature 100.4 F 99.3 F Pulse Rate 79 74 Respiratory 18 18 18 Rate Blood Pressure 101/46 121/49 (mmHg) O2 Sat by Pulse 90 99 99 Oximetry 10/06/17 10/06/17 11:15 11:33 Temperature 98.5 F 99.1 F Pulse Rate 70 71 Respiratory 16 14 Rate Blood Pressure 108/48 111/46 (mmHg) O2 Sat by Pulse 99 99 Oximetry Oxygen Devices in Use Now: Nasal Cannula Appearance: NAD Eyes: No Scleral Icterus, PERRLA Ears/Nose/Mouth/Throat: NL Teeth, Lips, Gums Respiratory: Symmetrical Chest Expansion and Respiratory Effort, Clear to Auscultation Cardiovascular: NL Sounds; No Murmurs; No JVD, RRR Abdominal: NL Sounds; No Tenderness; No Distention, No Hepatosplenomegaly Extremities: No Edema, - - left lateral thigh with bandage/ice pack. no strike through. Skin: No Rash or Ulcers, No Nodules or Sclerosis Neurological: - - Oriented to name and year but does not know place or situation. MORRIS. Result Diagrams: 10/06/17 09:01 10/06/17 09:01 Microbiology and Other Data: Microbiology 10/04/17 18:40 Nasal Screen MRSA (PCR)(SHE) - Final Nasal Mrsa Not Detected Assess/Plan/Problems-Billing Assessment: 87 yo female PMH HTN, moderate pHTN, moderate aortic valve regurgitation, GERD, depression p/w mechanical fall and left intertrochanteric femur fx s/p ORIF . Course complicated by post operative acute blood loss anemia, requiring 2u prbc 10/06 - Patient Problems (1) Anemia Current Visit: Yes Status: Acute Code(s): D64.9 - ANEMIA, UNSPECIFIED SNOMED Code(s): 624930626 Comment: likely post operative blood loss into thigh, getting 2u prbc today fiven fall to 5.8. CT abd/pelvis to rule out retroperitoneal hematoma. ldh wnl, hapto pending. stool occult pending. fibrinogen not low, INR wnl. monitor cbc q12. transfuse hgb >7. (2) Fracture, intertrochanteric, left femur Current Visit: Yes Status: Acute Code(s): S72.142A - DISPLACED INTERTROCHANTERIC FRACTURE OF LEFT FEMUR, INIT SNOMED Code(s): 966266195 Comment: s/p ORIF with Dr. Mclean 10/04 pain control, currently oxycodone 10mg q6. zofran prn miralax prn, senna and colace standing. PT. uses walker at [facility]. (3) Hypertension Current Visit: No Status: Acute Priority: Medium Code(s): I10 - ESSENTIAL (PRIMARY) HYPERTENSION SNOMED Code(s): 41837360 Comment: blood pressures fell so Hold home lisinopril 40mg, coreg 12.5mg BID , amlodipine 10mg qpm, hydralazine 10mg TID. got one dose coreg 3.215mg mg this AM but stop given worsening anemia. (4) GERD (gastroesophageal reflux disease) Current Visit: No Status: Acute Priority: Medium Code(s): K21.9 - GASTRO- ESOPHAGEAL REFLUX DISEASE WITHOUT ESOPHAGITIS SNOMED Code(s): 922705106 Comment: Continue prilosec 20mg daily. (5) Hyponatremia Current Visit: No Status: Acute Code(s): E87.1 - HYPO-OSMOLALITY AND HYPONATREMIA SNOMED Code(s): 21538641 Comment: Na 131 on admission, BMP daily -> 130 -> 131 h/o SIADH add uric acid - wnl. [facility], [facility] are send outs, pt likely discharged before would be back. (6) Depression Current Visit: No Status: Acute Priority: Medium Code(s): F32.9 - MAJOR DEPRESSIVE DISORDER, SINGLE EPISODE, UNSPECIFIED SNOMED Code(s): 76984471 Comment: continue zoloft 25mg daily. Status and Disposition: medicine inpatient. PMRU and [facility] referrals out but needing blood transfusions today.
[2017-10-06 15:39] LABS: ABS Basophils 0 10^3/ul (0-0.2); ABS Eosinophils 0.1 10^3/ul (0-0.6); ABS Lymphocytes 0.8 10^3/ul (1.0-4.8); ABS Nucleated RBC 0 10^3/ul; Eosinophil % 1.5 % (0-6); Hematocrit 23 % (35-47); Lymphocyte % 8.2 % (25-47); Mean Corpuscular HGB Conc 34 g/dl (31-36); Mean Corpuscular Hemoglobin 30 pg (27-31); Mean Corpuscular Volume 88 fL (80-97); Mean Platelet Volume 7 um3 (7.4-10.4); Nucleated Red Blood Cells % 0; Platelet Count 145 10^3/ul (150-450); Red Blood Count 2.65 10^6/ul (4.0-5.4); Red Cell Distribution Width 15 % (10.5-15)
--- NOTE | 2017-10-06 16:09 | RAD ---
INDICATION: Post dynamic compression screw internal fixation of LEFT hip fracture October 04, 2017. Assess for retroperitoneal hemorrhage. COMPARISON: July 01, 2017 CT. October 06, 2017 chest radiograph. TECHNIQUE: Multidetector CT images were obtained from the lung bases to the ischial tuberosities. Evaluation of the viscera is limited without IV contrast. Multiplanar reformation. REPORT: Cardiomegaly, coronary artery calcifications, dual-chamber cardiac pacemaker leads. Negative for pericardial effusion. Moderate retrocardiac hiatal hernia. Small bilateral dependent pleural effusions with proportional basilar atelectasis. 0.9 cm sharply circumscribed hypodense subcapsular lesion at the LEFT medial hepatic segment without change is low suspicion. Nodular surface contour of the liver suspicious for cirrhosis. Mildly distended gallbladder without additional CT abnormality. Moderately atrophic pancreas. Unremarkable spleen. Ilio colonic bowel anastomosis noted. Negative for dilated bowel loops. Colonic diverticulosis without visualized acute enteric inflammatory change. Mild edema at the presacral fat space. Small fluid containing indirect appearing LEFT inguinal hernia without inflammatory change. Negative for adrenal lesions. Small parapelvic cyst at the upper pole of the LEFT kidney without change. Negative for urolithiasis or hydronephrosis. Catheterized decompressed urinary bladder. Unremarkable uterus and adnexal regions. Negative for lymphadenopathy. Tortuous visualized distal descending thoracic aorta. Atherosclerotic calcification of the abdominal aorta and iliac arteries. Negative for aortoiliac aneurysm. Mild asymmetric enlargement of the LEFT iliopsoas muscle new compared with the prior exam consistent with a small retroperitoneal hematoma. The LEFT iliopsoas and hematoma complex measures up to 3.5 cm AP compared with 2.0 cm for the normal-appearing muscle on the contralateral side. Diffuse subcutaneous edema. Internal fixation hardware with artifact at the LEFT hip. 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 No pelvic fracture evident. Unchanged grade 1 L4-L5 degenerative anterolisthesis. IMPRESSION: 1. Stigmata of pulmonary edema with increased size of the heart compared with the July 01, 2017 exam as well as small dependent pleural effusions and generalized soft tissue edema. 2. Cirrhotic liver morphology. Negative for ascites or splenomegaly. 3. Small retroperitoneal hematoma involving the LEFT iliopsoas muscle.
[2017-10-06] MEDS: Omeprazole CAP* 20 MG PO SCH (18:19)
[2017-10-06] MEDS: oxyCODONE TAB* 5 MG TAB PO PRN (19:26)
[2017-10-06] MEDS: LORazepam TAB(*) 0.5 MG PO SCH (20:14)
[2017-10-07 06:18] LABS: EGFR Non-African American 106.5 (>60)
[2017-10-07] MEDS: NS 0.9% 1000 ML* 1,000 ML IV SCH (06:53)
[2017-10-07 09:01] LABS: ABS Basophils 0 10^3/ul (0-0.2); ABS Eosinophils 0.1 10^3/ul (0-0.6); ABS Lymphocytes 0.4 10^3/ul (1.0-4.8); ABS Monocytes 0.7 10^3/ul (0-0.8); ABS Neutrophils 7.3 10^3/ul (1.5-7.7); ABS Nucleated RBC 0 10^3/ul; Eosinophil % 1.3 % (0-6); Hematocrit 25 % (35-47); Hemoglobin 8.7 g/dl (12.0-16.0); Lymphocyte % 4.4 % (25-47); Mean Corpuscular HGB Conc 34 g/dl (31-36); Mean Corpuscular Hemoglobin 30 pg (27-31); Mean Corpuscular Volume 87 fL (80-97); Mean Platelet Volume 8 um3 (7.4-10.4); Nucleated Red Blood Cells % 0; Platelet Count 141 10^3/ul (150-450); Red Blood Count 2.92 10^6/ul (4.0-5.4); Red Cell Distribution Width 15 % (10.5-15); White Blood Count 8.6 10^3/ul (3.5-10.8)
[2017-10-07] MEDS: Polyethylene Glycol 3350* 17 GM PACKET PO SCH (09:52)
[2017-10-07] MEDS: Lisinopril TAB* 10 MG PO SCH (09:52)
[2017-10-07] MEDS: Docusate CAP* 100 MG PO SCH ×2 (09:52→21:46)
[2017-10-07] MEDS: Acetaminophen TAB* 325 MG PO PRN ×2 (09:52→16:22)
[2017-10-07] MEDS: oxyCODONE TAB* 5 MG TAB PO PRN ×2 (09:53→16:22)
[2017-10-07] MEDS: Sertraline* 25 MG TAB PO SCH (09:53)
[2017-10-07] MEDS: Senna TAB PO SCH (09:53)
[2017-10-07] MEDS: Carvedilol TAB* 6.25 MG PO SCH ×2 (09:53→21:46)
--- NOTE | 2017-10-07 13:18 | PN ---
Progress Note - Progress Note Date of Service: 10/07/17 SOAP: Subjective: []Patient seen at bedside. She is feeling well today with well controlled pain. Denies any chest pain, shortness of breath, nausea, dizziness, leg numbness. Objective: [] Vital Signs Temp 99.0 F 10/07/17 11:20 Pulse 75 10/07/17 11:20 Resp 18 10/07/17 12:07 BP 123/58 10/07/17 11:20 Pulse Ox 100 10/07/17 11:20 Intake & Output 10/06/17 10/07/17 10/07/17 18:59 06:59 18:59 Intake Total 1715 1324 120 Output Total 150 600 0 Balance 1565 724 120 Intake: IV Fluids 920 914 NS (0.9%) 920 914 Oral 200 410 120 Packed Cells 595 Output: Ng 150 600 0 Laboratory Last Values WBC 8.6 10^3/ul (3.5-10.8) 10/07/17 08:50 RBC 2.92 10^6/ul (4.0-5.4) L 10/07/17 08:50 Hgb 8.7 g/dl (12.0-16.0) L 10/07/17 08:50 Hct 25 % (35-47) L 10/07/17 08:50 MCV 87 fL (80-97) 10/07/17 08:50 MCH 30 pg (27-31) 10/07/17 08:50 MCHC 34 g/dl (31-36) 10/07/17 08:50 RDW 15 % (10.5-15) 10/07/17 08:50 Plt Count 141 10^3/ul (150-450) L 10/07/17 08:50 MPV 8 um3 (7.4-10.4) 10/07/17 08:50 Neut % (Auto) 85.7 % (38-83) H 10/07/17 08:50 Lymph % (Auto) 4.4 % (25-47) L 10/07/17 08:50 [place] % (Auto) 8.4 % (0-7) H 10/07/17 08:50 Eos % (Auto) 1.3 % (0-6) 10/07/17 08:50 Baso % (Auto) 0.2 % (0-2) 10/07/17 08:50 Absolute Neuts (auto) 7.3 10^3/ul (1.5-7.7) 10/07/17 08:50 Absolute Lymphs (auto) 0.4 10^3/ul (1.0-4.8) L 10/07/17 08:50 Absolute Monos (auto) 0.7 10^3/ul (0-0.8) 10/07/17 08:50 Absolute Eos (auto) 0.1 10^3/ul (0-0.6) 10/07/17 08:50 Absolute Basos (auto) 0 10^3/ul (0-0.2) 10/07/17 08:50 Absolute Nucleated RBC 0 10^3/ul 10/07/17 08:50 Nucleated RBC % 0 10/07/17 08:50 Hypochromasia 2+ 10/06/17 09:01 INR (Anticoag Therapy) 0.90 (0.77-1.02) 10/06/17 10:21 APTT 36.0 seconds (26.0-36.3) 10/03/17 19:55 Fibrinogen 510 mg/dL (110.8-404.3) H 10/06/17 10:21 Sodium 131 mmol/L (133-145) L 10/07/17 05:15 Potassium 4.3 mmol/L (3.5-5.0) 10/07/17 05:15 Chloride 104 mmol/L (101-111) 10/07/17 05:15 Carbon Dioxide 21 mmol/L (22-32) L 10/07/17 05:15 Anion Gap 6 mmol/L (2-11) 10/07/17 05:15 BUN 16 mg/dL (6-24) 10/07/17 05:15 Creatinine 0.54 mg/dL (0.51-0.95) 10/07/17 05:15 Est GFR ( Amer) 137.0 (>60) 10/07/17 05:15 Est GFR (Non-Af Amer) 106.5 (>60) 10/07/17 05:15 BUN/Creatinine Ratio 29.6 (8-20) H 10/07/17 05:15 Glucose 87 mg/dL (70-100) 10/07/17 05:15 Lactic Acid 1.2 mmol/L (0.5-2.0) 10/03/17 19:55 Uric Acid 3.9 mg/dL (2.3-6.6) 10/06/17 04:41 Calcium 8.3 mg/dL (8.6-10.3) L 10/07/17 05:15 Magnesium 2.1 mg/dL (1.9-2.7) 10/06/17 09:01 Total Bilirubin 0.50 mg/dL (0.2-1.0) 10/06/17 09:01 AST 30 U/L (13-39) 10/06/17 09:01 ALT 9 U/L (7-52) 10/06/17 09:01 Alkaline Phosphatase 41 U/L (34-104) 10/06/17 09:01 Lactate Dehydrogenase 129 U/L (140-271) L 10/06/17 10:21 Troponin I 0.00 ng/mL (<0.04) 10/03/17 19:55 Total Protein 4.8 g/dL (6.4-8.9) L 10/06/17 09:01 Albumin 2.4 g/dL (3.2-5.2) L 10/06/17 09:01 Globulin 2.4 g/dL (2-4) 10/06/17 09:01 Albumin/Globulin Ratio 1.0 (1-3) 10/06/17 09:01 Urine Color Yellow 10/04/17 00:18 Urine Appearance Clear 10/04/17 00:18 Urine pH 7.0 (5-9) 10/04/17 00:18 Ur Specific [place] 1.011 (1.010-1.030) 10/04/17 00:18 Urine Protein 2+(100 mg/dl) (Negative) H 10/04/17 00:18 Urine Ketones Negative (Negative) 10/04/17 00:18 Urine Blood Negative (Negative) 10/04/17 00:18 Urine Nitrate Negative (Negative) 10/04/17 00:18 Urine Bilirubin Negative (Negative) 10/04/17 00:18 Urine Urobilinogen Negative (Negative) 10/04/17 00:18 Ur Leukocyte Esterase Negative (Negative) 10/04/17 00:18 Urine WBC (Auto) Absent (Absent) 10/04/17 00:18 Urine RBC (Auto) Absent (Absent) 10/04/17 00:18 Urine Bacteria Absent (Absent) 10/04/17 00:18 Urine Glucose Negative (Negative) 10/04/17 00:18 Urine Ascorbic Acid * (Negative) H 10/04/17 00:18 Blood Type B Negative 10/03/17 19:55 Antibody Screen Negative 10/03/17 19:55 Crossmatch See Detail 10/03/17 19:55 General: Well appearing, NAD. Carries on appropriate conversation. LLE: Dressing changed, incision CDI without surrounding erythema. Patient moving much more comfortably today. Thigh is soft and supple without erythema. DF/PF intact. Sensation intact distally. 2+ DP pulse. BL LE: Calves supple and nontender without erythema, edema or palpable cords. Assessment: []S/P ORIF left hip Acute bloodloss anemia Plan: [] WBAT PT/OT HGB improved to 8.7 Lovenox 30 mg sq qd x 3 weeks intended, hospitalist service to determine appropriateness of restarting F/U in [address] Mclean RU referral in
--- NOTE | 2017-10-07 15:18 | PN ---
Subjective Interval History: up to chair with PT. eating more hgb improved, responded appropriately to 2 u prbc. small retroperitoneal bleed left iliopsoas on CT A/p. clear lungs. 99.0 tmax no BM since admission. feels like legs more swollen. Objective Active Medications: Acetaminophen (Tylenol Tab*) 650 mg PO Q6H PRN PRN Reason: FEVER/PAIN Last Admin: 10/07/17 09:52 Dose: 650 mg Carvedilol (Coreg Tab*) 12.5 mg PO BID [facility] Last Admin: 10/07/17 09:53 Dose: 12.5 mg Docusate Sodium (Colace Cap*) 200 mg PO BID [facility] Last Admin: 10/07/17 09:52 Dose: 200 mg Enoxaparin Sodium (Lovenox(*)) 30 mg SUBCUT Q24H [facility] Fentanyl Citrate (Fentanyl*) 25 mcg IV Q5M PRN PRN Reason: PAIN - MODERATE Hydromorphone HCl (Dilaudid Injic*) 0.5 mg IV Q2H PRN PRN Reason: PAIN Last Admin: 10/04/17 08:32 Dose: 0.5 mg Lisinopril (Prinivil Tab*) 20 mg PO DAILY [facility] Last Admin: 10/07/17 09:52 Dose: 20 mg Lorazepam (Ativan Tab(*)) 0.25 mg PO QPM [facility] Last Admin: 10/06/17 20:14 Dose: 0.25 mg Melatonin (Melatonin (Nf)) 3 mg PO BEDTIME PRN; Protocol PRN Reason: Sleep Last Admin: 10/04/17 01:39 Dose: 3 mg Omeprazole (Prilosec Cap*) 20 mg PO QPM [facility] Last Admin: 10/06/17 18:19 Dose: 20 mg Ondansetron HCl (Zofran Inj*) 4 mg IV Q6H PRN PRN Reason: NAUSEA Last Admin: 10/04/17 06:43 Dose: 4 mg Oxycodone HCl (Roxycodone Tab*) 10 mg PO Q4H PRN PRN Reason: PAIN Last Admin: 10/07/17 09:53 Dose: 5 mg Polyethylene Glycol/Electrolytes (Miralax*) 17 gm PO DAILY [facility] Last Admin: 10/07/17 09:52 Dose: 17 gm Polyvinyl Alcohol (Polyvinyl Alcohol 1.4% Opth*) 1 drop BOTH EYES Q2H PRN PRN Reason: DRY EYE Last Admin: 10/06/17 09:23 Dose: 1 drop Senna (Senokot Tab*) 1 tab PO DAILY [facility] Last Admin: 10/07/17 09:53 Dose: 1 tab Sertraline HCl (Zoloft*) 25 mg PO QAM [facility] Last Admin: 10/07/17 09:53 Dose: 25 mg Vital Signs - 8 hr 10/07/17 10/07/17 10/07/17 08:00 08:12 09:53 Temperature 98.6 F Pulse Rate 88 Respiratory 20 18 20 Rate Blood Pressure 157/73 (mmHg) O2 Sat by Pulse 100 100 Oximetry 10/07/17 10/07/17 11:20 12:07 Temperature 99.0 F Pulse Rate 75 Respiratory 20 18 Rate Blood Pressure 123/58 (mmHg) O2 Sat by Pulse 100 Oximetry Oxygen Devices in Use Now: Nasal Cannula Appearance: NAD Eyes: No Scleral Icterus, PERRLA Ears/Nose/Mouth/Throat: NL Teeth, Lips, Gums Neck: NL Appearance and Movements; NL JVP Respiratory: Symmetrical Chest Expansion and Respiratory Effort Cardiovascular: NL Sounds; No Murmurs; No JVD, RRR Abdominal: NL Sounds; No Tenderness; No Distention, No Hepatosplenomegaly Extremities: No Edema Skin: No Rash or Ulcers, No Nodules or Sclerosis Neurological: Alert and Oriented x 3, NL Sensation, NL Muscle Strength and Tone Nutrition: Taking PO's Result Diagrams: 10/07/17 08:50 10/07/17 05:15 Additional Lab and Data: Laboratory Results - last 24 hr 10/03/17 10/07/17 10/07/17 19:55 05:15 08:50 WBC 8.6 RBC 2.92 L Hgb 8.7 L Hct 25 L MCV 87 MCH 30 MCHC 34 RDW 15 Plt Count 141 L MPV 8 Neut % (Auto) 85.7 H Lymph % (Auto) 4.4 L [place] % (Auto) 8.4 H Eos % (Auto) 1.3 Baso % (Auto) 0.2 Absolute Neuts (auto) 7.3 Absolute Lymphs (auto) 0.4 L Absolute Monos (auto) 0.7 Absolute Eos (auto) 0.1 Absolute Basos (auto) 0 Absolute Nucleated RBC 0 Nucleated RBC % 0 Sodium 131 L Potassium 4.3 Chloride 104 Carbon Dioxide 21 L Anion Gap 6 BUN 16 Creatinine 0.54 Est GFR ( Amer) 137.0 Est GFR (Non-Af Amer) 106.5 BUN/Creatinine Ratio 29.6 H Glucose 87 Calcium 8.3 L Blood Type B Negative Antibody Screen Negative Crossmatch See Detail Microbiology and Other Data: Microbiology 10/04/17 18:40 Nasal Nasal Screen MRSA (PCR)(SHE) - Final Mrsa Not Detected Assess/Plan/Problems-Billing Assessment: 87 yo female PMH HTN, moderate pHTN, moderate aortic valve regurgitation, GERD, depression p/w mechanical fall and left intertrochanteric femur fx s/p ORIF . Course complicated by post operative acute blood loss anemia, requiring 2u prbc 10/06. stabilized. Waiting for placement - Patient Problems (1) Anemia Current Visit: Yes Status: Acute Code(s): D64.9 - ANEMIA, UNSPECIFIED SNOMED Code(s): 787484707 Comment: improved to 8.7 likely post operative blood loss into thigh and iliopsoas muscle on CT a/p, s/p 2u prbc ldh wnl, hapto pending. stool occult pending. fibrinogen not low, INR wnl. monitor cbc to daily transfuse hgb >7. (2) Fracture, intertrochanteric, left femur Current Visit: Yes Status: Acute Code(s): S72.142A - DISPLACED INTERTROCHANTERIC FRACTURE OF LEFT FEMUR, INIT SNOMED Code(s): 775264768 Comment: s/p ORIF with Dr. Mclean 10/04 pain control, currently oxycodone 10mg q6. zofran prn miralax prn, senna and colace standing. Add mag citrate. PT. [facility]. (3) Hypertension Current Visit: No Status: Acute Priority: Medium Code(s): I10 - ESSENTIAL (PRIMARY) HYPERTENSION SNOMED Code(s): 30868267 Comment: blood pressures improved added lisinopril 20mg and coreg 12.5mg BID home lisinopril 40mg, coreg 12.5mg BID, amlodipine 10mg qpm, hydralazine 10mg TID. got one dose coreg 3.215mg mg this AM but stop given worsening anemia. (4) GERD (gastroesophageal reflux disease) Current Visit: No Status: Acute Priority: Medium Code(s): K21.9 - GASTRO- ESOPHAGEAL REFLUX DISEASE WITHOUT ESOPHAGITIS SNOMED Code(s): 898619065 Comment: Continue prilosec 20mg daily. (5) Hyponatremia Current Visit: No Status: Acute Code(s): E87.1 - HYPO-OSMOLALITY AND HYPONATREMIA SNOMED Code(s): 02155198 Comment: Na 131 on admission, BMP daily -> 130 -> 131 -> 131 h/o SIADH add uric acid - wnl 3.9. [facility], [facility] are send outs, pt likely discharged before would be back. (6) Depression Current Visit: No Status: Acute Priority: Medium Code(s): F32.9 - MAJOR DEPRESSIVE DISORDER, SINGLE EPISODE, UNSPECIFIED SNOMED Code(s): 12384297 Comment: continue zoloft 25mg daily. Status and Disposition: medicine inpatient. PMRU and [facility] referrals out. Potential d/c 10/08
[2017-10-07] MEDS ORDERED: Magnesium CITRATE* 300 ML BTL PO ONE (15:24)
[2017-10-07] MEDS: Omeprazole CAP* 20 MG PO SCH (17:31)
[2017-10-07] MEDS: LORazepam TAB(*) 0.5 MG PO SCH (21:50)
[2017-10-08 06:20] LABS: ABS Basophils 0 10^3/ul (0-0.2); ABS Eosinophils 0.1 10^3/ul (0-0.6); ABS Lymphocytes 0.4 10^3/ul (1.0-4.8); ABS Monocytes 0.7 10^3/ul (0-0.8); ABS Neutrophils 7.8 10^3/ul (1.5-7.7); ABS Nucleated RBC 0 10^3/ul; Eosinophil % 1.4 % (0-6); Hematocrit 23 % (35-47); Hemoglobin 8.2 g/dl (12.0-16.0); Lymphocyte % 4.5 % (25-47); Mean Corpuscular HGB Conc 35 g/dl (31-36); Mean Corpuscular Hemoglobin 31 pg (27-31); Mean Corpuscular Volume 88 fL (80-97); Mean Platelet Volume 8 um3 (7.4-10.4); Nucleated Red Blood Cells % 0; Platelet Count 160 10^3/ul (150-450); Red Blood Count 2.68 10^6/ul (4.0-5.4); Red Cell Distribution Width 15 % (10.5-15)
[2017-10-08 06:38] LABS: EGFR Non-African American 104.3 (>60)
[2017-10-08] MEDS ORDERED: Enoxaparin(*) 30 MG/0.3 ML SYR SUBCUT SCH (08:00)
[2017-10-08 09:16] VITALS: BP 154/64
[2017-10-08] MEDS: Lisinopril TAB* 10 MG PO SCH (09:28)
[2017-10-08] MEDS: Senna TAB PO SCH (09:29)
[2017-10-08] MEDS: Polyethylene Glycol 3350* 17 GM PACKET PO SCH (09:29)
[2017-10-08] MEDS: oxyCODONE TAB* 5 MG TAB PO PRN (09:29)
[2017-10-08] MEDS: Carvedilol TAB* 6.25 MG PO SCH (09:30)
[2017-10-08] MEDS: Docusate CAP* 100 MG PO SCH (09:30)
[2017-10-08] MEDS: Sertraline* 25 MG TAB PO SCH (09:38)
--- NOTE | 2017-10-08 11:13 | PN ---
Subjective Date of Service: 10/08/17 Interval History: Pt is feeling ok today. She wants to go to [facility] for rehab. She denies any pain at rest. She states she does have significant pain with movement but nursing states she is doing ok with the EZ stand. She denies any SOB at this time. Objective Active Medications: Acetaminophen (Tylenol Tab*) 650 mg PO Q6H PRN PRN Reason: FEVER/PAIN Last Admin: 10/07/17 16:22 Dose: 650 mg Carvedilol (Coreg Tab*) 12.5 mg PO BID [facility] Last Admin: 10/08/17 09:30 Dose: 12.5 mg Docusate Sodium (Colace Cap*) 200 mg PO BID [facility] Last Admin: 10/08/17 09:30 Dose: 200 mg Enoxaparin Sodium (Lovenox(*)) 30 mg SUBCUT Q24H [facility] Last Admin: 10/08/17 09:30 Dose: 30 mg Fentanyl Citrate (Fentanyl*) 25 mcg IV Q5M PRN PRN Reason: PAIN - MODERATE Hydromorphone HCl (Dilaudid Injic*) 0.5 mg IV Q2H PRN PRN Reason: PAIN Last Admin: 10/04/17 08:32 Dose: 0.5 mg Lisinopril (Prinivil Tab*) 20 mg PO DAILY [facility] Last Admin: 10/08/17 09:28 Dose: 20 mg Lorazepam (Ativan Tab(*)) 0.25 mg PO QPM [facility] Last Admin: 10/07/17 21:50 Dose: 0.25 mg Melatonin (Melatonin (Nf)) 3 mg PO BEDTIME PRN; Protocol PRN Reason: Sleep Last Admin: 10/04/17 01:39 Dose: 3 mg Omeprazole (Prilosec Cap*) 20 mg PO QPM [facility] Last Admin: 10/07/17 17:31 Dose: 20 mg Ondansetron HCl (Zofran Inj*) 4 mg IV Q6H PRN PRN Reason: NAUSEA Last Admin: 10/04/17 06:43 Dose: 4 mg Oxycodone HCl (Roxycodone Tab*) 10 mg PO Q4H PRN PRN Reason: PAIN Last Admin: 10/08/17 09:29 Dose: 10 mg Polyethylene Glycol/Electrolytes (Miralax*) 17 gm PO DAILY [facility] Last Admin: 10/08/17 09:29 Dose: Not Given Polyvinyl Alcohol (Polyvinyl Alcohol 1.4% Opth*) 1 drop BOTH EYES Q2H PRN PRN Reason: DRY EYE Last Admin: 10/06/17 09:23 Dose: 1 drop Senna (Senokot Tab*) 1 tab PO DAILY [facility] Last Admin: 10/08/17 09:29 Dose: 1 tab Sertraline HCl (Zoloft*) 25 mg PO QAM [facility] Last Admin: 10/08/17 09:38 Dose: 25 mg Vital Signs - 8 hr 10/08/17 10/08/17 10/08/17 03:29 08:30 09:29 Temperature 98.7 F 98.1 F Pulse Rate 78 72 Respiratory 16 18 16 Rate Blood Pressure 151/71 154/64 (mmHg) O2 Sat by Pulse 99 99 Oximetry Oxygen Devices in Use Now: Nasal Cannula - 1L-99% Appearance: Elderly female sitting up in a chair, NAD Eyes: No Scleral Icterus Ears/Nose/Mouth/Throat: Mucous Membranes Moist Respiratory: Symmetrical Chest Expansion and Respiratory Effort, Clear to Auscultation - diminished throughout Cardiovascular: NL Sounds; No Murmurs; No JVD, RRR Abdominal: NL Sounds; No Tenderness; No Distention Extremities: No Clubbing, Cyanosis Skin: No Rash or Ulcers, No Nodules or Sclerosis, - - incision not inspected by myself Neurological: Alert and Oriented x 3 Result Diagrams: 10/08/17 05:35 10/08/17 05:35 Additional Lab and Data: Laboratory Results - last 24 hr 10/03/17 10/07/17 10/07/17 19:55 05:15 08:50 WBC 8.6 RBC 2.92 L Hgb 8.7 L Hct 25 L MCV 87 MCH 30 MCHC 34 RDW 15 Plt Count 141 L MPV 8 Neut % (Auto) 85.7 H Lymph % (Auto) 4.4 L [place] % (Auto) 8.4 H Eos % (Auto) 1.3 Baso % (Auto) 0.2 Absolute Neuts (auto) 7.3 Absolute Lymphs (auto) 0.4 L Absolute Monos (auto) 0.7 Absolute Eos (auto) 0.1 Absolute Basos (auto) 0 Absolute Nucleated RBC 0 Nucleated RBC % 0 Sodium 131 L Potassium 4.3 Chloride 104 Carbon Dioxide 21 L Anion Gap 6 BUN 16 Creatinine 0.54 Est GFR ( Amer) 137.0 Est GFR (Non-Af Amer) 106.5 BUN/Creatinine Ratio 29.6 H Glucose 87 Calcium 8.3 L Blood Type B Negative Antibody Screen Negative Crossmatch See Detail Microbiology and Other Data: Microbiology 10/04/17 18:40 Nasal Nasal Screen MRSA (PCR)(SHE) - Final Mrsa Not Detected Assess/Plan/Problems-Billing 87 yo female PMH HTN, moderate pHTN, moderate aortic valve regurgitation, GERD, depression p/w mechanical fall and left intertrochanteric femur fx s/p ORIF . Course complicated by post operative acute blood loss anemia, requiring 2u prbc 10/06. - Patient Problems (1) Anemia Current Visit: Yes Status: Acute Code(s): D64.9 - ANEMIA, UNSPECIFIED SNOMED Code(s): 403151850 Comment: Likely post-operative blood loss into thigh and iliopsoas muscle. H/ H is stable after 2 units PRBC. Follow up CBC 10/12/17. (2) Fracture, intertrochanteric, left femur Current Visit: Yes Status: Acute Code(s): S72.142A - DISPLACED INTERTROCHANTERIC FRACTURE OF LEFT FEMUR, INIT SNOMED Code(s): 357121348 Comment: s/p ORIF with Dr. Mclean 10/04. Continue pain control with prn oxycodone. Farhan out in 10 days, F/U with Dr. Mclean in ~14days. (3) Hypertension Current Visit: Yes Status: Acute Code(s): I10 - ESSENTIAL (PRIMARY) HYPERTENSION SNOMED Code(s): 47279143 Comment: BP is now elevated. Will resume all home medications. (4) Depression Current Visit: Yes Status: Acute Code(s): F32.9 - MAJOR DEPRESSIVE DISORDER , SINGLE EPISODE, UNSPECIFIED SNOMED Code(s): 47226672 Comment: Continue zoloft 25mg daily. (5) GERD (gastroesophageal reflux disease) Current Visit: Yes Status: Acute Code(s): K21.9 - GASTRO-ESOPHAGEAL REFLUX DISEASE WITHOUT ESOPHAGITIS SNOMED Code(s): 913293852 Comment: Continue prilosec 20mg daily. (6) DVT prophylaxis Current Visit: Yes Status: Acute Code(s): PDK2013 - SNOMED Code(s): 911520792 Comment: Bcx (7) Full code status Current Visit: Yes Status: Acute Code(s): Z78.9 - OTHER SPECIFIED HEALTH STATUS SNOMED Code(s): 064826071 Status and Disposition: medicine inpatient. PMRU and [facility] referrals out. Potential d/c 10/08
--- NOTE | 2017-10-08 11:48 | PN ---
Progress Note - Progress Note Date of Service: 10/08/17 SOAP: Subjective: []Patient seen OOB in chair. She feels well with no LLE pain, CP, SOB, dizziness or nausea. Objective: []General: OOB in chair. Well appearing, NAD. Carries on appropriate conversation. LLE: Dressing changed, incision CDI without surrounding erythema. Thigh is soft and supple without erythema. DF/PF intact. Sensation intact distally. 2+ DP pulse. BL LE: Calves supple and nontender without erythema, edema or palpable cords. Assessment: []S/P ORIF left hip Acute bloodloss anemia Plan: [] WBAT PT/OT Lovenox 30 mg sq qd x 3 weeks F/U in [address] Mclean PMRU referral in/ rehab placement otherwise. DC today or tomorrow
--- NOTE | 2017-10-09 04:55 | DS ---
CC: Dr. Mitchell * DISCHARGE SUMMARY: DATE OF ADMISSION: 10/03/17 DATE OF DISCHARGE: 10/08/17 PRIMARY CARE PROVIDER: Dr. Mitchell. PRINCIPAL DIAGNOSIS: Left intertrochanteric hip fracture, status post open reduction internal fixation with subsequent acute blood loss anemia. SECONDARY DIAGNOSES: 1. Hypertension. 2. Gastroesophageal reflux disease. 3. Depression/anxiety. DISCHARGE MEDICATIONS: 1. Hydralazine 25 mg p.o. t.i.d. 2. Amlodipine 10 mg p.o. q.h.s. 3. Sertraline 25 mg p.o. daily. 4. Omeprazole 20 mg p.o. daily. 5. Lisinopril 40 mg p.o. daily. 6. Ativan 0.25 mg p.o. q.h.s. 7. Colace 200 mg p.o. q.h.s. 8. Vitamin B12 1000 mcg daily. 9. Vitamin D3 1000 units p.o. daily. 10. Coreg 12.5 mg p.o. twice daily. 11. Aspirin 81 mg p.o. q.h.s. (hold until 10/12/17). 12. Tylenol 325 mg p.o. q.6 hours p.r.n. pain. 13. Oxycodone 5 mg p.o. q.4 hours p.r.n. pain 1 to 5 or 10 mg p.o. q.4 hours p.r.n. pain 6 to 10. 14. Senna 1 tab p.o. daily p.r.n. constipation. 15. MiraLAX 17 g p.o. daily. 16. Lovenox 30 mg subcutaneous daily x21 days. HOSPITAL COURSE: Ms. Morgan is an 87-year-old female who has a history of hypertension, GERD, depression, and anxiety who was ambulating within her house and bent forward to get some jelly beans from a bowl, lost her balance and fell landing on her left hip. The patient had immediate pain. She was brought to the emergency room and was found to have a left intertrochanteric hip fracture. The patient was seen in consultation by Dr. Mclean and taken to the operating room on 10/04/17. The patient has had a slightly complicated course in that she developed acute blood loss anemia with her hemoglobin dropping to 5.8. When she presented, her hemoglobin was 12.5. She received 2 units of packed red blood cells. The patient's hemoglobin has now been stable between 8.0 to 8.7 over the last 4 days. At this point, the patient was felt to be stable for discharge to subacute rehab. Of note, while working up the significant anemia, the patient underwent a CT scan of the abdomen and pelvis, which revealed evidence of pulmonary edema and small dependent pleural effusions as well as cirrhotic liver morphology without any evidence of ascites or splenomegaly, and a small retroperitoneal hematoma involving the left iliopsoas muscle was noted. The left iliopsoas and hematoma complex measures up to 3.5 cm AP compared with 2.0 cm from the normal appearing muscle on the contralateral side. The patient will need a CBC on 10/12/17 to ensure her hemoglobin is stable. She is being discharged on Lovenox for DVT prophylaxis. She typically takes aspirin at home; however, this will be held until 10/12/17. The patient had a Ng catheter placed during this admission. It is being removed just prior to discharge. If the patient is unable to urinate by 1800 this evening, a bladder scan should be considered and possible replacement of the Ng catheter. The patient's blood pressure did drop during her hospitalization and her antihypertensive medication regimen was modified. At this point, she is only on half of her medications. They are all being added back; however, her blood pressure will need to be monitored closely. FOLLOWUP CONCERNS: The patient is being discharged to [facility] for subacute rehab. ACTIVITY LEVEL: As tolerated. DIET: Regular. CONDITION ON DISCHARGE: Stable. The patient is to have her santiago removed in approximately 10 days and to follow up with Dr. Mclean in approximately 14 days. TIME SPENT: Thirty-five minutes was spent discharging this patient. [id number]/[facility] #: [id number] [facility] HOSPITALGuille
== END 2017-10-08 12:19 | DRG 481 ==
LOC: ED 18:32 → SSU 22:45
PROVIDERS: ADMIT Hospitalist; ATTEND Hospitalist
PROC: 0QS704Z Reposition Left Upper Femur with Internal Fixation Device, Open Approach (ICD-10-PCS; 2017-10-04)
PROC: 30233N1 Transfusion of Nonautologous Red Blood Cells into Peripheral Vein, Percutaneous Approach (ICD-10-PCS; principal; 2017-10-06)
DX: S72.142A Displaced intertrochanteric fracture of left femur, initial encounter for closed fracture (principal); J81.1 Chronic pulmonary edema; J90 Pleural effusion, not elsewhere classified; I95.9 Hypotension, unspecified; E22.2 Syndrome of inappropriate secretion of antidiuretic hormone; I27.20 Pulmonary hypertension, unspecified; K74.60 Unspecified cirrhosis of liver; I08.2 Rheumatic disorders of both aortic and tricuspid valves; D62 Acute posthemorrhagic anemia; I10 Essential (primary) hypertension; K21.9 Gastro-esophageal reflux disease without esophagitis; F32.9 Major depressive disorder, single episode, unspecified; F41.9 Anxiety disorder, unspecified; K44.9 Diaphragmatic hernia without obstruction or gangrene; W18.30XA Fall on same level, unspecified, initial encounter; R40.2142 Coma scale, eyes open, spontaneous, at arrival to emergency department; R40.2252 Coma scale, best verbal response, oriented, at arrival to emergency department; S70.12XA Contusion of left thigh, initial encounter; M19.90 Unspecified osteoarthritis, unspecified site; R40.2362 Coma scale, best motor response, obeys commands, at arrival to emergency department; Z79.82 Long term (current) use of aspirin; Y92.009 Unspecified place in unspecified non-institutional (private) residence as the place of occurrence of the external cause; Z95.0 Presence of cardiac pacemaker; Z82.49 Family history of ischemic heart disease and other diseases of the circulatory system; Z72.89 Other problems related to lifestyle
CPT/HCPCS: 36415; 70450; 71045; 72170; 74176; 76000; 80048; 80053; 81003; 81015; 83010; 83605; 83615; 83735; 84484; 84550; 85014; 85018; 85025; 85384; 85610; 85730; 86850; 86900; 86901; 86922; 87641; 93005; 93306; 94640; 94760; 99285; A9270-GY; C1713; C1776; J0690; J1170; J1650; J2250; J2270; J2405; J3010; J3475; P9040